=== PATIENT | female | born 1970 | race Two or more races ===

== ENCOUNTER → 2017-03-20 08:58 | Outpatient (CLI) | payer OTHER, SELFPAY | PROVIDERS: Family Provider Physician Assistant; PCP Physician Assistant; Visit Provider Emergency Medicine | DX: Z71.3 Dietary counseling and surveillance (principal); E11.8 Type 2 diabetes mellitus with unspecified complications ==

== ENCOUNTER 2017-03-23 16:21 | Emergency (ER) | payer OTHER, SELFPAY ==
[2017-03-23 19:07] VITALS: BP 160/99; PULSE 91; RESP 18; TEMP 37; O2SAT 96; BMI 29.2
[2017-03-23 19:22] LABS: Apearance,Urine Clear (Clear); Color,Urine Yellow (Yellow); Ketones,Urine TRACE (Negative); PH,Urine 5.5 (5.0-8.5); Protein,Urine Negative (Negative)
[2017-03-23 19:23] LABS: Bilirubin,Urine Negative (Negative); Blood, Urine Trace (Negative); UTC Leukocyte Esterase,Urine Negative (Negative); UTC Nitrate,Urine Negative (Negative); Urobilinogen,Urine 0.2 EU/dl (0.2)
--- NOTE | 2017-03-23 20:08 | HMH.EDUTC ---
[facility] [place] Disposition Clinical Impression: Flank pain, Urinary frequency, Hyperglycemia Abdominal pain Qualifiers: Abdominal location: unspecified location Qualified Code(s): R10.9 - Unspecified abdominal pain Disposition: Home, Self-Care Condition on Discharge: Good Instructions: DI for Abdominal Pain-Adult Additional Instructions: As we discussed, this could be multiple different things and requires further evaluation. We discussed transfer to ER for that evaluation but you would rather go home tonight and follow up with primary care in the morning. You agree to return to the ER immediately if pain worsens or fever develops tonight. Referrals: Tiffanie Rasheed PA [Primary Care Provider] - (Call office first thing in the morning. Schedule follow up appointment SHASHANK. ) Time of Disposition: 20:26 Medical Decision Making Vital Signs: 03/23/17 19:07 Temperature 98.6 F Temperature Source Temporal Artery Scan Pulse Rate [Right Brachial] 91 H Respiratory Rate 18 Blood Pressure [Right Arm] 160/99 Blood Pressure Mean [Right Arm] 119 Blood Pressure Source [Right Arm] Automatic Cuff Blood Pressure Position [Right Arm] Sitting 02 Sat by Pulse Oximetry 96 Oxygen Delivery Method Room Air - Lab Data Lab results reviewed: Yes: I reviewed the patient's lab results. Lab Results 03/23/17 19:16: Urine Color Yellow, Urine Appearance Clear, Urine pH 5.5, Ur Specific [place] 1.020, Urine Protein Negative, Urine Glucose (UA) 500 mg/dl, Urine Ketones Trace, Urine Blood Trace, Urine Nitrate Negative, Urine Bilirubin Negative, Urine Urobilinogen 0.2, Ur Leukocyte Esterase Negative - Ariel Inquiry Pt receiving controlled substance: No - Reevaluation(s) Reevaluation #1: Lengthy discussion regarding symptoms, [facility] guidelines and the need for further evaluation. Pt opts out of transfer to ER and plans to call PCP in the morning. Aware of the associated risks with not getting further evaluation tonight but still wants to wait and call PCP in morning. Agrees to return tonight for new or worsening symptoms. [facility] [place] HPI - General Stated complaint: possible kidney infection Time Seen by Provider: 03/23/17 20:05 Mode of Arrival: Ambulatory Source of Information: Patient Limitations: No Limitations Description of Symptoms (Recalled from Triage Doc. by RN): c/o possible kidney infection HEENT Symptoms (Recalled from RN notes): No Resp Symptoms (Recalled from RN notes): No Skin Symptoms (Recalled from RN notes): No MS Symptoms (Recalled from RN notes): No Functional Status (Recalled from RN notes): n/a - History of Present Illness Provider Complaint: c/o needing to be checked for a UTI due to sam low back pain x 2 weeks and urinary frequency a little longer . Reports a hx of uncontrolled DM w/ BS 400-500 last month or so. Brother and father found him and having a hard time so she has been under a lot of stress. Working with PCP, Tiffanie, to adjust medication. BS this morning better at 350. Has discussed symptoms with Tiffanie who encouraged her to give it time as should improve once BSs lower. Has seen a insight leader in the last month. No known sick contacts. No fever. Does report that pain is worse on the left and both sides radiate to abdomen but left more so. Hx of hysterectomy. Hx of frequent kidney stones. Reports needing procedures to break up stones every 3-4 months. Denies dysuria, hesitancy, change in urine color or an odor. - Related Data Allergies Allergy/AdvReac Type Severity Reaction Status Date / Time No Known Allergies Allergy Unverified 02/25/17 14:48 - Worker's Comp Is this a Worker's Comp case?: No [facility] History I have reviewed the patient's past medical history: Yes (depression) Medical History: Reports:: Diabetes Mellitus Type 2 Denies:: Cancer, Diabetes Mellitus Type 1, MRSA Amputation: No Fractures: No - *Social History Smoking Status: Never smoker Alcohol Intake: never - Psychiatric History
--- NOTE | 2017-03-23 20:12 | ED_ITS ---
[facility] [place] Clinical Impression: Flank pain, Urinary frequency, Hyperglycemia Abdominal pain Qualifiers: Abdominal location: unspecified location Qualified Code(s): R10.9 - Unspecified abdominal pain Disposition: Home, Self-Care Condition on Discharge: Good Instructions: DI for Abdominal Pain-Adult Additional Instructions: As we discussed, this could be multiple different things and requires further evaluation. We discussed transfer to ER for that evaluation but you would rather go home tonight and follow up with primary care in the morning. You agree to return to the ER immediately if pain worsens or fever develops tonight. Referrals: Tiffanie Rasheed PA [Primary Care Provider] - (Call office first thing in the morning. Schedule follow up appointment SHASHANK. ) Time of Disposition: 20:26 Medical Decision Making Vital Signs: 03/23/17 19:07 Temperature 98.6 F Temperature Source Temporal Artery Scan Pulse Rate [Right Brachial] 91 H Respiratory Rate 18 Blood Pressure [Right Arm] 160/99 Blood Pressure Mean [Right Arm] 119 Blood Pressure Source [Right Arm] Automatic Cuff Blood Pressure Position [Right Arm] Sitting 02 Sat by Pulse Oximetry 96 Oxygen Delivery Method Room Air - Lab Data Lab results reviewed: Yes: I reviewed the patient's lab results. Lab Results 03/23/17 19:16: Urine Color Yellow, Urine Appearance Clear, Urine pH 5.5, Ur Specific [place] 1.020, Urine Protein Negative, Urine Glucose (UA) 500 mg/dl, Urine Ketones Trace, Urine Blood Trace, Urine Nitrate Negative, Urine Bilirubin Negative, Urine Urobilinogen 0.2, Ur Leukocyte Esterase Negative - Ariel Inquiry Pt receiving controlled substance: No - Reevaluation(s) Reevaluation #1: Lengthy discussion regarding symptoms, [facility] guidelines and the need for further evaluation. Pt opts out of transfer to ER and plans to call PCP in the morning. Aware of the associated risks with not getting further evaluation tonight but still wants to wait and call PCP in morning. Agrees to return tonight for new or worsening symptoms. [facility] [place] - General Stated complaint: possible kidney infection Time Seen by Provider: 03/23/17 20:05 Mode of Arrival: Ambulatory Source of Information: Patient Limitations: No Limitations Description of Symptoms (Recalled from Triage Doc. by RN): c/o possible kidney infection HEENT Symptoms (Recalled from RN notes): No Resp Symptoms (Recalled from RN notes): No Skin Symptoms (Recalled from RN notes): No MS Symptoms (Recalled from RN notes): No Functional Status (Recalled from RN notes): n/a - History of Present Illness Provider Complaint: c/o needing to be checked for a UTI due to sam low back pain x 2 weeks and urinary frequency a little longer . Reports a hx of uncontrolled DM w/ BS 400-500 last month or so. Brother and father found him and having a hard time so she has been under a lot of stress. Working with PCP, Tiffanie, to adjust medication. BS this morning better at 350. Has discussed symptoms with Tiffanie who encouraged her to give it time as should improve once BSs lower. Has seen a technologist infectious disease in the last month. No known sick contacts. No fever. Does report that pain is worse on the left and both sides radiate to abdomen but left more so. Hx of hysterectomy. Hx of frequent kidney stones. Reports needing procedures to break up stones every 3-4 months. Denies dysuria, hesitancy, change in urine color or an odor. - Related Data Allergies
[2017-03-23 20:36] VITALS: BP 160/99; PULSE 91; RESP 18; TEMP 37; O2SAT 96
== END 2017-03-23 20:38 | disposition home or self-care (01) ==
PROVIDERS: Emergency Provider Nurse Practitioner Family; Family Provider Physician Assistant; PCP Physician Assistant
DX: R35.0 Frequency of micturition (principal); E11.65 Type 2 diabetes mellitus with hyperglycemia; R10.9 Unspecified abdominal pain
CPT/HCPCS: 81003; 99202

== ENCOUNTER → 2017-04-07 07:55 | Outpatient (CLI) | payer OTHER, SELFPAY ==
--- NOTE | 2017-04-07 07:58 | CT_ITS ---
CT abdomen pelvis wo con Ordering Physician: SUSAN Cochran Patient Age: 46 years: Female HISTORY: TECHNIQUE: Helical CT scanning performed the abdomen pelvis with no oral nor IV contrast utilized. COMPARISON :CT abdomen and pelvis 11/27/2016 FINDINGS Lung bases. No active disease. Stable less than 5 mm nodular density anterior RML . This is been present since 2010. Stable 4 mm calcified granuloma lingula Liver. Diffuse fatty changes generous sized liver Gallbladder removed. Cholecystectomy with no biliary ductal dilatation.. Spleen unremarkable.. Pancreas unremarkable Adrenal stable. Slight fullness left adrenal again noted with no significant nodule. KIDNEYS. Right kidney : two small 2.5 mm nodularity calculi lower pole again noted unchanged as November. No urinary tract obstruction right ureter appears normal caliber and course Left kidney. No renal calculi. No ureteral calculi. Pelvis urinary bladder unremarkable. Numerous phleboliths at the pelvic basin similar to previous studies. Hysterectomy. No adnexal masses. GI TRACT. Low-lying cecum. Appendix removed.. Terminal ileum unremarkable. Minimal stool colon. A few diverticuli throughout colon No bowel dilatation or obstruction.. Minor fatty wall thickening a cecum and ascending colon doubt of significance. No inflammation associated. Previous abdominal wall mesh graft for ventral hernia. A likely a small recurrent 2 cm fat-containing small focal protrusion just superior to the umbilicus axial slice 68. This is stable since previous studies septa note the slight hazy appearance of fat within this hernia. There is also a left lateral/spigelian type ventral hernia noted axial image 95. Focal triangular density is again seen here at this hernia defect &2016 exam.; possibly from hernia repair Correlation required.. In either case stable appearance IMPRESSION: --------- 1. . No acute findings abdomen or pelvis 2. No urinary tract obstruction .Stable small punctate calculi lower pole calyx right kidney. Nonobstructive. 3. Developing Diverticulosis most evident at redundant sigmoid colon. No diverticulitis evident. 4. Stable Mesh graft from ventral hernia repair. Small 2 cm fat-containing hernia appears to recur just above the umbilicus here in this region. Stable except to note slight hazy appearance of fat at this hernia. Correlation required. 5.. Stable Leftleft lateral/spigelian type ventral hernia with likely previous hernia repair
== END ==
PROVIDERS: Family Provider Physician Assistant; PCP Physician Assistant; Visit Provider Physician Assistant
DX: R10.9 Unspecified abdominal pain (principal); R31.9 Hematuria, unspecified; N20.0 Calculus of kidney
CPT/HCPCS: 74176

== ENCOUNTER → 2017-05-13 09:54 | Outpatient (CLI) | payer OTHER, SELFPAY ==
--- NOTE | 2017-05-13 09:57 | XR_ITS ---
XR hip RT 2-3V w/pelvis HISTORY: ITS.REASON: pain/injury from fall last week ORDERING PHYSICIAN: SUSAN Cochran PATIENT AGE: 46 years COMPARISON: None FINDINGS: No fracture or dislocation is evident. No significant degenerative change. No lytic or blastic change. Unremarkable soft tissues. There are multiple abdominal wall tacks. A small bone island is present in the proximal femur at 7 mm laterally IMPRESSION: Negative right hip
== END ==
PROVIDERS: PCP Physician Assistant; Visit Provider Physician Assistant
DX: M25.551 Pain in right hip (principal)
CPT/HCPCS: 73502

== ENCOUNTER → 2017-06-03 08:36 | Outpatient (CLI) | payer OTHER, SELFPAY ==
--- NOTE | 2017-06-03 08:39 | MM_ITS ---
MM Dig screening mamm BI w/CAD CAD Screening ORDERING PHYSICIAN : SUSAN Cochran PATIENT AGE: 46 years GENDER: Female COMPARISON: : October INDICATION: Routine screening. No hormones no new complaints. Noncontributory family history TECHNIQUE: Standard CC and MLO images were obtained. R2 CAD reviewed. FINDINGS: Moderate scattered fibroglandular elements throughout both breasts that moderate breast density RIGHT BREAST:Appear stable and unchanged follow-up in one year on right LEFT BREAST:No new findings left breast. There is area of slight architectural variation at superior left breast but this was seen on previous studies from 2010 CAD computer review highlights no areas of significant concern either breast =====IMPRESSION: . Stable mammogram with No significant new findings. Follow-up in one year recommended and should be encouraged BI-RADS Category: 2 Benign Finding(s) RECOMMENDED FOLLOW-UP: 1YR - 1 YEAR FOLLOW-UP (A letter has been sent to the patient regarding results of the study.)
== END ==
PROVIDERS: Family Provider Physician Assistant; PCP Physician Assistant; Visit Provider Physician Assistant
DX: Z12.31 Encounter for screening mammogram for malignant neoplasm of breast (principal)
CPT/HCPCS: 77067

== ENCOUNTER → 2017-06-10 09:47 | Outpatient (CLI) | payer OTHER, SELFPAY ==
--- NOTE | 2017-06-10 09:49 | XR_ITS ---
XR lumbar spine 2-3V COMPARISON: Thoracolumbar spine 12/25/2016 HISTORY: Low back pain TECHNIQUE: AP and lateral views and spot view lumbar sacral junction FINDINGS: All lumbar vertebrae appear intact and disc spaces are well-maintained throughout. There is a borderline increased lumbosacral angle at the L5-S1 level which could be a cause for instability of the lower back and/or low back pain. The metallic mesh tactics are again seen overlying the mid lumbar spine likely from previous ventral hernia surgery. The SI joints are normal. IMPRESSION: Slightly accentuated lumbar lordosis otherwise unremarkable lumbar spine
--- NOTE | 2017-06-10 09:49 | XR_ITS ---
XR thoracic spine 3V COMPARISON: PA and lateral chest 04/02/2016 HISTORY: Back pain TECHNIQUE: AP and lateral views and swimmer's view cervicothoracic junction FINDINGS: There is normal curvature and alignment. There is no evidence of recent or old compression fracture pedicles are intact and is no paraspinal mass. IMPRESSION: Negative thoracic spine
== END ==
PROVIDERS: PCP Emergency Medicine; Visit Provider Nurse Practitioner Family
DX: M54.9 Dorsalgia, unspecified (principal); M54.6 Pain in thoracic spine; M54.5 Low back pain
CPT/HCPCS: 72072; 72100

== ENCOUNTER 2017-07-10 08:30 | Outpatient (RCR) | payer OTHER, SELFPAY ==
--- NOTE | 2017-06-17 11:32 | HMH.PTOPEV ---
Rehab Outpatient Evaluation Rehab OP Evaluation Start: 06/17/17 11:22 Freq: Status: Active Protocol: Document 06/17/17 11:22 ARMANDO (Rec: 06/17/17 11:32 ARMANDO [id number]) Electronically Signed By Elías Anthony, PT 06/17/17 11:22 Outpatient Therapy Subjective History Subjective History Pt reports h/o chronic R sided LBP and R hip area for ~1yr. Pt reports exacerbation of s/s occurred when she was tripped by her dog, and s/s became more severe and frequent, with R LE buckling, R LE mm spasms , and R groin area pain. Chief Complaint Pain Spasms Stiff Gives out/Unstable Paresthesia Weakness Symptom Type Ache Throb Sharp Dull Symptoms Relieved By Rest/Positioning Symptoms Aggravated By Sitting Physical Activity Walking Prior Functional Limitations Lifting Housework Sitting Stairs Bending/Stooping Current Functional Limitations Lifting Housework Sitting Stairs Bending/Stooping Symptom Description Constant but Variable Level of pain today (0-10) 5 Pain scale - at its best (0-10) 3 Pain scale - at its worst (0-10) 8 Lumbopelvic Eval Posture Thoracic Spine Posture Standing Position Neutral Lumbar Spine Posture Standing Position Increased Lordosis Assistive device Assistive Devices None / NA Gait Observation General Gait Pattern Observation Antalgic Gait Decrease Stride Lngth (R) Palapation tenderness right paraspinal tenderness Yes: 3/4 buttock tenderness Yes: 3/4 Lumbar/Sacral Palpation Findings Tenderness Muscle Guarding Lumbar/Sacral Palpation Overall Comment 3/4 Accessory Movement T-spine Vertebrae Accessory Movements Central P/A [place] that Elicit Symptoms S1 right bilateral Range of Motion Lumbar Spine Active Flexion Range of 0-45 Motion (degrees) Lumbar Spine Active Extension Range of 0-25 Motion (degrees
== END 2017-07-10 08:31 | disposition home or self-care (01) ==
LOC: PT 08:30
PROVIDERS: Family Provider Physician Assistant; PCP Emergency Medicine; Visit Provider Nurse Practitioner Family
DX: M25.551 Pain in right hip (principal); M54.9 Dorsalgia, unspecified
CPT/HCPCS: 97010; 97014; 97033; 97035; 97110; G0283

== ENCOUNTER → 2017-07-29 12:21 | Outpatient (CLI) | payer OTHER, SELFPAY ==
[2017-07-29 14:32] LABS: Free T4 (Free Thyroxine) 0.84 ng/dl (0.76-1.46); Thyroid Stimulating Hormone 0.68 uIU/ml (0.358-3.740)
== END ==
PROVIDERS: Family Provider Physician Assistant; PCP Emergency Medicine; Visit Provider Nurse Practitioner Family
DX: R39.89 Other symptoms and signs involving the genitourinary system (principal); L65.9 Nonscarring hair loss, unspecified; E11.9 Type 2 diabetes mellitus without complications
CPT/HCPCS: 36415; 84439; 84443

== ENCOUNTER → 2017-10-13 10:05 | Outpatient (CLI) | payer OTHER, SELFPAY ==
--- NOTE | 2017-10-13 11:35 | XR_ITS ---
XR KUB HISTORY: ITS.REASON: Flank Pain ORDERING PHYSICIAN: Hiwot Oneil PATIENT AGE: 47 years COMPARISON: None FINDINGS: Multiple small calcific densities overlie the mid abdominal region on the left consistent with phleboliths. Sondra also present in the right mid to lower abdomen and multiple pelvic phleboliths are present. Multiple abdominal wall tacks are present. No obvious renal or ureteral calculi. IMPRESSION: No acute finding
== END ==
LOC: LAB 10:11 → RAD 11:36
PROVIDERS: PCP Nurse Practitioner Family; Visit Provider Nurse Practitioner Family
DX: R10.9 Unspecified abdominal pain (principal); R11.2 Nausea with vomiting, unspecified; M54.5 Low back pain
CPT/HCPCS: 74018; 87086

== ENCOUNTER → 2017-11-20 13:49 | Outpatient (CLI) | payer OTHER, SELFPAY ==
--- NOTE | 2017-11-20 13:52 | XR_ITS ---
XR foot wt bearing LT 3V HISTORY: ITS.REASON: pain ORDERING PHYSICIAN: Odalys Oliver DPM PATIENT AGE: 47 years COMPARISON: None FINDINGS: No fracture or dislocation. No lytic or blastic change. There is normal mineralization.. The joint spaces are well-preserved. No significant degenerative/arthritic changes. No erosive changes evident. IMPRESSION: Negative, no acute finding
--- NOTE | 2017-11-20 13:52 | XR_ITS ---
XR foot wt bearing RT 3V HISTORY: ITS.REASON: pain ORDERING PHYSICIAN: Odalys Oliver DPM PATIENT AGE: 47 years COMPARISON: None FINDINGS: Mild hallux valgus noted with mild hypertrophic change and soft tissue swelling at the distal aspect of the first metatarsal. No fracture or dislocation. No other significant anomalies. IMPRESSION: Mild hallux valgus with bunion formation
== END ==
PROVIDERS: PCP Emergency Medicine; Visit Provider Podiatrist
DX: M79.672 Pain in left foot (principal); M79.671 Pain in right foot
CPT/HCPCS: 73630

== ENCOUNTER → 2018-06-22 13:30 | Outpatient (CLI) | payer OTHER, SELFPAY ==
[2018-06-22 14:39] LABS: Basophils % 0.6 % (0.1-2.0); Eosinophils # 0.1 K/mm3 (0.0-0.4); Eosinophils % 1.8 % (0.1-12.0); Hematocrit 43.2 % (37.0-47.0); Hemoglobin 14.5 g/dL (12.2-16.2); Lymphocytes # 2.7 K/mm3 (0.7-4.5); Lymphocytes % 39.5 % (10-50); Mean Corpuscular HGB Conc 33.6 g/dL (31.8-35.4); Mean Corpuscular Hemoglobin 30.1 pg (27.0-31.2); Mean Corpuscular Volume 89.8 fl (81-99); Mean Platelet Volume 9.1 fl (7.4-10.4); Monocytes # 0.3 K/mm3 (0.1-1.0); Monocytes % 4.3 % (1.7-9.3); Neutrophils # 3.7 K/mm3 (1.8-7.8); Neutrophils % 53.8 % (37.0-80.0); Platelet Count 240 K/mm3 (142-424); Red Blood Count 4.81 M/mm3 (4.20-5.40); Red Cell Distribution Width 12.7 % (11.5-17.5); White Blood Count 6.9 K/mm3 (4.8-10.8)
[2018-06-22 14:54] LABS: T4 (Thyroxine) 8.3 ug/dl (4.7-13.3); Thyroid Stimulating Hormone 0.67 uIU/ml (0.358-3.740)
== END ==
PROVIDERS: Visit Provider Nurse Practitioner Family
DX: R10.9 Unspecified abdominal pain (principal)
CPT/HCPCS: 84436; 84443; 85025

== ENCOUNTER → 2018-07-17 09:24 | Outpatient (CLI) | payer OTHER, SELFPAY ==
--- NOTE | 2018-07-17 09:26 | MM_ITS ---
MM Dig screening mamm BI w/CAD CAD Screening COMPARISON: Digital mammograms with CAD 06/03/2017 and 04/04/2016 INDICATION: There is no personal or family history of breast cancer TECHNIQUE: Standard CC and MLO images were obtained. R2 CAD reviewed. FINDINGS: Moderate diffuse fibroglandular densities are seen in both breast. Again noted is a benign-appearing macrocalcification upper outer quadrant right breast. There is no suspicious lesion and there are no suspicious microcalcifications. IMPRESSION: Moderate breast density with no suspicious lesion seen BI-RADS Category: 2 Benign Finding(s) RECOMMENDED FOLLOW-UP: 1YR - 1 YEAR FOLLOW-UP (A letter has been sent to the patient regarding results of the study.)
== END ==
PROVIDERS: PCP Emergency Medicine; Visit Provider Physician Assistant
DX: Z12.31 Encounter for screening mammogram for malignant neoplasm of breast (principal)
CPT/HCPCS: 77067

== ENCOUNTER → 2018-07-23 08:45 | Outpatient (CLI) | payer OTHER, SELFPAY ==
[2018-07-23 09:05] LABS: Blood Urea Nitrogen 11 mg/dL (7-18); Creatinine,Serum 0.71 mg/dL (0.55-1.02); Estimated Glomerular Filt Rate 87 ml/min (>60); GFR (African American) 106 ML/MIN (>60)
--- NOTE | 2018-07-23 09:32 | CT_ITS ---
CT abdomen pelvis w con INDICATION: Left lower quadrant pain. HISTORY of spigeleian hernia hernia repair ITS.REASON: left lower quad pain ORDERING PHYSICIAN: Sha Marinelli MD PATIENT AGE: 47 years COMPARISON: CT abdomen and pelvis a 918 TECHNIQUE: 75 cc of the Optiray 350 given IV contrast.. Redicat oral contrast given Axial images obtained with sagittal and coronal reformats. All CT scans at the facility use one or more dose reduction, viz: automated exposure control, ma/kV adjustment per patient size (including targeted exams where dose is matched to indication, i.e. head), or iterative reconstruction technique. FINDINGS: Lower thorax. Lung bases clear with no acute findings. Heart normal size. No pericardial effusion abdomen liver, spleen, pancreas, adrenals appear satisfactory. Unremarkable Gallbladder surgically removed with clips at gallbladder fossa. No biliary ductal dilatation. No pancreatic ductal dilatation. tract. No urinary tract calculi or obstruction. Right kidney: slight generous right renal pelvis again observed; but this appears to be similar to studies dating back to March 2017 . Left kidney unremarkableq Ureters are normal course and caliber Pelvis. No adnexal masses. Uterus is been removed. . No significant free fluid Air within the vagina upper normal wall thickness Urinary bladder upper normal wall thickness. GI TRACT stomach unremarkable duodenal loop upper normal wall thickness. Small bowel. Unremarkable. Normal caliber. Contrast throughout. No wall thickening. No dilatation. Terminal ileum appears normal.q.. No evidence of appendicitis. No inflammatory changes right lower quadrant. Left lower quadrant a few diverticuli at sigmoid colon but no good evidence of diverticulitis Moderate stool throughout the colon. spigeleian hernia hernia repair anterior LLQ related to such.-No change since 2018 study. Slight bulging of fat overlying this area. [place] soft tissue density hernia repair feature along inner aspect of the hernia-Stable lSmall 18 mm fat-containing small round ventral periumbilical hernia along the superior aspect of the umbilicus.... Ventral . Mesh graft anterior hernia repairs with mesh graft applied to the anterior aspect of the anterior abdominal wall and secured by the numerous anchors. Thiscovers the umbilicus as well as the small fat-containing para umbilical midline hernia discussed above. . No retroperitoneal adenopathy. No significant pelvic or mesenteric adenopathy. Osseous structures. No significant findings. IMPRESSION: No acute findings in the abdomen or pelvis. No bowel dilatation or obstruction. Only moderate solid stool throughout the colon . Perhaps few small developing diverticuli at the sigmoid colon but no acute diverticulitis No acute inflammatory changes at the pelvis Previousspigeleian hernia hernia repair -unchanged. No additional findings or inflammation here. Previous anterior mesh graft appear to have progressed previous ventral hernia . No urinary tract calculi nor obstruction.
== END ==
PROVIDERS: Visit Provider Surgery
DX: K43.9 Ventral hernia without obstruction or gangrene (principal); R10.32 Left lower quadrant pain; Z09 Encounter for follow-up examination after completed treatment for conditions other than malignant neoplasm
CPT/HCPCS: 36415; 74177; 82565; 84520; Q9967

== ENCOUNTER 2018-09-09 10:00 | Outpatient (RCR) | payer OTHER, SELFPAY ==
--- NOTE | 2018-08-11 09:00 | HMH.PTOPEV ---
PT Outpatient Evaluation Rehab PT Outpatient Evaluation Start: 08/11/18 08:04 Freq: Status: Active Protocol: Document 08/11/18 08:45 OSCARROBIN (Rec: 08/11/18 09:00 ABY [id number]) Electronically Signed By Ej Caruso PT 08/11/18 08:45 Outpatient Therapy Subjective History Subjective History This is the initial Physical Therapy evalution for Safia Tobias. Pt is a 48 y/o female referred to PT for c/o pain and burning in B feet. Pt reports she has neuropathy from diabetes, and possibly from back issues. Pt reports she does not think physical therapy will help with her neuropathy. Benefits of exercise on blood sugar and circulation were explained to pt and she agrred to give therapy a try ; also explained was the benefits and necessity of lifestyle changes to improving blood sugar and A1C levels. Chief Complaint Pain,Swelling,Paresthesia Symptom Type Ache,Throb,Sharp,Dull,Stabbing ,Burning,Numbness,Tingling, Shooting Symptoms Relieved By Rest/Positioning Symptoms Aggravated By Standing,Physical Activity, Walking Prior Functional Limitations Housework,Sleeping,Standing, Recreation Activity,Walking, Stairs,Balance Current Functional Limitations Housework,Sleeping,Standing, Recreation Activity,Walking, Stairs,Balance Symptom Description Constant but Variable Level of pain today (0-10) 3 Pain scale - at its best (0-10) 3 Pain scale - at its worst (0-10) 7 Ankle/Foot Eval Gait Observation General Gait Pattern Observation Antalgic Gait,Wide Based Gait Assistive Device Ambulation Assistive Device None ROM bilateral Ankle/Foot ROM Reason Not Measured Within Functional Limits MMT Ankle Dorsiflexion Strength Grade 4- Good- Ankle Plantarflexion Strength Grade 4 Good Foot Eversion Strength Grade 4- Good- Foot Inversion Strength Grade 4 Good Ankle Dorsiflexors Muscle Tone Normal Description Neuro tests normal sensation to monofilament No: 1 out of 10 sensation to LT decrease sensation to monofilament Yes: 1/10 s
== END 2018-09-09 10:05 | disposition home or self-care (01) ==
LOC: PT 10:00
PROVIDERS: Visit Provider Podiatrist
DX: R29.898 Other symptoms and signs involving the musculoskeletal system (principal)
CPT/HCPCS: 97110; 97112; 97163

== ENCOUNTER → 2018-10-23 12:02 | Outpatient (CLI) | payer OTHER, SELFPAY ==
--- NOTE | 2018-10-23 12:06 | XR_ITS ---
PROCEDURE: XR WRIST LT W SCAPHOID CLINICAL INDICATION: fall Posttraumatic pain COMPARISON: No exams were available for comparison FINDINGS: No fracture, dislocation, lytic change, or blastic change evident. No significant degenerative change IMPRESSION: Negative left wrist Dictated by: Simón Muñoz MD 10/23/2018 13:06 Signed by: <Electronically signed by Simón Muñoz MD in [place]> 10/23/2018 13:06
--- NOTE | 2018-10-23 12:06 | XR_ITS ---
PROCEDURE: XR HAND LT MIN 3V CLINICAL INDICATION: fall Pain following injury COMPARISON: No exams were available for comparison FINDINGS: No fracture, dislocation, lytic change, or blastic change evident. No significant degenerative change IMPRESSION: Negative left hand Dictated by: Simón Muñoz MD 10/23/2018 13:06 Signed by: <Electronically signed by Simón Muñoz MD in [place]> 10/23/2018 13:06
== END ==
PROVIDERS: PCP Emergency Medicine; Visit Provider Nurse Practitioner Family
DX: M25.532 Pain in left wrist (principal); M79.642 Pain in left hand
CPT/HCPCS: 73110; 73130

== ENCOUNTER → 2018-10-27 10:42 | Outpatient (CLI) | payer OTHER, SELFPAY ==
--- NOTE | 2018-10-27 10:47 | XR_ITS ---
PROCEDURE: XR FOOT WT BEARING LT 3V CLINICAL INDICATION: bilaterbal foot/ankle pain Diabetic neuropathy COMPARISON: No exams were available for comparison FINDINGS: No fracture or dislocation. No lytic or blastic change. There is normal mineralization. The joint spaces are well-preserved. No significant degenerative/arthritic changes. No erosive changes evident. Other findings:None. IMPRESSION: No acute findings. Dictated by: Simón Muñoz MD 10/27/2018 12:40 Signed by: <Electronically signed by Simón Muñoz MD in [place]> 10/27/2018 12:40
--- NOTE | 2018-10-27 10:47 | XR_ITS ---
PROCEDURE: XR FOOT WT BEARING RT 3V CLINICAL INDICATION: bilaterbal foot/ankle pain Foot pain, ankle pain COMPARISON: No exams were available for comparison FINDINGS: No fracture or dislocation. No lytic or blastic change. There is normal mineralization. The joint spaces are well-preserved. No significant degenerative/arthritic changes. No erosive changes evident. Other findings:Mild hallux valgus IMPRESSION: No acute findings. Dictated by: Simón Muñoz MD 10/27/2018 11:17 Signed by: <Electronically signed by Simón Muñoz MD in [place]> 10/27/2018 11:17
--- NOTE | 2018-10-27 10:47 | XR_ITS ---
PROCEDURE: XR ANKLE WT BEARING RT MIN 3V CLINICAL INDICATION: bilaterbal foot/ankle pain Ankle pain COMPARISON: No exams were available for comparison FINDINGS: No fracture, dislocation, lytic change, or blastic change evident. No significant degenerative change IMPRESSION: No acute findings. Dictated by: Simnó Muñoz MD 10/27/2018 11:16 Signed by: <Electronically signed by Simón Muñoz MD in [place]> 10/27/2018 11:16
--- NOTE | 2018-10-27 10:47 | XR_ITS ---
PROCEDURE: XR ANKLE WT BEARING LT MIN 3V CLINICAL INDICATION: bilaterbal foot/ankle pain Ankle pain COMPARISON: No exams were available for comparison FINDINGS: No fracture, dislocation, lytic change, or blastic change evident. No significant degenerative change. Small phleboliths is present along the medial aspect of the leg IMPRESSION: No acute findings. Dictated by: Simón Muñoz MD 10/27/2018 11:17 Signed by: <Electronically signed by Simón Muñoz MD in [place]> 10/27/2018 11:17
== END ==
PROVIDERS: PCP Physician Assistant; Visit Provider Podiatrist
DX: M79.672 Pain in left foot (principal); M79.671 Pain in right foot; M25.572 Pain in left ankle and joints of left foot; M25.571 Pain in right ankle and joints of right foot
CPT/HCPCS: 73610; 73630

== ENCOUNTER → 2019-01-01 11:08 | Outpatient (CLI) | payer OTHER, SELFPAY ==
--- NOTE | 2019-01-01 11:13 | XR_ITS ---
PROCEDURE: XR FINGER LT MIN 2V CLINICAL INDICATION: pain Injury with pain COMPARISON: No exams were available for comparison FINDINGS: No fracture or dislocation. No lytic or blastic change. There is normal mineralization. The joint spaces are well-preserved. No significant degenerative/arthritic changes. No erosive changes evident. Other findings:No radiopaque foreign body IMPRESSION: No acute findings. Dictated by: Simón Muñoz MD 01/01/2019 12:17 Electronically signed by Simón Muñoz MD in [place] 01/01/2019 12:17
== END ==
PROVIDERS: PCP Emergency Medicine; Visit Provider Nurse Practitioner Family
DX: T14.8XXA Other injury of unspecified body region, initial encounter (principal)
CPT/HCPCS: 73140

== ENCOUNTER → 2019-02-09 09:52 | Outpatient (CLI) | payer OTHER, SELFPAY ==
--- NOTE | 2019-02-09 09:59 | XR_ITS ---
PROCEDURE: XR CHEST 2V CLINICAL HISTORY: cough, fever Asthma, cough, fever COMPARISON: CTAC CTA-CHEST from 02/21/2015 CXR CHEST(2 VIEWS-NOT PORTABLE) from 02/21/2015 CXR CHEST(2 VIEWS-NOT PORTABLE) from 04/02/2016 CXR1VP XR chest portable from 01/15/2018 FINDINGS: The cardiomediastinal silhouette and pulmonary vascularity are within normal limits. The lungs are clear without infiltrates, suspicious nodules, or pleural effusions. There is some slight increased density in the left lung base which may be related to pleural fat. No air bronchograms. Somewhat similar appearance on 04/02/2016. No acute bony findings. IMPRESSION: No acute findings. Dictated by: Simón Muñoz MD 02/09/2019 16:21 Electronically signed by Simón Muñoz MD in [place] 02/09/2019 16:21
== END ==
PROVIDERS: PCP Physician Assistant; Visit Provider Physician Assistant
DX: R05 Cough (principal)
CPT/HCPCS: 71046

== ENCOUNTER → 2019-04-02 11:22 | Outpatient (CLI) | payer OTHER, SELFPAY ==
--- NOTE | 2019-04-02 11:23 | NM_ITS ---
APPROVED REPORT Exam: Nuclear Stress Test Indication: QUESTIONABLE AK, HTN, DM, HYPERLIPIDEMIA, FM HX, CP, SOB, PALPITATIONS, SYNCOPE, FATIGUE, ABN EKG Patient Location: Outpatient Stress Tech: Lashonda Jallohnkson NM Tech:Janna Garcia ARRMarah RT (R)(N)(M) Ht: 5 ft 1 in Wt: 156 lbs Bra Size: 36C HR: 74 bpm BP: 123/86 mmHg BSA: 1.70 m2 BMI: 29.4 History: QUESTIONABLE AK, HTN, DM, HYPERLIPIDEMIA, FM HX, CP, SOB, PALPITATIONS, SYNCOPE, FATIGUE, ABN EKG Procedure: Patient exercised on Eliezer protocol 7:30 minutes and sec, resting heart rate 74 bpm, resting blood pressure 123/86 mmHg, with exercise maximum heart rate achived was 164 bpm which is Greater than 85 % of the maximum predicted heart rate and blood pressure was 145/86 mmHg. Test was stopped due to Shortness of breath. Patient denied any complaint of chest pain. Patient has Good exercise capacity, achieved 10.1 METs of workload on treadmill, the blood pressure response to exercise was Adequate. Electrocardiogram Resting electrocardiogram showed sinus rhythm poor R wave progression nonspecific ST-T changes, with exercise there is less than 1.[address] segment depression noted from the baseline EKG. The EKG portion of the exercise Myoview is nondiagnostic due to baseline abnormal EKG. Cardiac Stress and Resting SPECT Images: Cardiac Stress and Resting SPECT images were obtained using technetium 99m Myoview 31.3 mCi stress and 10.93 mCi at rest. Gated SPECT for analysis of segmental wall motion and calculation of the ejection fraction also done. Cardiac stress and resting SPECT images show uniform myocardial activity without segmental perfusion abnormality, computer derived ejection fraction is over 65% with no regional wall motion abnormality, right ventricle is normal size and contractility. Conclusion: 1. The EKG portion of the exercise Myoview is nondiagnostic due to baseline abnormal EKG, patient has good exercise capacity achieved 10.1 mets of workload on treadmill, the blood pressure response to exercise was adequate, there was no exercise-induced chest discomfort, test was stopped due to shortness of breath. 2. No scintigraphic evidence of reversible ischemia seen at this level of exercise, computer derived ejection fraction is over 65% with no regional wall motion abnormality, right ventricle is normal size and contractility. 3. Normal exercise Myoview study. Electronically signed by : Reece Steven, 04/02/2019 15:24:34
--- NOTE | 2019-04-02 13:30 | CA_ITS ---
APPROVED REPORT Exam: Exercise Treadmill Technologist: Mallorie Downey, Ht: 5 ft 1 in Wt: 156 lbs BSA: 1.70 m2 HR: 74 bpm BP: 123/86 mmHg Rhythm: SINUS RHYTHM Indications: Chest pain Medical History Medical History: HTN, Hyperlipidemia, Diabetic ??? Noninsulin Medications: Lisinopril,,,,, Metformin,,,,, Gabapentin,,,,, INSULIN,,,,, Diclofenac,,,,, Tizanidine,,,,, Venlafaxine,,,,, Amiltriptyline,,,,, Quetiapine,,,,, AtorvastaIN,,,,, Sitagliptin,,,,, Metoprol,,,,, Allergies: NKA Cardiac Risk Factors: HTN, Hyperlipidemia, Diabetes (non-insulin), FHX of CAD Stress Test Details Test: Sylwia HR Resting HR: 80 bpm Max Heart Rate (APMHR): 170 bpm Max HR Achieved: 184 bpm Target HR (85% APMHR): 144 bpm % of APMHR: 108 Recovery HR: 169 bpm BP Resting BP: 123.0/86.0 mmHg Max BP: 145.0/92.0 mmHg Recovery BP: 145.0/86.0 mmHg ECG Resting ECG: SINUS RHYTHM Clinical Exercise duration: 07:45 min Highest Stage Achieved: Exercise capacity: 10.1 METs Stress ECG Conclusion SYLWIA PROTOCOL COMPLETED. EXERCISED 7:45. METS = 10.1. MAX BP 145/92. MAX HEART RATE 184 BPM. TEST STOPPED DUE TO SOA. NO CHEST PAIN. SHORTNESS OF BREATH AT PEAK EXERCISE BUT RESOLVED IN RECOVERY. NO ECTOPY. LESS THAN 1.5MM ST DEPRESSION. IMAGES TO FOLLOW, Test Summary REST . . . . . . . Standing REST . . . . . . . Standing REST . . . . . . . Sitting REST 04:31 0.0 0.0 80 . 123/ 86 . . Stage 1 01:00 10.0 1.7 103 . . . . Stage 1 02:00 10.0 1.7 114 . . . . Stage 1 03:00 10.0 1.7 123 . 125/ 85 . . Stage 2 01:00 12.0 2.5 136 . . . . Stage 2 02:00 12.0 2.5 149 . . . . Stage 2 03:00 12.0 2.5 162 . 145/ 92 . . Stage 3 . . . . . . . Myoview Injected Stage 3 01:00 14.0 3.4 175 . . . . Stage 3 01:45 14.0 3.4 184 . . . Stop exercise at 07:45 RECOVERY 01:00 0.0 0.0 169 . 145/ 86 . . RECOVERY 02:00 0.0 0.0 152 . 145/ 86 . . RECOVERY 03:00 0.0 0.0 133 . 134/ 80 . . RECOVERY 04:00 0.0 0.0 128 . 140/ 76 . . RECOVERY 05:00 0.0 0.0 120 . 131/ 71 . . RECOVERY 05:49 0.0 0.0 116 . 118/ 68 . . Electronically signed by : Reece Steven, 04/02/2019 15:22:09
== END ==
PROVIDERS: PCP Emergency Medicine; Visit Provider Nurse Practitioner Family
DX: R07.9 Chest pain, unspecified (principal); R06.00 Dyspnea, unspecified; I10 Essential (primary) hypertension
CPT/HCPCS: 78452; 93017; A9502

== ENCOUNTER → 2019-04-06 09:08 | Outpatient (CLI) | payer OTHER, SELFPAY ==
--- NOTE | 2019-04-06 09:12 | XR_ITS ---
PROCEDURE: XR ANKLE WT BEARING RT MIN 3V CLINICAL INDICATION: bunion of right great toe COMPARISON: [id number] XR foot wt bearing RT 3V from 11/20/2017 XR FOOT WT BEARING RT 3V from 10/27/2018 XR ANKLE WT BEARING RT MIN 3V from 10/27/2018 XR FOOT WT BEARING RT 3V from 04/06/2019 FINDINGS: Normal alignment. Preserved mortise. Unremarkable talar dome. The low on the lateral view there is an of 13 mm by 5 mm cystic appearing region at the distal tibia. This may be due to artifact from prominent bony trabeculation. Not significantly changed from 11/20/2017. The There is mild hallux valgus with mild osteoarthritic change at the 1st MTP joint not significantly changed. Otherwise negative foot. IMPRESSION: Overall no significant change with no acute finding. Minimal hallux valgus. Decreased attenuation of the distal tibia nonspecific and may be artifact from prominent trabeculation Dictated by: Simón Muñoz MD 04/06/2019 15:03 Electronically signed by Simón Muñoz MD in [place] 04/06/2019 15:03
== END ==
PROVIDERS: PCP Emergency Medicine; Visit Provider Podiatrist
DX: M21.611 Bunion of right foot (principal)
CPT/HCPCS: 73610; 73630

== ENCOUNTER 2019-08-05 17:56 | Emergency (ER) | payer OTHER, SELFPAY ==
[2019-08-05 18:03] VITALS: BP 144/95; PULSE 117; RESP 18; O2SAT 96; BMI 31.5
[2019-08-05 18:18] VITALS: BP 144/95; PULSE 117; RESP 18; TEMP 37; O2SAT 96; BMI 31.5
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
[2019-08-05 19:05] VITALS: BP 144/95; PULSE 117; RESP 18; TEMP 37; O2SAT 96
== END 2019-08-05 19:10 | disposition home or self-care (01) ==
PROVIDERS: Emergency Provider Nurse Practitioner Family; PCP Emergency Medicine
DX: T23.192A Burn of first degree of multiple sites of left wrist and hand, initial encounter (principal); T21.11XA Burn of first degree of chest wall, initial encounter; X12.XXXA Contact with other hot fluids, initial encounter; Y92.019 Unspecified place in single-family (private) house as the place of occurrence of the external cause; I10 Essential (primary) hypertension; E78.5 Hyperlipidemia, unspecified; E55.9 Vitamin D deficiency, unspecified; Z87.891 Personal history of nicotine dependence; E11.9 Type 2 diabetes mellitus without complications; Z79.4 Long term (current) use of insulin
CPT/HCPCS: 99201

== ENCOUNTER → 2019-08-09 14:41 | Outpatient (CLI) | payer OTHER, SELFPAY ==
--- NOTE | 2019-08-09 14:48 | XR_ITS ---
PROCEDURE: XR KNEE RT 3V CLINICAL INDICATION: recent fall Posttraumatic pain COMPARISON: KNEE3R KNEE-3 VIEWS-RT from 07/05/2014 FINDINGS: No fracture or dislocation. No lytic or blastic change. There is normal mineralization. The joint spaces are well-preserved. No significant degenerative/arthritic changes. No erosive changes evident. Other findings:None. IMPRESSION: No acute findings. Dictated by: Simón Muñoz MD 08/09/2019 15:35 Electronically signed by Simón Muñoz MD in [place] 08/09/2019 15:35
== END ==
PROVIDERS: PCP Emergency Medicine; Visit Provider Physician Assistant
DX: M25.561 Pain in right knee (principal)
CPT/HCPCS: 73562

== ENCOUNTER → 2020-08-28 14:53 | Outpatient (CLI) | payer BC, SELFPAY | PROVIDERS: PCP Internal Medicine; Visit Provider Urology | DX: R55 Syncope and collapse (principal) | CPT/HCPCS: 93270 ==

== ENCOUNTER → 2020-09-22 15:08 | Outpatient (CLI) | payer BC, SELFPAY ==
--- NOTE | 2020-09-22 15:09 | CA_ITS ---
APPROVED REPORT EXAM: Comprehensive 2D, Doppler, and color-flow Echocardiogram Sand Car Worker: Hermila Gonzalez RT(R) Ht: 5 ft 1 in Wt: 150lbs BSA: 1.67 BP: 121/85 mmHg Indications: ex smoker, syncope, HTN, DM, SOB, hyperlipidemia, tachycardia, asthma 2D Dimensions LVOT 1.97 cm (M/F) 1.5-2.5 LVEF (Sandoval's) 60.20 % F: 54 - 74 LV Volume 64.80 mL F: 46 - 106 LV Volume Index 38.80 mL/m2 F: 29 - 61 LA Volume 21.40 mL LA Volume Index 12.81 mL/m2 (M/F) 16-34 M-Mode Dimensions RVDd 2.35 cm (0.9-2.6) LA Diam 3.69 cm (1.9-4.0) LVDd 5.25 cm (3.5-5.7) Ao Diam 2.51 cm (2.0-3.7) LVDs 3.82 cm (3.5-5.7) IVSd 0.68 cm (0.6-1.1) PWd 0.78 cm (0.6-1.1) EF (Teich) 52.60% FS 27.20% EDV (Teich) 132.40 mL ESV (Teich) 62.70 mL LV Diastology E Decel Time 190.00 (160-240 msec) E/A Ratio 1.41 MED E' 9.00 (< 7 cm/sec) E'/MED E' Ratio 8.30 (>14) LAT E' 13.70 (<10 cm/sec) E/LAT E' Ratio 5.45 (>14) Mitral Valve MV A Velocity 53.00 (40-130 cm/s) E/A Ratio 1.41 MV Decel. Time 190.00 (160-240 ms) Left Ventricle Left atrium is normal size, left ventricle is normal size, there is no concentric left ventricular hypertrophy, visually estimated ejection fraction 55% with no regional wall motion abnormality, diastolic parameters are within normal range. Right Ventricle Right atrium and right ventricle are normal size and contractility. Atria Intra-atrial septum is intact, there is no flow across the interatrial septum. Aortic Valve Aortic valve is minimally thickened and fibrosed, there is no aortic stenosis or aortic insufficiency. Mitral Valve Mitral valve grossly normal, there is no mitral stenosis, there is mild mitral regurgitation. Tricuspid Valve Tricuspid grossly normal, there is mild tricuspid regurgitation, tricuspid regurgitation jet velocity is inadequate for calculation of the right ventricular systolic pressure. Pulmonic Valve Pulmonic valve is poorly visualized. Great Vessels Aortic root is normal size. Inferior vena cava is normal size with normal inspiratory collapse. Pericardium No significant pericardial effusion noted. Conclusion 1. Normal left ventricular size, preserved left ventricular systolic function, visually estimated ejection fraction 55% with no regional wall motion abnormality, diastolic parameters are within normal range. 2. Mild mitral and tricuspid regurgitation. 3. Mobile interatrial septum without any obvious flow across it. 4. Inferior vena cava is normal size with normal inspiratory collapse, no significant pericardial effusion noted. Electronically signed by : Reece Steven, 09/25/2020 08:40:06
== END ==
PROVIDERS: PCP Internal Medicine; Visit Provider Urology
DX: R55 Syncope and collapse (principal)
CPT/HCPCS: 93306

== ENCOUNTER 2020-11-03 10:49 | Emergency (ER) | payer BC, SELFPAY ==
[2020-11-03] VITALS (10 sets, daily range): BP systolic 122–155; BP diastolic 74–91; PULSE 64–87; RESP 15–20; TEMP 36.6–37; O2SAT 94–98; BMI 28.3
--- NOTE | 2020-11-03 10:46 | ECG_ITS ---
APPROVED REPORT Exam: Resting ECG HR:84 bpm ECG Measurements Heart Rate 84 AXES [place] 138 P 45 QRSd 76 QRS -11 QT 366 T 17 QTc 432 Conclusion Normal sinus rhythm Minimal voltage criteria for LVH, may be normal variant Borderline ECG Electronically signed by : Monroe Turner MD 11/03/2020 18:53:24
--- NOTE | 2020-11-03 10:50 | HMH.EDGENADL ---
ED Disposition Clinical Impression: Hyperglycemia Chest pain Qualifiers: Chest pain type: unspecified Qualified Code(s): R07.9 - Chest pain, unspecified Disposition: Home, Self-Care Condition on Discharge: Good Instructions: DI for Atypical Chest Pain Additional Instructions: Take medications as directed. Monitor your blood sugar and obtain better control. PCP on Friday. Return emergency department chest pain, shortness of breath, fever. Referrals: Duke Esquivel [Primary Care Provider] - 11/06/20 Forms: Work/School Release Time of Disposition: 14:38 - Critical Care Critical Care Time: No Attestation: On , the high probability of a clinically significant, sudden or life threatening deterioration of the following system(s) required my full and direct attention, intervention and personal management. The time I documented below is in addition to time spent performing reported procedures but includes the following listed in this critical care notation. Medical Decision Making - Medical Records Medical records reviewed: Yes: I reviewed the patient's medical records. - Ariel Inquiry Pt receiving controlled substance: No Vital Signs: 11/03/20 10:49 Temperature 98.6 F Temperature Source Oral Pulse Rate [Radial] 87 Respiratory Rate 16 Blood Pressure [Right Arm] 155/91 H Blood Pressure Mean [Right Arm] 112 02 Sat by Pulse Oximetry 98 Oxygen Delivery Method Room Air - Lab Data Lab results reviewed: Yes: I reviewed the patient's lab results. Lab Results 11/03/20 10:50: WBC 7.1, RBC 4.93, Hgb 14.9, Hct 44.8, MCV 90.8, MCH 30.2, MCHC 33.2, RDW 13.1, Plt Count 226, MPV 9.8, Neut % (Auto) 52.2, Lymph % (Auto) 42.2, Snyder % (Auto) 3.1, Eos % (Auto) 1.6, Baso % (Auto) 0.9, Neut # (Auto) 3.7, Lymph # (Auto) 3.0, Snyder # (Auto) 0.2, Eos # (Auto) 0.1, Baso # (Auto) 0.1 11/03/20 10:50: Sodium 135 L, Potassium 4.2, Chloride 101, Carbon Dioxide 26, Anion Gap 12.2, BUN 16, Creatinine 0.60, Estimated Creat Clear 118, Estimated GFR 105, Est GFR ( Amer) 127, Glucose 521 H*, Calcium 9.3, Total Bilirubin 0.6, AST 36, ALT 36, Alkaline Phosphatase 225 H, Troponin I < 0.01, Total Protein 6.9, Albumin 4.0, Globulin 2.9, Albumin/Globulin Ratio 1.4 11/03/20 13:07: POC Glucose 327 H* 11/03/20 13:10: Troponin I < 0.01 Result diagrams: 11/03/20 10:50 11/03/20 10:50 Orders (Tests/Meds): ED MEDICATIONS Discontinued Medications Generic Name Dose Route Start Last Admin Trade Name Freq PRN Reason Stop Dose Admin Aspirin 324 mg 11/03/20 10:50 11/03/20 11:06 Aspirin 81mg Chewable Tablet PO 11/03/20 10:51 324 mg ONCE ONE Administration Lactated Ringer's 1,000 mls @ 999 mls/hr 11/03/20 12:00 11/03/20 12:03 Lactated Ringer's 1000 Ml Bag IV 11/03/20 13:00 999 mls/hr .Q1H1M BARNEY Administration Insulin Human Regular 12 unit 11/03/20 11:49 11/03/20 12:01 Insulin Human Regular 100 Units/Ml 10ml Vial SQ 11/03/20 11:50 12 unit ONCE ONE Administration ORDERS Category Date Time Status Troponin I Q3H Lab 11/03/20 17:00 Ordered - ECG Data Tracing #1 I reviewed this ECG and interpreted as documented below: 84 beats per minute, normal sinus rhythm, no ST elevation or depression, no ectopy, normal intervals. ECG initial impression date: 11/03/20 ECG initial impression time: 10:50 - JACKY Score for Non-Stemi Age of Patient: 50-59 years old Heart Rate: 70-89 bpm Systolic Blood Pressure: 140-159 mmHg Serum Creatinine: 0.40-0.79 mg/dl CHF Killip Class: I-No CHF Other Risk Factors: None Non-Stemi Risk Score: 78 Medical Decision Narrative: 50yo F evaluated for chest pain. Patient is in no acute distress on initial evaluation. Routine cardiac work-up is been initiated. Differential diagnosis includes was not limited to: ACS/NV, PE, pneumonia, pneumothorax, anxiety, GERD, gallbladder disease. Physical exam is unremarkable. EKG is benign as above. Laboratory studies, chest x-
[2020-11-03 11:05] LABS: Basophils # 0.1 K/mm3 (0-0.2); Basophils % 0.9 % (0.1-2.0); Eosinophils # 0.1 K/mm3 (0.0-0.4); Eosinophils % 1.6 % (0.1-12.0); Hematocrit 44.8 % (37.0-47.0); Hemoglobin 14.9 g/dL (12.2-16.2); Lymphocytes % 42.2 % (10-50); Mean Corpuscular HGB Conc 33.2 g/dL (31.8-35.4); Mean Corpuscular Hemoglobin 30.2 pg (27.0-31.2); Mean Corpuscular Volume 90.8 fl (81-99); Mean Platelet Volume 9.8 fl (7.4-10.4); Monocytes # 0.2 K/mm3 (0.1-1.0); Monocytes % 3.1 % (1.7-9.3); Neutrophils # 3.7 K/mm3 (1.8-7.8); Neutrophils % 52.2 % (37.0-80.0); Platelet Count 226 K/mm3 (142-424); Red Blood Count 4.93 M/mm3 (4.20-5.40); Red Cell Distribution Width 13.1 % (11.5-17.5); White Blood Count 7.1 K/mm3 (4.8-10.8)
[2020-11-03 11:08] LABS: Chloride 101 mmol/L (98-107); Potassium 4.2 mmoL/L (3.5-5.1); Sodium 135 mmol/L (136-145)
[2020-11-03 11:10] LABS: Blood Urea Nitrogen 16 mg/dl (7-17); Creatinine Clearance Estimated 118 mL/min (50-200); Estimated Glomerular Filt Rate 105 ml/min (>60); GFR (African American) 127 ML/MIN (>60)
[2020-11-03 11:11] LABS: Alanine Aminotransferase 36 U/L (12-78); Albumin/Globulin Ratio 1.4 (1.1-1.8); Alkaline Phosphatase 225 U/L (38-126); Anion Gap 12.2 mEq/L (5-15); Aspartate Amino Transferase 36 U/L (14-36); Bilirubin,Total 0.6 mg/dl (0.2-1.3); Calcium 9.3 mg/dl (8.4-10.2); Carbon Dioxide 26 mmol/L (22.0-30.0); Globulin 2.9 g/dL (1.3-3.2); Total Protein,Serum 6.9 g/dl (6.3-8.2)
--- NOTE | 2020-11-03 11:13 | XR_ITS ---
PROCEDURE: XR CHEST PORTABLE CLINICAL HISTORY: cp Chest pain COMPARISON: CR CXR1VP XR chest portable from 01/15/2018 CR XR CHEST 2V from 02/09/[address] ANGIO CHEST from 03/17/2019 DX XR CHEST 2V from 03/17/2019 FINDINGS: Unremarkable cardiovascular structures. The lungs are clear without infiltrates, suspicious nodules, or pleural effusions. No acute bony abnormalities. IMPRESSION: No acute findings. Dictated by: Simón Muñoz MD 11/03/2020 11:20 Simón Muñoz MD in [place] 11/03/2020 11:20
--- NOTE | 2020-11-03 11:13 | PC.NURSE ---
Critical glucose called to Sergio Garcia RN
[2020-11-03 11:14] LABS: Glucose 521 mg/dl (74-100)
[2020-11-03 11:25] LABS: Troponin I < 0.01 ng/ml (0.00-0.034)
[2020-11-03 13:18] LABS: POC Glucose,Bedside 327 (70-110)
[2020-11-03 13:53] LABS: Troponin I < 0.01 ng/ml (0.00-0.034)
[2020-11-03 15:00] LABS: POC Glucose,Bedside 239 (70-110)
== END 2020-11-03 16:22 | disposition home or self-care (01) ==
PROVIDERS: Emergency Provider Family Medicine; PCP Internal Medicine
DX: R07.9 Chest pain, unspecified (principal); E11.65 Type 2 diabetes mellitus with hyperglycemia; I10 Essential (primary) hypertension; E78.5 Hyperlipidemia, unspecified; F33.1 Major depressive disorder, recurrent, moderate; Z79.899 Other long term (current) drug therapy
CPT/HCPCS: 36415; 71045; 80053; 82962; 84484; 85025; 93005; 96365; 99283

== ENCOUNTER → 2023-01-07 09:40 | Outpatient (CLI) | payer BC, SELFPAY ==
--- NOTE | 2023-01-07 09:43 | XR_ITS ---
FINAL REPORT CLINICAL HISTORY: foot pain COMPARISON: None FINDINGS: RIGHT FOOT: Three views of the right foot were obtained. There is no acute fracture or dislocation. A hallux valgus deformity is present. There is mild degenerative change in the foot with a small plantar calcaneal spur present as well. There is no soft tissue abnormality. IMPRESSION: No acute bony abnormality. Hallux valgus deformity, small plantar calcaneal spur. Reviewed, Interpreted and Dictated by Nehemias Merritt III, MD Transcribed by Ann-Marie Solis Authenticated and [facility]
== END ==
PROVIDERS: PCP Internal Medicine; Visit Provider Podiatrist
DX: M79.671 Pain in right foot (principal)
CPT/HCPCS: 73630

== ENCOUNTER 2023-01-08 08:00 | Outpatient (RCR) | payer BC, SELFPAY | END 2023-01-08 08:05 | disposition home or self-care (01) | LOC: PT 08:00 | PROVIDERS: PCP Internal Medicine; Visit Provider Physician Assistant | DX: M47.816 Spondylosis without myelopathy or radiculopathy, lumbar region (principal) | CPT/HCPCS: 97010; 97014; 97035; 97110; 97163; 97164; G0283 ==

== ENCOUNTER → 2023-01-17 08:09 | Outpatient (CLI) | payer BC, SELFPAY ==
[2023-01-17 09:05] LABS: Basophils # 0.1 K/mm3 (0-0.2); Basophils % 0.8 % (0.1-2.0); Eosinophils # 0.2 K/mm3 (0.0-0.4); Eosinophils % 2.6 % (0.1-12.0); Hematocrit 43.5 % (37.0-47.0); Hemoglobin 15.6 g/dL (12.2-16.2); Lymphocytes # 3.4 K/mm3 (0.7-4.5); Lymphocytes % 50.9 % (10-50); Mean Corpuscular HGB Conc 35.9 g/dL (31.8-35.4); Mean Corpuscular Hemoglobin 32.4 pg (27.0-31.2); Mean Corpuscular Volume 90.3 fl (81-99); Mean Platelet Volume 9.7 fl (7.4-10.4); Monocytes # 0.2 K/mm3 (0.1-1.0); Monocytes % 3.6 % (1.7-9.3); Neutrophils # 2.8 K/mm3 (1.8-7.8); Platelet Count 189 K/mm3 (142-424); Red Blood Count 4.81 M/mm3 (4.20-5.40); White Blood Count 6.6 K/mm3 (4.8-10.8)
[2023-01-17 09:06] LABS: MANUAL DIFFERENTIAL MANUAL DIFFERENTIAL (MANUAL DIFF)
[2023-01-17 09:33] LABS: Alanine Aminotransferase 23 U/L (12-78); Albumin Level 3.9 g/dl (3.5-5.0); Albumin/Globulin Ratio 1.4 (1.1-1.8); Alkaline Phosphatase 160 U/L (38-126); Anion Gap 11.9 mEq/L (5-15); Aspartate Amino Transferase 27 U/L (14-36); Bilirubin,Total 0.8 mg/dl (0.2-1.3); Blood Urea Nitrogen 14 mg/dl (7-17); Calcium 8.6 mg/dl (8.4-10.2); Carbon Dioxide 28 mmol/L (22.0-30.0); Chloride 101 mmol/L (98-107); Chol/HDL Ratio 3.5 (1-3.5); Cholesterol 176 mg/dl (140-200); Estimated Glomerular Filt Rate 104 ml/min (>60); GFR (African American) 126 ML/MIN (>60); Globulin 2.8 g/dL (1.3-3.2); Glucose 173 mg/dl (74-100); HDL Cholesterol 51 mg/dl (40-60); Potassium 3.9 mmoL/L (3.5-5.1); Sodium 137 mmol/L (136-145); Total Protein,Serum 6.7 g/dl (6.3-8.2); Triglycerides 115 mg/dl (30-150); VLDL Cholesterol 23 mg/dL (0-40)
[2023-01-17 09:44] LABS: Direct LDL Cholesterol 106.01 mg/dL (100-129)
[2023-01-17 09:48] LABS: 25-OH Vitamin D, Total 19.3 ng/mL (30-100)
[2023-01-17 09:50] LABS: Free T4 (Free Thyroxine) 1.09 ng/dl (0.78-2.19)
[2023-01-17 10:02] LABS: Thyroid Stimulating Hormone 1.38 uIU/mL (0.465-4.68)
[2023-01-17 10:12] LABS: Eosinophils % 1 % (0-3); Lymphocytes % 55 % (10-50); Monocytes % 9 % (2-9); Neutrophils % 35 % (42-76); Platelet Estimate Normal; RBC Morphology Normal; Total Cells Counted 100
[2023-01-17 12:53] LABS: Creatinine,Urine Random 77 mg/dL (Not Estab.)
[2023-01-17 14:43] LABS: Hemoglobin A1C 9.2 % (4.0-6.0)
== END ==
PROVIDERS: PCP Internal Medicine; Visit Provider Internal Medicine
DX: Z00.00 Encounter for general adult medical examination without abnormal findings (principal); Z13.220 Encounter for screening for lipoid disorders; Z13.29 Encounter for screening for other suspected endocrine disorder; Z13.1 Encounter for screening for diabetes mellitus; E11.9 Type 2 diabetes mellitus without complications; Z13.21 Encounter for screening for nutritional disorder; Z79.4 Long term (current) use of insulin; E55.9 Vitamin D deficiency, unspecified; Z79.899 Other long term (current) drug therapy
CPT/HCPCS: 36415; 80053; 80061; 82043; 82306; 82570; 83036; 84439; 84443; 85007; 85025

== ENCOUNTER 2023-03-13 08:04 | Outpatient (CLI) | payer BC, SELFPAY ==
[2023-03-13 08:20] LABS: Basophils # 0.1 K/mm3 (0-0.2); Basophils % 1.1 % (0.1-2.0); Eosinophils # 0.2 K/mm3 (0.0-0.4); Eosinophils % 1.9 % (0.1-12.0); Hemoglobin 16.4 g/dL (12.2-16.2); Lymphocytes # 4.3 K/mm3 (0.7-4.5); Lymphocytes % 48.2 % (10-50); Mean Corpuscular HGB Conc 33.6 g/dL (31.8-35.4); Mean Corpuscular Hemoglobin 30.6 pg (27.0-31.2); Mean Corpuscular Volume 91.1 fl (81-99); Mean Platelet Volume 9.5 fl (7.4-10.4); Monocytes # 0.3 K/mm3 (0.1-1.0); Monocytes % 3.7 % (1.7-9.3); Neutrophils % 45.1 % (37.0-80.0); Platelet Count 217 K/mm3 (142-424); Red Blood Count 5.38 M/mm3 (4.20-5.40); Red Cell Distribution Width 13.2 % (11.5-17.5); White Blood Count 8.8 K/mm3 (4.8-10.8)
--- NOTE | 2023-03-13 08:21 | XR_ITS ---
FINAL REPORT CLINICAL HISTORY: Foot Pain COMPARISON: None FINDINGS: LEFT FOOT: Three views of the left foot were obtained. There is no acute fracture or dislocation. The joint spaces are intact. There is no soft tissue abnormality. There is a mild hallux valgus deformity of the first MTP joint. A tiny plantar calcaneal spur is present. IMPRESSION: No acute bony abnormality. Mild hallux valgus deformity of the first MTP joint. Reviewed, Interpreted and Dictated by Nehemias Merritt III, MD Transcribed by Ann-Marie Solis Authenticated and [facility]
--- NOTE | 2023-03-13 08:21 | XR_ITS ---
FINAL REPORT CLINICAL HISTORY: Pre-operative Testing for right bunion repair. Non smoker. COMPARISON: 11/03/2020 FINDINGS: Two views of the chest were obtained. The heart size and pulmonary vascularity are within normal limits. The mediastinum is normal. No acute pulmonary abnormality is identified. There is no pneumothorax. The bony thorax is intact. IMPRESSION: No active cardiopulmonary disease. Reviewed, Interpreted and Dictated by Nehemias Merritt III, MD Transcribed by Ann-Marie Solis Authenticated and . [facility]
--- NOTE | 2023-03-13 08:21 | XR_ITS ---
FINAL REPORT CLINICAL HISTORY: Foot Pain COMPARISON: 01/07/2023 FINDINGS: RIGHT FOOT: Three views of the right foot were obtained. There is no acute fracture or dislocation. The joint spaces are intact. A hallux valgus deformity is present at the first MTP joint. There is a tiny plantar calcaneal spur present. There is no soft tissue abnormality. IMPRESSION: No acute bony abnormality. Hallux valgus deformity first MTP joint. Reviewed, Interpreted and Dictated by Nehemias Merritt III, MD Transcribed by Ann-Marie Solis Authenticated and [facility]
[2023-03-13 10:09] LABS: Albumin Level 4.2 g/dl (3.5-5.0); Albumin/Globulin Ratio 1.4 (1.1-1.8); Alkaline Phosphatase 232 U/L (38-126); Bilirubin,Total 0.9 mg/dl (0.2-1.3); Calcium 8.6 mg/dl (8.4-10.2); Globulin 2.9 g/dL (1.3-3.2); Glucose 141 mg/dl (74-100); Potassium 3.7 mmoL/L (3.5-5.1); Sodium 139 mmol/L (136-145); Total Protein,Serum 7.1 g/dl (6.3-8.2)
[2023-03-13 10:10] LABS: Alanine Aminotransferase 32 U/L (12-78); Anion Gap 11.7 mEq/L (5-15); Aspartate Amino Transferase 50 U/L (14-36); Blood Urea Nitrogen 11 mg/dl (7-17); Carbon Dioxide 25 mmol/L (22.0-30.0); Chloride 106 mmol/L (98-107); Estimated Glomerular Filt Rate 104 ml/min (>60); GFR (African American) 126 ML/MIN (>60)
== END 2023-03-13 23:59 ==
LOC: LAB 08:05
PROVIDERS: Podiatrist; PCP Internal Medicine; Visit Provider Internal Medicine
DX: Z01.818 Encounter for other preprocedural examination (principal); R60.0 Localized edema; M79.672 Pain in left foot; M79.671 Pain in right foot
CPT/HCPCS: 36415; 71046; 73630; 80053; 85025

== ENCOUNTER 2023-04-18 05:54 | Day surgery (SDC) | payer BC, SELFPAY ==
[2023-04-15 17:07] VITALS: BMI 29.2
[2023-04-18] VITALS (9 sets, daily range): BP systolic 123–161; BP diastolic 76–96; PULSE 90–103; RESP 16–19; TEMP 35.9–36.7; O2SAT 92–97
[2023-04-18] MEDS: LACTATED RINGERS 1000ML 1,000 ML 25 ML IV (06:42)
--- NOTE | 2023-04-18 06:46 | ECG_ITS ---
APPROVED REPORT Exam: Resting ECG HR:91 bpm ECG Measurements Heart Rate 91 AXES SC 151 P 49 QRSd 75 QRS -20 QT 340 T -9 QTc 389 Conclusion SINUS RHYTHM WITH OCCASIONAL VENTRICULAR PREMATURE COMPLEXES LOW QRS VOLTAGE IN PRECORDIAL LEADS [QRS DEFLECTION < 1.0 mV IN CHEST LEADS] MINIMAL VOLTAGE CRITERIA FOR LVH, CONSIDER NORMAL VARIANT [MEETS CRITERIA IN ONE OF: R(aVL), S(V1), R(V5), R(V5/V6)+S(V1)] BORDERLINE ECG UNCONFIRMED REPORT Electronically signed by : Monroe Turner MD 04/19/2023 06:33:45
[2023-04-18 06:58] LABS: POC Glucose,Bedside 280 (70-110)
--- NOTE | 2023-04-18 07:54 | SUR.OPER ---
preop antibiotics not ordered on order sheet. Dr Mariscal verbal ordered 2 g ancef STAT. Verbal order read back and Dr Mariscal in agreement. Pulled and given by Zuly Trujillo INFUSION NURSE before procedure start.
--- NOTE | 2023-04-18 08:00 | EXP.ANES.CKL ---
[facility] Disclaimer: The information contained in this section may have been updated after the patient was seen, as this information can be updated by other users. Medical History Abnormal EKG Back pain Depression Diabetes mellitus Diabetic neuropathy Dyspnea Family history of heart disease Hypertension Leg length discrepancy Lumbar radiculopathy Sinus tachycardia Surgical History Hx of bilateral hip replacements Hx of colonoscopy Hx of hysterectomy Family History Mother Diabetes Heart attack Father Diabetes Sister Coronary artery disease Brother Diabetes Heart attack Stroke Social History (Updated 04/18/23 @ 06:41 by Lashonda Simpson RN) Smoking Status: Former smoker alcohol intake: never counseling provided: none substance use type: denies use current occupational status: unemployed Travel in the last 8 weeks: None household members: spouse and children housing: house current occupational exposures/hazards: No caffeine: Yes [facility] Anesthesia Checklist Patient Identification Patient Identification: Verbal (Name & ) Structural Data Admitted From: Home Planned Operative Procedure/s: bunionectomy Consent for Planned Operative Procedure(s) Verified: Yes NPO Status Verified Time NPO: 00:00 Additional verifications Anesthesia Reactions: No Hx Blood Transfusions: No Blood Transfusion Reaction: No Airway Assessment Mallampati Score:: Class II C-Spine Mobility Assessed: Yes TMJ Mobility Assessed: Yes Dentition: Good Dentition Neurological Assessment Level of Consciousness: Awake, Alert and Appropriate Anesthesia Plan Anesthesia Risk discussed: Yes Anesthesia Plan: Verified ASA Class: II Anesthesia Type: General Preoperative Comments Pre-Operative Comments: exp pop block to pt pt agrees to proceed
--- NOTE | 2023-04-18 09:03 | P.PNANES_ITS ---
[facility] Anesthesia Record Part I Anesthesia Record I Intake, IV Amount: 1,700 Hydration: Adequate Estimated blood loss (mL): 10 Urine output (mL): 0 Blood Products used (#): none Blood Pressure: 135/76 SaO2: 95 Pulse Rate: 101 Airway Patency: Patent Respiratory Rate: 16 Temperature: 96.6 F Patient is:: Drowsy and Stable Stable to PACU at:: 09:04
[2023-04-18] MEDS: MORPHINE 2MG/ML SYRINGE 2 MG IV (09:12)
[2023-04-18 09:19] LABS: POC Glucose,Bedside 276 (70-110)
--- NOTE | 2023-04-18 09:28 | SUR.PHASEI ---
Pt urinated 200mL of dark, foul smelling urine
--- NOTE | 2023-04-18 09:36 | XR_ITS ---
FINAL REPORT CLINICAL HISTORY: post op from bunionectomy COMPARISON: 04/06/2019 FINDINGS: Right ankle Three views were obtained. There is no acute fracture or dislocation. The joint spaces appear normal. There are postoperative changes of the midfoot. A splint is present. IMPRESSION: Postoperative changes. Reviewed, Interpreted and Dictated by Nehemias Merritt III, MD Transcribed by Maya Angeles Authenticated and [facility]
--- NOTE | 2023-04-18 09:56 | EXP.OP.NOTE ---
Date of procedure: 04/18/23 Pre-op Diagnosis:: Right foot hallux valgus deformity and pain Post-op Diagnosis:: Same Procedure performed:: Lapidus fusion/bunionectomy right foot Surgeon:: Floyd Mariscal DPM Pharmaceutical Scientist(s):: none MECHANICAL PENCILS ASSEMBLER:: Other Anesthesia: GETA and other (popliteal) Estimated blood loss (mL): 6 Operative findings:: expected findings Operative note:: Patient was seen in the preop holding area. Discussion with the patient to confirm the planned procedure was performed and this foot was signed. All questions were answered to the patient's satisfaction. Her family is present; and patient has a knee scooter at home. Patient was then evaluated by anesthesia department. Patient was wheeled to the operative room and placed on the operating table in the supine position. The operative site was clearly marked and then prepped and draped in the usual aseptic manner. Timeout was performed in the room and we confirmed the planned procedure and the patient and we all were in agreement. The attention was directed to the patient's surgical foot and Esmarch bandage used to extended patient's foot and ankle and the tourniquet inflated to 250 mils mercury about the malleoli. A dorsal linear longitudinal incision was made from the metatarsal cuneiform joint following and medial with the extensor hallucis longus tendon to the dorsal aspect of the proximal hallux. Incision was deepened to subcutaneous tissues being careful to preserve protect vital neurovascular structures and bleeders cauterized with the Bovie as necessary. Attention was directed to the first metatarsal phalangeal joint where a dorsal linear longitudinal capsulotomy was made medial and parallel with the extensor hallucis longus tendon. The medial eminence and dorsal head of the first metatarsal were remodeled with sagittal bone saw. At this point blunt and sharp dissection was carried down to the first interspace and the fibular sesamoid was freed of soft tissue attachments and performed a lateral capsulotomy. There was good range of motion noted at the first MPJ at this level. Attention now was directed to the metatarsal cuneiform joint which was dissected down to the joint capsule and freed of soft tissue attachments. Sagittal bone saw was used to resect portion of the metatarsal cunifeiform joint carlitage and bone in the multiple planes. At this point the base of the metatarsal and the cuneiform were placed in proximity to each other with bleeding sides in a corrected position and fixation was accomplished using a cannulated screw and a staple. Used V92 bone Matrix to facilitate fusion site healing, inserted into joint before hardware closed down completely. There is good alignment noted for the entire correction of the procedure and it was deemed to be appropriate for closure so irrigated the wound with copious amount of sterile normal saline and then closed in layers with 2-0 Vicryl 3-0 Vicryl and 3-0 nylon. Released tourniquet. Prompt hyperemic response noted to all digits right foot. Applied postop dressings: dressed the surgical wounds with Xeroform.. Then applied gauze and 4 x 4's Softroll. Decision was to apply a well-padded posterior splint using Stockinette, Cast padding, 4 Orthoblast, and outer 6 elastic bandage, holding the foot at 90 degrees. Stay NWB 4-6 weeks. Keep dressings clean, dry, intact. Tourniquet time (min): 60 Condition: stable Disposition: PACU Specimens:: none Complications:: negative
--- NOTE | 2023-04-21 13:54 | EXP.ANES.II ---
[facility] Anesthesia Record Part II Anesthesia Record Part II Discharge Time: 09:29 Destination: Surgical Day Care (OP Surgery) PACU nurse assessment reviewed?: Yes Patient Condition:: Good Anesthesia Complications:: None Swallowing reflex intact?: Yes Airway Patency: Patent Cyanosis?: No Blood Pressure: 152/96 SaO2: 94 Respiratory Rate: 19 Pulse Rate: 103 Temperature: 97.2 F Mental Status: Alert & Oriented Pain level:: 0 Nausea and/or vomitting:: None Intake, IV Amount: 0 Hydration: Adequate
[2023-04-21 13:56] VITALS: BP 152/96; PULSE 103; RESP 19; TEMP 36.2; O2SAT 94
== END 2023-04-18 10:17 | disposition home or self-care (01) ==
PROVIDERS: PCP Internal Medicine; Visit Provider Podiatrist
PROC: (CPT 28297; principal; 2023-04-18 07:30)
DX: M20.11 Hallux valgus (acquired), right foot (principal); M25.571 Pain in right ankle and joints of right foot; M79.671 Pain in right foot; E11.9 Type 2 diabetes mellitus without complications; Z79.4 Long term (current) use of insulin; I10 Essential (primary) hypertension; Z79.899 Other long term (current) drug therapy; Z87.891 Personal history of nicotine dependence
CPT/HCPCS: 28297; 73610; 82962; 93005; C1713; J2405

== ENCOUNTER 2023-04-20 14:25 | Emergency (ER) | payer BC, SELFPAY ==
[2023-04-20 14:27] VITALS: BP 169/97; PULSE 81; RESP 16; TEMP 36.6; O2SAT 96; BMI 29.2
--- NOTE | 2023-04-20 15:00 | PC.NURSE ---
Right foot unwrapped and dressing removed for physician to assess. Patient reports immediate relief with removal of dressing. Wound looks healthy, no erythema or purulent drainage noted. Scant amount of serosanguineos fluid present. Wound cleaned with saline, and Vaseline gauze placed over sutures, along with sterile 4x4. Webroll wrapped around foot, cast replaced, and damien bandage placed. Patient tolerated well, denies pain at present or any discomfot.
--- NOTE | 2023-04-20 15:07 | PC.NURSE ---
DR PUGH AT BEDSIDE
--- NOTE | 2023-04-20 15:07 | PC.NURSE ---
Dr. Mckinney at BS for pt eval
--- NOTE | 2023-04-20 15:08 | HMH.EDGENADL ---
Discharge Plan Disposition Patient Disposition: Home, Self-Care Prescriptions Prescriptions: No Action lisinopril 10 mg tablet 10 mg PO DAILY insulin degludec [Tresiba FlexTouch U-200] 200 unit/mL (3 mL) insulin pen 46 unit SQ DAILY Patient Comments: INJECT 46 UNITS UNDER THE SKIN INTO THE APPROPRIATE AREA DIRECTED DAILY insulin lispro 100 unit/mL insulin pen 8 unit SQ BID Patient Comments: INJECT 8 UNITS UNDER THE SKIN INTO THE APPROPRIATE AREA DIRECTED 3 TIMES A DAY. PLUS 1:50>150, MAX DAILY DOSE OF 30 UNITS. duloxetine 30 mg capsule,delayed release(DR/EC) 30 mg PO BID Qty: 60 2RF Mounjaro 2.5 mg/0.5 mL pen injector 2.5 mg SQ WEEKLY 28 Days Qty: 2 0RF amitriptyline 50 mg tablet 50 mg PO HS atorvastatin 20 mg tablet 20 mg PO HS cholecalciferol (vitamin D3) [Vitamin D3] 50 mcg (2,000 unit) capsule 2,000 unit PO DAILY pantoprazole [Protonix] [address] for susp in packet 40 mg PO DAILY insulin degludec [Tresiba FlexTouch U-100] 100 unit/mL (3 mL) insulin pen 40 unit SQ HS (DME) pen needle, diabetic [BD Ultra-Fine Mini Pen Needle] 31 gauge x 3/16 needle See Rx Instructions .ROUTE .MEDSUPPLY Qty: 1200 0RF Rx Instructions: As directed empagliflozin 25 mg tablet 25 mg PO DAILY Qty: 30 2RF (DME) Dexcom G6 Sensor Device See Rx Instructions .ROUTE .MEDSUPPLY Qty: 3 3RF Rx Instructions: As directed (DME) Dexcom G6 Transmitter Device See Rx Instructions .ROUTE .MEDSUPPLY Qty: 1 6RF Rx Instructions: As directed promethazine 12.5 mg tablet 12.5 mg PO TID Qty: 14 0RF oxycodone-acetaminophen [Percocet] 7.5-325 mg tablet 1 tab PO Q6H MDD 4 pills PRN (Reason: pain) Qty: 20 0RF doxycycline hyclate 100 mg capsule 100 mg PO BID Qty: 14 0RF ibuprofen 800 mg tablet 800 mg PO Q8H Qty: 90 0RF Referrals Follow up/Referrals: Duke Sebastian DO [Primary Care Provider] - See instructions Clinical Impressions Clinical Impression: Ankle pain, Post-op pain Discharge ED Provider: Jeffery Mckinney General Adult HPI General Stated complaint: surgery 04/18 right foot, pain in top of foot Time Seen by Provider: 04/20/23 15:03 History of Present Illness HPI narrative: Patient is a 52-year-old female with past medical history of recent right foot surgery who presents emergency department for pain around the dorsal aspect of her ankle. Patient had surgery on her right great toe without complication, was placed in posterior short splint and subsequently discharged home. She has had a pinching sensation over her dorsal ankle joint causing her to present here for continued evaluation. No other acute complaints at this time Related Data Home Medications Medication Instructions Recorded Confirmed lisinopril 10 mg tablet 10 mg PO DAILY 08/28/20 04/18/23 amitriptyline 50 mg tablet 50 mg PO HS 02/19/23 04/18/23 atorvastatin 20 mg tablet 20 mg PO HS 02/19/23 04/18/23 insulin degludec 200 unit/mL (3 46 unit SQ DAILY 02/19/23 04/18/23 mL) subcutaneous pen (Tresiba FlexTouch U-200 insulin) insulin lispro 100 unit/mL 8 unit SQ BID 02/19/23 04/18/23 subcutaneous pen cholecalciferol (vitamin D3) 50 2,000 unit PO DAILY 03/20/23 04/18/23 mcg (2,000 unit) capsule (Vitamin D3) insulin degludec 100 unit/mL (3 40 unit SQ HS 03/20/23 04/18/23 mL) subcutaneous pen (Tresiba FlexTouch U-100 insulin) pantoprazole 40 mg granules 40 mg PO DAILY 03/20/23 04/18/23 delayed-release for susp in packet (Protonix) Previous Rx's Medication Instructions Recorded duloxetine 30 mg capsule,delayed 30 mg PO BID #60 caps 02/19/23 release empagliflozin 25 mg tablet 25 mg PO DAILY #30 tabs 03/20/23 pen needle, diabetic 31 gauge x #1,200 ea 03/20/2305/23 (BD Ultra-Fine Mini Pen Needle) blood-glucose sensor (Dexcom G6 #3 ea 03/25/23 Sensor device) blood-glucose transmitter (Dexcom #1 ea 03/25/23 G6 Transmitter device) tirzepatide 2.5 mg/0.5 mL 2.5 mg (0.5 mL) SQ WEEKLY 4 weeks 04/01/23 subcutaneous pen injector #2 mL (Katiuskashaggy) doxycycline hyclate 100 mg capsule 100 mg PO BID #14 caps 04/18/23 ibuprofen 800 mg tablet 800 mg PO Q8H #90 tabs 04/18/23 oxycodone-acetaminophen 7.5 mg-325 1 tab PO Q6H PRN pain #20 tabs 04/18/23 mg tablet (Percocet) promethazine 12.5 mg tablet 12.5 mg PO TID #14 tabs 04/18/23 Allergies Allergy/AdvReac Type Severity Reaction Status Date / Time No Known Allergies Allergy Verified 04/18/23 06:21 [facility] Disclaimer: The information contained in this section may have been updated after the patient was seen, as this information can be updated by other users. Medical History Abnormal EKG Back pain Depression Diabetes mellitus Diabetic neuropathy Dyspnea Family history of heart disease Hypertension Leg length discrepancy Lumbar radiculopathy Sinus tachycardia Surgical History Hx of bilateral hip replacements Hx of colonoscopy Hx of hysterectomy Family History Mother Diabetes Heart attack Father Diabetes Sister Coronary artery disease Brother Diabetes Heart attack Stroke Social History (Updated 04/18/23 @ 06:41 by Lashonda Simpson RN) Smoking Status: Former smoker alcohol intake: never counseling provided: none substance use type: denies use current occupational status: unemployed Travel in the last 8 weeks: None household members: spouse and children housing: house current occupational exposures/hazards: No caffeine: Yes ROS Obtained: Yes Systems reviewed as appropriate & no additional complaints except as documented Physical Exam General General appearance: alert and in no apparent distress Head Head exam: atraumatic and normocephalic Eye Eye exam: Present PERRL and EOMI ENT ENT exam: Present mucous membranes moist Neck Neck exam: Present normal inspection Chest Chest inspection: Present normal inspection and symmetric chest wall rise Respiratory Respiratory exam: Absent respiratory distress Cardiovascular Cardiovascular exam: Present regular rate and normal rhythm Extremities Exam Extremities exam: Present other (Palpable dorsal pedal pulse on the right, erythema and bruising over the right foot, surgical site is well-approximated with running suture, no purulence. Punctate area of bruising over the dorsal aspect of the ankle.) Neurological Exam Neurological exam: Present alert Psychiatric Psychiatric exam: Present normal affect Skin Skin exam: Present warm and dry Medical Decision Making Ariel Inquiry Pt receiving controlled substance: No Medical Decision Narrative: In summary patient is a 52-year-old female with past medical history described above presents emergency department for evaluation of dorsal ankle pain in the setting of recent postoperative state. Patient is hemodynamically stable nontoxic-appearing upon arrival. Upon taking down the Webril it appears that patient had pinching from the tightness of the wrap. Patient had resolution of symptoms when wrap was taken down. There is no purulence to suggest infection. Erythema and bruising is consistent with routine postoperative bruising. Given this patient's leg was rewrapped, splint was reapplied and patient is appropriate for discharge at this time will continue to follow-up on an outpatient basis. Critical Care Critical Care Time Critical Care Time: No
[2023-04-20 15:37] VITALS: BP 156/96; PULSE 85; RESP 16; TEMP 36.6; O2SAT 96
== END 2023-04-20 15:43 | disposition home or self-care (01) ==
PROVIDERS: Emergency Provider Emergency Medicine; PCP Internal Medicine
DX: M25.571 Pain in right ankle and joints of right foot (principal); G89.18 Other acute postprocedural pain; E11.40 Type 2 diabetes mellitus with diabetic neuropathy, unspecified; I10 Essential (primary) hypertension; Z87.891 Personal history of nicotine dependence
CPT/HCPCS: 99283

== ENCOUNTER 2023-05-21 15:55 | Outpatient (CLI) | payer BC, SELFPAY | END 2023-05-21 23:59 | LOC: LAB.DROPOF 15:55 | PROVIDERS: PCP Internal Medicine; Visit Provider Internal Medicine | DX: E11.9 Type 2 diabetes mellitus without complications (principal); Z79.4 Long term (current) use of insulin | CPT/HCPCS: 83036 ==

== ENCOUNTER 2023-06-04 07:46 | Outpatient (CLI) | payer BC, SELFPAY ==
--- NOTE | 2023-06-04 07:47 | MM_ITS ---
PROCEDURE INFORMATION: Exam: MG Bilateral Screening 3D Mammography Exam date and time: 06/04/2023 7:38 AM Age: 52 years old Clinical indication: Screening examination TECHNIQUE: Imaging protocol: Bilateral Screening tomosynthesis and 2D mammography including computer-aided detection (CAD) when performed. COMPARISON: 1. MG DIG MAMM-SCREEN KATIE 07/17/2018 9:52 AM 2. MG SCBI MM Dig screening mamm BI w/CAD 06/03/2017 9:03 AM FINDINGS: MAMMOGRAPHY: Breast composition: The breasts are heterogeneously dense, which may obscure small masses. Mass: None. Architectural distortion: None. Calcifications: No suspicious calcifications. Asymmetric density: None. Skin thickening: None. Axillary adenopathy: None. IMPRESSION: No mammographic evidence of malignancy. Annual screening is recommended unless otherwise clinically indicated. ASSESSMENT: BI-RADS Category 1: Negative
== END 2023-06-04 23:59 ==
LOC: RAD 07:47
PROVIDERS: PCP Internal Medicine; Visit Provider Internal Medicine
DX: Z12.31 Encounter for screening mammogram for malignant neoplasm of breast (principal)
CPT/HCPCS: 77063; 77067

== ENCOUNTER 2023-06-06 08:21 | Emergency (ER) | payer BC, SELFPAY ==
[2023-06-06 08:35] VITALS: BP 141/89; PULSE 87; RESP 18; TEMP 36.9; O2SAT 100; BMI 26.9
[2023-06-06 08:48] LABS: Apearance,Urine Clear (Clear); Color,Urine Dark Yellow (Yellow); PH,Urine 5.5 (5.0-8.5)
[2023-06-06 08:49] LABS: Bilirubin,Urine Negative (Negative); Blood, Urine Negative (Negative); Glucose,Urine (UA) Negative (Negative); Ketones,Urine Negative (Negative); Protein,Urine Negative (Negative); UTC Leukocyte Esterase,Urine Negative (Negative); UTC Nitrate,Urine Negative (Negative); Urobilinogen,Urine 0.2 EU/dl (0.2)
--- NOTE | 2023-06-06 08:49 | ED_ITS ---
Discharge Plan Disposition Patient Disposition: Home, Self-Care Condition: Good Prescriptions Prescriptions: New ketorolac 10 mg tablet 10 mg PO Q8H PRN (Reason: pain) Qty: 20 0RF Rx Instructions: IM injection 06/06/23 0915 cyclobenzaprine 10 mg tablet 10 mg PO TID PRN (Reason: muscle spasm) Qty: 30 0RF lidocaine [Lidoderm] 5 % adhesive patch,medicated 1 patch topical DAILY Qty: 30 0RF Rx Instructions: leave on most painful area for up to 12 hrs No Action lisinopril 10 mg tablet 10 mg PO DAILY insulin degludec [Tresiba FlexTouch U-200] 200 unit/mL (3 mL) insulin pen 46 unit SQ DAILY Patient Comments: INJECT 46 UNITS UNDER THE SKIN INTO THE APPROPRIATE AREA DIRECTED DAILY insulin lispro 100 unit/mL insulin pen 8 unit SQ BID Patient Comments: INJECT 8 UNITS UNDER THE SKIN INTO THE APPROPRIATE AREA DIRECTED 3 TIMES A DAY. PLUS 1:50>150, MAX DAILY DOSE OF 30 UNITS. amitriptyline 50 mg tablet 50 mg PO HS atorvastatin 20 mg tablet 20 mg PO HS cholecalciferol (vitamin D3) [Vitamin D3] 50 mcg (2,000 unit) capsule 2,000 unit PO DAILY pantoprazole [Protonix] [address] for susp in packet 40 mg PO DAILY (DME) pen needle, diabetic [BD Ultra-Fine Mini Pen Needle] 31 gauge x 3/16 needle See Rx Instructions .ROUTE .MEDSUPPLY Qty: 1200 0RF Rx Instructions: As directed empagliflozin 25 mg tablet 25 mg PO DAILY Qty: 30 2RF duloxetine 30 mg capsule,delayed release(DR/EC) 30 mg PO DAILY Mounjaro 5 mg/0.5 mL pen injector 5 mg SQ WEEKLY Qty: 2 0RF (DME) Dexcom G6 Sensor Device See Rx Instructions .ROUTE .MEDSUPPLY Qty: 3 3RF Rx Instructions: As directed (DME) Dexcom G6 Transmitter Device See Rx Instructions .ROUTE .MEDSUPPLY Qty: 1 6RF Rx Instructions: As directed Referrals Follow up/Referrals: Duke Sebastian DO [Primary Care Provider] - See instructions Activity Restrictions/Add. Instructions Additional Instructions/Restrictions: Follow up with Dr Sebastian if not improving Clinical Impressions Clinical Impression: Low back pain Instructions Patient Instructions: DI for Low Back Pain Discharge ED Provider: Tiffanie Rasheed [facility] HPI General Stated complaint: lower back pain Time Seen by Provider: 06/06/23 08:49 History of Present Illness Provider Complaint: Low back pain X 10 days or so. No inciting injury or event. Has been in a walking boot, on the couch and doesn't know if she has done something that way. Pain in mid back and radiates outward. Worse with sudden movements such as sneezing. Hurts to go from sitting to standing. No relieving factors. No bowel or bladder incontinence. No radiation down legs. Onset (ago): day(s) (10) Location: back Severity: moderate Severity scale (1-10): 5 Quality: stabbing and sharp Consistency: intermittent Relieving factors: none Exacerbating factors: movement Associated symptoms: denies other symptoms Treatments prior to arrival: none Related Data Home Medications Medication Instructions Recorded Confirmed lisinopril 10 mg tablet 10 mg PO DAILY 08/28/20 05/21/23 amitriptyline 50 mg tablet 50 mg PO HS 02/19/23 05/21/23 atorvastatin 20 mg tablet 20 mg PO HS 02/19/23 05/21/23 insulin degludec 200 unit/mL (3 46 unit SQ DAILY 02/19/23 05/21/23 mL) subcutaneous pen (Tresiba FlexTouch U-200 insulin) insulin lispro 100 unit/mL 8 unit SQ BID 02/19/23 05/21/23 subcutaneous pen cholecalciferol (vitamin D3) 50 2,000 unit PO DAILY 03/20/23 05/21/23 mcg (2,000 unit) capsule (Vitamin D3) pantoprazole 40 mg granules 40 mg PO DAILY 03/20/23 05/21/23 delayed-release for susp in packet (Protonix) duloxetine 30 mg capsule,delayed 30 mg PO DAILY 05/21/23 05/21/23 release Previous Rx's Medication Instructions Recorded empagliflozin 25 mg tablet 25 mg PO DAILY #30 tabs 03/20/23 pen needle, diabetic 31 gauge x #1,200 ea 03/20/2305/23 (BD Ultra-Fine Mini Pen Needle) blood-glucose sensor (Dexcom G6 #3 ea 03/25/23 Sensor device) blood-glucose transmitter (Dexcom #1 ea 03/25/23 G6 Transmitter device) tirzepatide 5 mg/0.5 mL 5 mg (0.5 mL) SQ WEEKLY #2 mL 05/21/23 subcutaneous pen injector (Sparkle) cyclobenzaprine 10 mg tablet 10 mg PO TID PRN muscle spasm #30 06/06/23 tabs ketorolac 10 mg tablet 10 mg PO Q8H PRN pain #20 tabs 06/06/23 lidocaine 5 % topical patch 1 patch topical DAILY #30 ea 06/06/23 (Lidoderm) Allergies Allergy/AdvReac Type Severity Reaction Status Date / Time No Known Allergies Allergy Verified 05/21/23 09:30 [facility] Disclaimer: The information contained in this section may have been updated after the patient was seen, as this information can be updated by other users. Medical History Sinus tachycardia Family history of heart disease Abnormal EKG Dyspnea Hypertension Lumbar radiculopathy Diabetic neuropathy Leg length discrepancy Back pain Depression Diabetes mellitus Surgical History Hx of colonoscopy Hx of hysterectomy Hx of bilateral hip replacements Family History Mother Diabetes Heart attack Father Diabetes Sister Coronary artery disease Brother Diabetes Heart attack Stroke Social History Smoking Status: Never smoker alcohol intake: never counseling provided: none substance use type: denies use current occupational status: unemployed Travel in the last 8 weeks: None household members: spouse and children housing: house current occupational exposures/hazards: No caffeine: Yes ROS Obtained: Yes All systems reviewed & no additional complaints except as documented Musculoskeletal Musculoskeletal: Reports back pain Physical Exam General General appearance: alert and in no apparent distress Head Head exam: atraumatic and normocephalic Chest Chest inspection: Present normal inspection and symmetric chest wall rise Respiratory Respiratory exam: Absent respiratory distress Cardiovascular Cardiovascular exam: Present regular rate and normal rhythm Back Exam Back exam: Present tenderness, muscle spasm and vertebral tenderness Neurological Exam Neurological exam: Present alert Psychiatric Psychiatric exam: Present normal affect Skin Skin exam: Present warm and dry Medical Decision Making Ariel Inquiry Pt receiving controlled substance: No
[2023-06-06 08:56] VITALS: BP 141/89; PULSE 87; RESP 18; TEMP 36.9; O2SAT 100
[2023-06-06] MEDS: KETOROLAC 60MG/2ML VIAL 60 MG IM (09:13)
[2023-06-06] MEDS: methylPREDNISolone ACETATE 80MG/ML VIAL 80 MG IM (09:13)
== END 2023-06-06 09:23 | disposition home or self-care (01) ==
PROVIDERS: Emergency Provider Physician Assistant; PCP Internal Medicine
DX: M54.50 Low back pain, unspecified (principal); I10 Essential (primary) hypertension; E11.40 Type 2 diabetes mellitus with diabetic neuropathy, unspecified; Z79.4 Long term (current) use of insulin; Z79.85 Long-term (current) use of injectable non-insulin antidiabetic drugs
CPT/HCPCS: 81003; 96372; 99204; 99212; G0463; J1040

== ENCOUNTER 2023-09-01 15:24 | Outpatient (CLI) | payer BC, SELFPAY ==
[2023-09-01 17:31] LABS: Microscopic, Urine URINE MICROSCOPIC (MICROSCOPIC)
[2023-09-01 19:00] LABS: Hemoglobin A1C 8.4 % (4.0-6.0)
[2023-09-01 19:07] LABS: Appearance,Urine CLEAR (Clear); Bilirubin,Urine Negative (Negative); Blood, Urine Negative (Negative); Color,Urine YELLOW (Yellow); Glucose,Urine (UA) 2+ (Negative); Ketones,Urine Negative (Negative); Leukocyte Esterase,Urine 1+ (Negative); Nitrate,Urine Negative (Negative); PH,Urine 6.5 (5.0-8.5); Protein,Urine Negative (Negative); Specific Gravity, Urine 1.015 (1.005-1.030)
[2023-09-01 19:35] LABS: Chloride 100 mmol/L (98-107); Potassium 4.3 mmoL/L (3.5-5.1); Sodium 136 mmol/L (136-145)
[2023-09-01 19:38] LABS: Alanine Aminotransferase 33 U/L (12-78); Albumin Level 3.8 g/dl (3.5-5.0); Albumin/Globulin Ratio 1.3 (1.1-1.8); Alkaline Phosphatase 154 U/L (38-126); Anion Gap 10.3 mEq/L (5-15); Aspartate Amino Transferase 29 U/L (14-36); Bilirubin,Total 0.6 mg/dl (0.2-1.3); Blood Urea Nitrogen 23 mg/dl (7-17); Calcium 9.1 mg/dl (8.4-10.2); Carbon Dioxide 30 mmol/L (22.0-30.0); Estimated Glomerular Filt Rate 87 ml/min (>60); GFR (African American) 105 ML/MIN (>60); Globulin 2.9 g/dL (1.3-3.2); Glucose 182 mg/dl (74-100); Total Protein,Serum 6.7 g/dl (6.3-8.2)
[2023-09-01 19:49] LABS: 25-OH Vitamin D, Total 25.7 ng/mL (30-100)
[2023-09-01 20:30] LABS: Bacteria,Urine 1+ /lpf
== END 2023-09-01 23:59 | disposition home or self-care (01) ==
LOC: LAB.DROPOF 09-02 09:05
PROVIDERS: PCP Nurse Practitioner Family; Visit Provider Nurse Practitioner Family
DX: I10 Essential (primary) hypertension (principal); E11.40 Type 2 diabetes mellitus with diabetic neuropathy, unspecified; Z79.85 Long-term (current) use of injectable non-insulin antidiabetic drugs; Z79.4 Long term (current) use of insulin; E55.9 Vitamin D deficiency, unspecified
CPT/HCPCS: 80053; 81001; 82306; 83036; 84156; 87086

== ENCOUNTER 2023-10-27 15:03 | Outpatient (CLI) | payer BC, SELFPAY | END 2023-10-27 23:59 | disposition home or self-care (01) | LOC: LAB.DROPOF 15:04 | PROVIDERS: PCP Nurse Practitioner Family; Visit Provider Nurse Practitioner Family | DX: M54.50 Low back pain, unspecified (principal) | CPT/HCPCS: 87086 ==

== ENCOUNTER 2023-10-28 08:04 | Outpatient (CLI) | payer BC, SELFPAY ==
--- NOTE | 2023-10-28 08:04 | CT_ITS ---
FINAL REPORT TECHNIQUE: Axial images through the abdomen and pelvis were performed without contrast. This study was performed with techniques to keep radiation doses as low as reasonably achievable, (ALARA). Individualized dose reduction techniques using automated exposure control or adjustment of mA and/or kV according to the patient's size were employed. CLINICAL HISTORY: possible kidney stones COMPARISON: None FINDINGS: CT ABDOMEN AND PELVIS WITHOUT CONTRAST: Abdomen: There is a small noncalcified 4 mm nodule present in the right middle lobe, best seen on image #3 of series 3. Mild diffuse fatty infiltration of the liver is present. The gallbladder has been surgically resected. The spleen, pancreas and adrenals are unremarkable. There are several small nonobstructing 2 to 3 mm in size stones present in the left renal collecting system. No evidence of focal mass or hydronephrosis is seen in either kidney. The patient has undergone prior ventral hernia repair. Pelvis: The urinary bladder is unremarkable. The appendix is not visualized. There is no pelvic mass or inflammation. There is streak artifact from fusion hardware in the right SI joint. A spinal stimulator is noted posteriorly in the superior left gluteal region. IMPRESSION: Several small nonobstructing 2 to 3 mm stones present in the left renal collecting system, without evidence of acute hydronephrosis. Mild diffuse fatty infiltration of the liver, post cholecystectomy. Small noncalcified 4 mm nodule present in the right middle lobe as described. Per Fleischner criteria, recommend 1 year follow-up chest CT to follow. Reviewed, Interpreted and Dictated by Villa Singh MD Transcribed by Ann-Marie Solis Authenticated and [facility]
== END 2023-10-28 23:59 | disposition home or self-care (01) ==
LOC: RAD 08:04
PROVIDERS: PCP Nurse Practitioner Family; Visit Provider Nurse Practitioner Family
DX: R31.9 Hematuria, unspecified (principal); R10.9 Unspecified abdominal pain
CPT/HCPCS: 74176

== ENCOUNTER 2024-02-10 08:28 | Emergency (ER) | payer BC, SELFPAY ==
[2024-02-10 08:36] VITALS: BP 139/85; PULSE 82; O2SAT 98
[2024-02-10 08:40] VITALS: BP 139/85; PULSE 87; RESP 16; TEMP 36.8; O2SAT 99; BMI 26.4
--- OUTSIDE RECORDS SUMMARY | 2024-02-10 08:51 | XMS_ITS | Clinical Summary ---
Author Organization [facility] , [facility] Address [address] [place] [address] Phone Care Team Providers Care Replacer Name Role Phone WM ONEAL, GLO Caruso Unavailable [phone] Livia ONEAL, Mitch Unavailable [phone] Reason for Visit and Chief Complaint The Chief Complaint is: Low back pain Problems Includes: Problems addressed during this encounter and other active Problems Current Visit Onset Date Resolved Date Provider Katheryn montiel Status Lower Back Pain 04/10/2023 Mitch valle MD Active Last Documented On 4 10:34AM ; [facility] Plan of Treatment Instructions to patient Lose weight Last Documented On 4 9:57AM ; [facility] Assessments Includes: Assessments from this encounter Findings - Overweight - Last Documented On 04/14/2023 9:59AM ; [facility] Instructions Includes: Instructions from this encounter Instructions to patient Lose weight Last Documented On 4 9:57AM ; [facility] Medical Equipment - Implanted Devices Includes: Current Devices No Medical Equipment Recorded Medications Includes: Medications discussed during this encounter and other current Medications Current Medications (continue as prescribed) Mounjaro 2.5 MG/0.5ML Subcutaneous Solution Pen-inject or 04/04/2023 Provider: Diagnosis: Last Documented On 4 10:35AM By Jaimee Peralta [facility] Tresiba FlexTouch 200 UNIT/M L Subcutaneous Solution Pen-injector 04/04/2023 Provider: Diagnosis: Last Documented On 4 10:35AM By Jaimee Peralta [facility] Insulin Degludec FlexTouch 1 00 UNIT/ML Subcutaneous Solution Pen-injector 04/02/2023 Provider: Christina Esquivel MD Diagnosis: Last Documented On 4 10:35AM By Jaimee Roberts ; [facility], [facility] Omnipod 5 G6 Intro (Gen 5) Kit 04/02/2023 Provider: Diagnosis: Last Documented On 4 10:35AM By Jaimee Roberts ; [facility], [facility] BD Pen Needle Mini U/F 31G X 5 MM Miscellaneous 2023 Provider: Diagnosis: Last Documented On 4 10:35AM By Jaimee Roberts ; [facility], [facility] Dexcom G6 Transmitter Miscellaneous 03/26/2023 Provi binh: Diagnosis: Last Documented On 4 10:35AM By Jaimee Roberts ; [facility], [facility] Dexcom G6 Sensor Miscellaneous 03/25/2023 Provider: Diagnosis: Last Documented On 4 10:35AM By Jaimee Roberts ; [facility], [facility] Jardiance 25 MG Oral Tablet 03/21/2023 Provider: Diagnosis: Last Documented On 4 10:35AM By Jaimee Roberts ; [facility] DULoxetine HCl 30 MG Oral Capsule Delayed Releas e Particles 03/19/2023 Provider: Diagnosis: Last Documented On 4 10:35AM By Jaimee Roberts ; [facility], [facility] Medications Administered Includes: Administered Medications from this encounter No Administered Medications Recorded Vital Signs Includes: Vital Signs from this encounter Vital Name 04/14/2023 09:57A Height (in) 61 Weight (lb) 155 Body Mass Index 29.3 Body Surface Area 1.7 Note: HL Last Documented: On 04/14/2023 9:57AM ; [facility], [facility] Results Includes: Results discussed during this encounter No Results Recorded For Specified Dates History of Present Illness Includes: History of Present Illness from this encounter DORIS Tobias is a 52 year old female. - Symptoms Catching and giving away Not much makes pain better When I stand awhile or sit makes pain worse. - Allergy list reviewed - Problem list reviewed - Medication list reviewed - Previous history of new onset pain Injury is not work related or an automotive accident - Sharp pain Symptoms - Stabbing - Pain is throbbing - Patient pain level from 1-10: 9 - Yes, previous treatment. - History of Physical Therapy - History of Home Exercise - History of Injections Medications used for this condition: This is a very pleasant 52-year-old female seeing me as a referral from Dr. Medrano. She has done a lot of injections in her including radiofrequency ablations and epidural shots, she has also completed physical therapy and home exercises. He also performed a right SI joint fusion in her. She tells me today that they are exploring the options of the spinal cord stimulator and she is here today for consultation to see if any surgery would potentially help it. She reports pain in her low back. She also has some pain that radiates on the left lower extremity. She otherwise has a history of diabetes. Social History Description Last Updated Tobacco non-user 04/14/2023 Last Documented On 4 9:59AM ; [facility] No caffeine use 04/14/2023 Last Documented On 4 9:59AM ; [facility] No recent change in diet 04/14/2023 Last Documented On 4 9:59AM ; [facility] Not a current smoker. 04/14/2023 Last Documented On 4 9:59AM ; [facility] Not exercising regularly 04/14/2023 Last Documented On 4 9:59AM ; [facility] Not using alcohol 04/14/2023 Last Documented On 4 9:59AM ; [facility] Not using drugs 04/14/2023 Last Documented On 4 9:59AM ; [facility] Smoking Status Unknown Procedures and Surgical History Includes: Procedures from this encounter Procedures Code Diagnosis Performing Provider Service Location Service Date X-RAY EXAM OF LOWER SPINE 4-5 VIEWS 73909 Radiculopathy, lumbar region Mitch Bhakta MD [facility] 04/14/2023 Last Documented On 4 10:38AM ; [facility] use of tobacco assessment performed 1000F Last Documented On 4 8:50AM ; [facility] review of medications documented 1160F Last Documented On 4 8:50AM ; [facility] an X-ray was performed 04/14/2023 Sebastien @ [facility] [id number] Last Documented On 4 8:51AM ; [facility] an MRI was performed 01/21/2023 Sebastien @ [facility] [id number] Last Documented On 4 8:49AM ; [facility] Surgical History Last Updated Past Surgical History: Hip s urgery ~Right SI Joint Fusion with Dr. Gonzalez 04/14/2023 Last Documented On 4 9:59AM ; [facility] History of hernia repair 04/14/2023 Last Documented On 4 9:59AM ; [facility] History of hysterectomy 04/14/2023 Last Documented On 4 9:59AM ; [facility] Medical History Includes: Medical History addressed during this encounter Description Last Updated History of asthma 04/14/2023 Last Documented On 4 9:59AM ; [facility] History of diabetes mellitus 04/14/2023 Last Documented On 4 9:59AM ; [facility] Family History Includes: Family History addressed during this encounter Description Last Updated Diabetes mellitus 04/14/2023 Last Documented On 4 9:59AM ; [facility] Review of Systems Includes: Review of Systems from this encounter Systemic: Not feeling tired, no recent weight loss, and no recent weight gain. Head: No headache and no sinus pain. Eyes: No vision problems, no Cataracts, no Glasses/Contacts, and no Glaucoma. Otolaryngeal: No hearing loss and no tinnitus. Cardiovascular: No chest pain or discomfort, no palpitations, no Hypertension, and no High Cholesterol. Pulmonary: No daytime asthma symptoms and no chronic cough. No wheezing. Gastrointestinal: No heartburn and no abdominal pain. No Indigestion, no Acid Reflux, no Peptic Ulcer, no GI Stomach Bleed, and no Ulcers. Endocrine: No hot flashes and no muscle weakness. Diabetes. No Hypothyroid and no Hyperthyroid. Hematologic: No easy bleeding, no tendency for easy bruising, and no Anemia. Musculoskeletal: No Arthritis. Lower back pain. No soft tissue swelling and no localized joint pain. Neurological: No dizziness, no convulsions, and no numbness. Psychological: No anxiety, no emotional lability, no depression, and no insomnia. Not crying for no reason. Skin: No dry skin. No Ulcers, no Scars, and no rash. Allergic and Immunologic: No complaint of seasonal allergic reaction. Mental Status Includes: Mental Status from this encounter Description No anxiety Functional Status Includes: Functional Status from this encounter No Functional Status Recorded Physical Exam Includes: Physical Exam from this encounter Allergies Includes: Active Allergies No Known Allergies Encounters Encounter Provider Location Date Check-In Time Check-Out Time Diagnosis Physician Specified Mitch valle MD [facility] 04/14/19 24 8:59AM 9:36AM Overweight Insurance Includes: Active Insurance Policies Plan Name Member ID Group # Subscriber Relationship Effect carrington Dates 1 - [facility] Medicaid [id number] Safia Tobias Self Clinical Notes Includes: Clinical Notes from this encounter * Progress note Date Encounter Last Documented by 04/14/2023 Physician Specified Last lizzyumen jamar on 04/14/2023; 9:59 AM, Mitch Bhakta MD; [facility], [facility] Active Problems & Conditions - Lower Back Pain Chief Complaint The Chief Complaint is: Low back pain. Referred Here Referred by Dr. Gonzalez. History of Present Illness Safia Tobias is a 52 year old female. - Symptoms Catching and giving away Not much makes pain better When I stand awhile or sit makes pain worse. - Allergy list reviewed - Problem list reviewed - Medication list reviewed - Previous history of new onset pain Injury is not work related or an automotive accident - Sharp pain Symptoms - Stabbing - Pain is throbbing - Patient pain level from 1-10: 9 - Yes, previous treatment. - History of Physical Therapy - History of Home Exercise - History of Injections Medications used for this condition: This is a very pleasant 52-year-old female seeing me as a referral from Dr. Medrano. She has done a lot of injections in her including radiofrequency ablations and epidural shots, she has also completed physical therapy and home exercises. He also performed a right SI joint fusion in her. She tells me today that they are exploring the options of the spinal cord stimulator and she is here today for consultation to see if any surgery would potentially help it. She reports pain in her low back. She also has some pain that radiates on the left lower extremity. She otherwise has a history of diabetes. Current Medication - BD Pen Needle Mini U/F 31G X 5 MM Miscellaneous 31G X 5 MM 90 days, 0 refills - Dexcom G6 Sensor Miscellaneous 30 days, 0 refills - Dexcom G6 Transmitter Miscellaneous 90 days, 0 refills - DULoxetine HCl 30 MG Oral Capsule Delayed Release Particles 30 days, 0 refills - Insulin Degludec FlexTouch 100 UNIT/ML Subcutaneous Solution Pen-injector 38 days, 0 refills - Jardiance 25 MG Oral Tablet 30 days, 0 refills - Mounjaro 2.5 MG/0.5ML Subcutaneous Solution Pen-injector 28 days, 0 refills - Omnipod 5 G6 Intro (Gen 5) Kit 30 days, 0 refills - Tresiba FlexTouch 200 UNIT/ML Subcutaneous Solution Pen-injector 79 days, 0 refills Past Medical/Surgical History Diagnoses: Asthma. Diabetes mellitus Surgical: - Past Surgical History: Hip surgery Right SI Joint Fusion with Dr. Gonzalez - Hernia repair - Hysterectomy Social History Not a current smoker. Current diet: No recent change in diet. Caffeine use: No caffeine use. Tobacco use: Tobacco non-user. Alcohol: Not using alcohol. Drug Use: Not using drugs. Habits: Not exercising regularly. Allergies - No Known Allergies Family History Diabetes mellitus Review Of Systems Systemic: Not feeling tired, no recent weight loss, and no recent weight gain. Head: No headache and no sinus pain. Eyes: No vision problems, no Cataracts, no Glasses/Contacts, and no Glaucoma. Otolaryngeal: No hearing loss and no tinnitus. Cardiovascular: No chest pain or discomfort, no palpitations, no Hypertension, and no High Cholesterol. Pulmonary: No daytime asthma symptoms and no chronic cough. No wheezing. Gastrointestinal: No heartburn and no abdominal pain. No Indigestion, no Acid Reflux, no Peptic Ulcer, no GI Stomach Bleed, and no Ulcers. Endocrine: No hot flashes and no muscle weakness. Diabetes. No Hypothyroid and no Hyperthyroid. Hematologic: No easy bleeding, no tendency for easy bruising, and no Anemia. Musculoskeletal: No Arthritis. Lower back pain. No soft tissue swelling and no localized joint pain. Neurological: No dizziness, no convulsions, and no numbness. Psychological: No anxiety, no emotional lability, no depression, and no insomnia. Not crying for no reason. Skin: No dry skin. No Ulcers, no Scars, and no rash. Allergic and Immunologic: No complaint of seasonal allergic reaction. Physical Findings - Vitals taken 04/14/2023 09:57 am HL Height 61 in Weight 155 lbs Body Mass Index 29.3 kg/m2 Body Surface Area 1.7 m2 General: Alert and Oriented A&Ox3 Focused Musculoskeletal Exam of the Spine: Patient is able to ambulate in the room without assistive device No focal tenderness to palpation in the Lumbar Spine Motor HF KE AD EHL GS Right 5/5 5/5 5/5 5/5 5/5 Left 5/5 5/5 5/5 5/5 5/5 Sensation L2 L3 L4 L5 S1 Right 2 2 2 2 2 Left 2 2 2 2 2 Patellar reflex is 2+ bilaterally Achilles reflex is 2+ bilaterally No ankle clonus Symmetric, palpable posterior tibialis pulse bilaterally Tests 4v Lumbar Spine X-ray Ap, Lateral, Flexion, and Extension views of the lumbar spine were obtained in the office today There is evidence of a prior ventral hernia repair as well as right SI joint fusion There is no fracture or spondylolisthesis MRI lumbar spine There is really no compressive pathology throughout her lumbar spine There is just some desiccation of her lower lumbar discs most evident at L4-5 and L5-S1 User Defined 5 This is a 52-year-old female with left lumbar radiculopathy and chronic low back pain It was very nice meeting Safia in the office. I told her that I do not see a role for interventional spine surgery in her so she wanted to explore the options of a spinal cord stimulator I think that is very appropriate in her case. She will follow up with her pain management provider and she can follow up with me on as-needed basis. Assessment - Overweight Previous Tests Imaging: X-Ray: An X-ray was performed 04/14/2023 Sebastien @ [facility]. MRI Scan: An MRI was performed 01/21/2023 Sebastien @ [facility]. Counseling/Education - Lose weight Practice Management Use of tobacco assessment performed Review of medications documented. Care Team - GLO BURK MD Notes This dictation was done with voice recognition software and may contain errors and omissions.
--- OUTSIDE RECORDS SUMMARY | 2024-02-10 08:51 | XMS_ITS | Clinical Summary ---
Author Organization [facility] Address [address] [place] [address] Care Team Providers Care Sheet Rock Installation Helper Name Role Phone Duke Esquivel DO Primary Care Provider Allergies No known active allergies Medications amitriptyline (ELAVIL) 50 MG tablet Take 1 tablet by mouth every night at bedtime. 07/10/19 21 Active Vraylar 1.5 MG capsule capsule Take 1 capsule by mouth Every Other Day. 08/05/19 21 Active gabapentin (NEURONTIN) 300 MG capsule Take 1 capsule by mouth 2 (Two) Times a Day. 08/05/19 21 Active OneTouch Ultra test strip 1 each by Other route Daily. 08/05/19 21 Active lisinopril (PRINIVIL,ZESTRIL) 10 MG tablet Take 1 tablet by mouth Daily. 08/05/19 21 Active tiZANidine (ZANAFLEX) 4 MG tablet Take 1 tablet by mouth Daily As Needed. 08/05/19 21 Active venlafaxine XR (EFFEXOR-XR) 150 MG 24 hr capsule Take 1 capsule by mouth Daily. 08/05/19 21 Active ubrogepant (ubrogepant) 50 MG tablet Take 1 at onset of migraine, may repeat in 2 hours x1 10 tablet 5 08/17/19 21 Active Dulaglutide (Trulicity) 3 MG/0.5ML solution pen-injectorIndica tions:Type 2 diabetes mellitus with hyperglycemia, with long-term current use of insulin Inject 0.5 mL under the skin into the appropriate area as directed Every 7 (Seven) Days. 2 mL 3 10/15/19 23 Active Insulin Degludec (Tresiba FlexTouch) 200 UNIT/ML solution pen-injector pen injectionIndicatio ns:Type 2 diabetes mellitus with hyperglycemia, with long-term current use of insulin Inject 46 Units under the skin into the appropriate area as directed Daily. 30 mL 10/15/19 Active Insulin Lispro, 1 Unit Dial, (HumaLOG KwikPen) 100 UNIT/ML solution pen-injectorIndica tions:Type 2 diabetes mellitus with hyperglycemia, with long-term current use of insulin Inject 8 Units under the skin into the appropriate area as directed 3 (Three) Times a Day. Plus 1:50>150, MDD 30 units 30 mL 10/15/19 Active atorvastatin (LIPITOR) 20 MG tabletIndications: Mixed hyperlipidemia Take 1 tablet by mouth Daily. 90 tablet 10/16/19 Active Active Problems Problem Noted Date Diagnosed Date Mixed hyperlipidemia 10/14/2022 Type 2 diabetes mellitus wit h hyperglycemia, with long-term current use of insulin 10/14/2022 Family History Medical History Relation Name Comments Diabetes Brother Diabetes Father Hyperlipidemia Father Hypertension Father Dementia Mother Diabetes Mother Heart attack Mother Hyperlipidemia Mother Stroke Mother Heart disease Sister Relation Name Status Comments Brother Father Alive Mother Sister Social History Tobacco Use Types Packs/Day Years Used Date Smoking Tobacco: Former Smokeless Tobacco: Never Tobacco Cessation:Counseling Given: No Alcohol Use Standard Drinks/Week Comments Not Currently 0 (1 standard drink = 0.6 oz pur e alcohol) Abuse Screen Answer Date Recorded Unsafe at Home or Work/School Not on file Feels Threatened by Someone? Not on file Does Anyone Keep You from Co ntacting Others or Doint Things Outside the Home? Not on file 12/20/2022 Physical Sign of Abuse Present Not on file 1 Housing Stability Answer Date Recorded Current Living Arrangements Not on file 12/08 Potentially Unsafe Housing Conditions Not on raisa e 12/20/2022 Family and Community Support Answer Yemi e Recorded Help with Day-to-Day Activities Not on file 12/20/2022 Lonely or Isolated Not on file 12/20/2022 Employment Answer Date Recorded Do you want help finding or keeping work or a jaime b? Not on file 12/20/2022 Disabilities Answer Date Recorded Concentrating, Remembering, or Making Decisions Difficulty Not on file 12/20/2022 Doing Errands Independently Difficulty Not on fi le 12/20/2022 Education Answer Date Recorded Help with school or training? Not on file Preferred Language Not on file 12/20/2022 Comments Unknown Sex and Gender Information Value Date Recorded Sex Assigned at Not on file Legal Sex Female 9:13 AM EDT Gender Identity Not on file Sexual Orientation Not on file Last Filed Vital Signs Vital Sign Reading Time Taken Comments Blood Pressure 132/74 10/14/2022 9:15 AM EDT Pulse 71 10/14/2022 9:15 AM EDT Temperature 36.4 ??C (97.5 ??F) 08/16/2020 9:57 AM ED T Respiratory Rate - - Oxygen Saturation 98% 10/14/2022 9:15 AM EDT Inhaled Oxygen Concentration - - Weight 62.6 kg (138 lb) 10/14/2022 9:15 AM EDT Height 152.4 cm (5') 10/14/2022 9:15 AM EDT Body Mass Index 26.95 10/14/2022 9:15 AM EDT Plan of Treatment Health Maintenance Due Date Last Done Comments Annual Gynecologic Pelvic an d Breast Exam 1968 COLOGUARD 1968 COLON CANCER SCREENING 5 YEA R SIGMOIDOSCOPY [address] COLONOGRAPHY 1968 FECAL OCCULT BLOOD TEST 1968 FIT Testing (1 year) 1968 Pneumococcal Vaccine 0-64 (1 of 2 - PCV) 1974 DIABETIC EYE EXAM 1978 Hepatitis B (1 of 3 - 19+ 3- dose series) 08/02/1987 TDAP/TD VACCINES (1 - Tdap) 09/25/1989 09/24/1989 MAMMOGRAM 2008 ZOSTER VACCINE (1 of 2) 2018 ANNUAL PHYSICAL 08/16/2020 HEPATITIS C SCREENING 08/16/2020 HEMOGLOBIN A1C 04/16/2023 10/14/2022 INFLUENZA VACCINE 09/08/2023 12/25/2016 DIABETIC FOOT EXAM 10/15/2023 10/14/2022, 0 10/14/2022, 10/14/2022 LIPID PANEL 10/15/2023 10/14/2022 COVID-19 Vaccine (4 - 2023-2 5 season) 2023 04/02/2021, 09/02/2020, 08/04/2020 COLONOSCOPY 02/28/2030 02/29/2020 COLORECTAL CANCER SCREENING 02/28/2030 URINE MICROALBUMIN Discontinued 10/14/2022 Procedures Procedure Name Priority Date/Time Associated Diagnosis Comments MICROALBUMIN / CREATININE URINE RATIO Routine 10/14/2022 10:16 AM EDT Type 2 diabetes mellitus with hyperglycemia, with long-term current use of insulin LIPID PANEL Routine 10/14/2022 10:16 AM EDT Mixed hyperlipidemia POCT GLYCOSYLATED HEMOGLOBIN (HGB A1C) Routine 10/14/2022 9:32 AM EDT Type 2 diabetes mellitus with hyperglycemia, with long-term current use of insulin SCANNED - COLONOSCOPY 02/29/2020 from Last 3 Months or Most Recently Relevant to Health Maintenance Results * Microalbumin / Creatinine Urine Ratio - Urine, Clean Catch (10/14/2022 10:16 AM EDT) Microalbumin/C reatinine Ratio 10/14/2022 7:27 PM EDT [facility] Comment:Unable to calculate Creatinine, Urine 50.4 mg/dL 10/14/2022 7:27 PM EDT [facility] Microalbumin, Urine <1.2 mg/dL 10/14/2022 7:27 PM EDT [facility] Urine Urine specimen obtained by clean catch procedure / Unknown Collection / Unknown 10/14/2022 10:16 AM EDT 10/14/2022 10:16 AM EDT us Helen Duong DO URINE ORDERABLES Final Re sult [facility]
[address] [place] [address], [place] [phone] * (ABNORMAL) Lipid Panel (10/14/2022 10:16 AM EDT) Total Cholesterol 181 0 - 200 mg/dL 10/14/2022 6:55 PM EDT [facility] Triglycerides 193(H) 0 - 150 mg/dL 10/14/2022 6:55 PM EDT [facility] HDL Cholesterol 51 40 - 60 mg/dL 10/14/2022 6:55 PM EDT [facility] LDL Cholesterol 97 0 - 100 mg/dL 10/14/2022 6:55 PM EDT [facility] VLDL Cholesterol 33 5 - 40 mg/dL 10/14/2022 6:55 PM EDT [facility] LDL/HDL Ratio 1.79 10/14/2022 6:55 PM T [facility] Blood Venipuncture / Unknown 10/14/2022 10:16 AM EDT 10/14/2022 10:16 AM EDT [facility] - 10/14/2022 6:55 PM EDT Cholesterol Reference Ranges (U.S. Department of Health and Human Services ATP III Classifications) Desirable ?<200 mg/dL Borderline High ?200-239 mg/dL High Risk ?>240 mg/dL Triglyceride Reference Ranges (U.S. Department of Health and Human Services ATP III Classifications) Normal ? <150 mg/dL Borderline High ??150-199 mg/dL High ? 200-499 mg/dL Very High ?>500 mg/dL HDL Reference Ranges (U.S. Department of Health and Human Services ATP III Classifications) Low ? <40 mg/dl (major risk factor for CHD) High ?>60 mg/dl ('negative' risk factor for CHD) LDL Reference Ranges (U.S. Department of Health and Human Services ATP III Classifications) Optimal ?<100 mg/dL Near Optimal ? 100-129 mg/dL Borderline High ??130-159 mg/dL High ? 160-189 mg/dL Very High ?>189 mg/dL Helen Duong DO LAB BLOOD ORDERABLES Delia l Result [facility]
[address] [place] [address], [place] [phone] * POC Glycosylated Hemoglobin (Hb A1C) (10/14/2022 9:32 AM EDT) Hemoglobin A1C 11.8 % [facility] Lot Number [id number] [facility] Expiration Date 02/19/24 [facility] Blood 10/14/2022 9:32 AM EDT Helen Duong DO POINT OF CARE TEST ORDERA BLES Final Result Performing Organization Address [facility] Co de Phone Number [facility]
[address] [place] [address], [place] [phone] * SCANNED - COLONOSCOPY (02/29/2020) Kelli Tomas DO CHART REVIEW TABS Final Result from Last 3 Months or Most Recently Relevant to Health Maintenance Insurance MEDICAID Care Teams Sheet Rock Installation Helper Relationship Specialty Start Date End Date Duke Esquivel DO [address] [facility] [address] [place] [address] PCP - General Internal Medicine 08/16/20
--- OUTSIDE RECORDS SUMMARY | 2024-02-10 08:51 | XMS_ITS | Clinical Summary ---
Author Organization [facility] , [facility] Address [address] [place] [address] Phone Care Team Providers Care Search Director Name Role Phone WM ONEAL, GLO Caruso Unavailable [phone] Livia ONEAL, Mitch Unavailable [phone] Reason for Visit and Chief Complaint [Patient Encounter] Problems Includes: Problems addressed during this encounter and other active Problems Current Visit Onset Date Resolved Date Provider Katheryn montiel Status Lower Back Pain 04/10/2023 Mitch valle MD Active Last Documented On 4 10:34AM ; [facility] Plan of Treatment No Plan of Treatment Recorded Assessments Includes: Assessments from this encounter No Assessments Recorded Medical Equipment - Implanted Devices Includes: Current Devices No Medical Equipment Recorded Medications Includes: Medications discussed during this encounter and other current Medications Discontinued / Stopped on this date Duke Esquivel MD on 04/02/2023 Insulin Degludec FlexTouch 1 00 UNIT/ML Subcutaneous Solution Pen-injector Provider: Christina Esquivel MD Diagnosis: Last Documented On 4 10:36AM By Jaimee Peralta [facility] BD Pen Needle Mini U/F 31G X 5 MM Miscellaneous Provider: Diagnosis: Last Documented On 4 10:36AM By Jaimee Peralta [facility] Insulin Degludec FlexTouch 1 00 UNIT/ML Subcutaneous Solution Pen-injector Provider: Christina Esquivel MD Diagnosis: Last Documented On 4 10:36AM By Jaimee Peralta [facility], [facility] Trulicity 4.5 MG/0.5ML Subcu taneous Solution Pen-injector Provider: uDke proctor MD Diagnosis: Last Documented On 4 10:36AM By Jaimee Roberts ; [facility], [facility] Current Medications (continue as prescribed) Mounjaro 2.5 MG/0.5ML Subcutaneous Solution Pen-inject or 04/04/2023 Provider: Diagnosis: Last Documented On 4 10:35AM By Jaimee Roberts ; [facility], [facility] Tresiba FlexTouch 200 UNIT/M L Subcutaneous Solution Pen-injector 04/04/2023 Provider: Diagnosis: Last Documented On 4 10:35AM By Jaimee Roberts ; [facility], [facility] Insulin Degludec FlexTouch 1 00 UNIT/ML Subcutaneous Solution Pen-injector 04/02/2023 Provider: Christina Esquivel MD Diagnosis: Last Documented On 4 10:35AM By Jaimee Roberts ; [facility], [facility] Omnipod 5 G6 Intro (Gen 5) Kit 04/02/2023 Provider: Diagnosis: Last Documented On 4 10:35AM By Jaimee Roberts ; [facility], [facility] BD Pen Needle Mini U/F 31G X 5 MM Miscellaneous 2023 Provider: Diagnosis: Last Documented On 4 10:35AM By Jaimee Roberts ; [facility], [facility] Dexcom G6 Transmitter Miscellaneous 03/26/2023 Provi binh: Diagnosis: Last Documented On 4 10:35AM By Jaimee Roberts ; [facility], [facility] Dexcom G6 Sensor Miscellaneous 03/25/2023 Provider: Diagnosis: Last Documented On 4 10:35AM By Jaimee Roberts ; [facility], [facility] Jardiance 25 MG Oral Tablet 03/21/2023 Provider: Diagnosis: Last Documented On 4 10:35AM By Jaimee Roberts ; [facility], [facility] DULoxetine HCl 30 MG Oral Capsule Delayed Releas e Particles 03/19/2023 Provider: Diagnosis: Last Documented On 4 10:35AM By Jaimee Roberts ; [facility], [facility] Medications Administered Includes: Administered Medications from this encounter No Administered Medications Recorded Results Includes: Results discussed during this encounter No Results Recorded For Specified Dates History of Present Illness Includes: History of Present Illness from this encounter No History of Present Illness Recorded Social History No Social History Recorded - Smoking Status Unknown Medical History Includes: Medical History addressed during this encounter No Medical History Recorded Family History Includes: Family History addressed during this encounter No Family History Recorded Review of Systems Includes: Review of Systems from this encounter No Review of Systems Recorded Mental Status Includes: Mental Status from this encounter No Mental Status Recorded Functional Status Includes: Functional Status from this encounter No Functional Status Recorded Physical Exam Includes: Physical Exam from this encounter No Physical Exam Recorded Allergies Includes: Active Allergies No Known Allergies Encounters Encounter Provider Location Date Check-In Time Check-Out Time Diagnosis [Patient Encounter] Mitch Bhakta MD 04/10/2023 10:34AM 11:59PM Insurance Includes: Active Insurance Policies Plan Name Member ID Group # Subscriber Relationship Effect carrington Dates 1 - BCBS Medicaid [id number] Safia Sandoval Clinical Notes Includes: Clinical Notes from this encounter No Clinical Notes Recorded
--- OUTSIDE RECORDS SUMMARY | 2024-02-10 08:51 | XMS_ITS ---
Author Organization [facility] , [facility] Address [address] [place] [address] Phone Care Team Providers Care It Support Manager Name Role Phone WM ONEAL, GLO Caruso Unavailable [phone] Livia ONEAL, Mitch Unavailable [phone] Problems Includes: Active, inactive, and resolved Problems All Visits Onset Date Resolved Date Provider Condition S tatus Lower Back Pain 04/10/2023 Mitch valle MD Active Last Documented On 4 10:34AM ; [facility] Plan of Treatment Instructions to patient Lose weight Last Documented On 4 9:57AM ; [facility] Assessments Includes: Assessments for all patient encounters Findings Encounter Date Overweight Physician Specified with Mitch Bhakta MD 04/14/2023 Last Documented On 4 9:59AM ; [facility] Instructions Includes: Instructions for all patient encounters Instructions to patient Lose weight Last Documented On 4 9:57AM ; [facility] Medical Equipment - Implanted Devices Includes: Current and historical Devices No Medical Equipment Recorded Medications Includes: Current and historical Medications Current Medications (continue as prescribed) Mounjaro 2.5 MG/0.5ML Subcutaneous Solution Pen-inject or 04/04/2023 Provider: Diagnosis: Last Documented On 4 10:35AM By Jaimee Peralta [facility], [facility] Tresiba FlexTouch 200 UNIT/M L Subcutaneous Solution Pen-injector 04/04/2023 Provider: Diagnosis: Last Documented On 4 10:35AM By Jaimee Peralta [facility], [facility] Insulin Degludec FlexTouch 1 00 UNIT/ML Subcutaneous Solution Pen-injector 04/02/2023 Provider: Christina Esquivel MD Diagnosis: Last Documented On 4 10:35AM By Jaimee Roberts ; [facility], [facility] Omnipod 5 G6 Intro (Gen 5) Kit 04/02/2023 Provider: Diagnosis: Last Documented On 4 10:35AM By Jaimee Roberts ; [facility], [facility] BD Pen Needle Mini U/F 31G X 5 MM Miscellaneous 2023 Provider: Diagnosis: Last Documented On 4 10:35AM By Jaimee Roberts ; [facility], [facility] Dexcom G6 Transmitter Miscellaneous 03/26/2023 Provi binh: Diagnosis: Last Documented On 4 10:35AM By Jaimee Roberts ; [facility], [facility] Dexcom G6 Sensor Miscellaneous 03/25/2023 Provider: Diagnosis: Last Documented On 4 10:35AM By Jaimee Roberts ; [facility], [facility] Jardiance 25 MG Oral Tablet 03/21/2023 Provider: Diagnosis: Last Documented On 4 10:35AM By Jaimee Roberts ; [facility], [facility] DULoxetine HCl 30 MG Oral Capsule Delayed Releas e Particles 03/19/2023 Provider: Diagnosis: Last Documented On 4 10:35AM By Jaimee Roberts ; [facility], [facility] Past Medications on file Insulin Degludec FlexTouch 100 UNIT/ML Subcutaneous Solution Pen-injector 04/02/2023 - 04/10/2023 Provider: Duke wright MD Diagnosis: Last Documented On 4 10:36AM By Jaimee Roberts ; [facility], [facility] BD Pen Needle Mini U/F 31G X 5 MM Miscellaneous 03/30/2023 - 04/10/2023 Provider: Diagnosis: Last Documented On 4 10:36AM By Jaimee Roberts ; [facility], [facility] Insulin Degludec FlexTouch 100 UNIT/ML Subcutaneous Solution Pen-injector 02/26/2023 - 04/10/2023 Provider: Duke wright MD Diagnosis: Last Documented On 4 10:36AM By Jaimee Roberts ; [facility], [facility] Trulicity 4.5 MG/0.5ML Subcutaneous Solution Pen-injector 01/06/2023 - 04/10/2023 Provider: Duke sylvester MD Diagnosis: Last Documented On 4 10:36AM By Jaimee Roberts ; [facility], [facility] Medications Administered Includes: Administered Medications in patient's chart No Administered Medications Recorded Vital Signs Includes: Vital Signs from 02/09/2023 through 02/10/2024 Vital Name 04/14/2023 09:57A Height (in) 61 Weight (lb) 155 Body Mass Index 29.3 Body Surface Area 1.7 Note: HL Last Documented: On 04/14/2023 9:57AM ; [facility], [facility] Results Includes: Results from 02/09/2023 through 02/10/2024 No Results Recorded For Specified Dates History of Present Illness History of Present Illness not supported for this document type No History of Present Illness Recorded Social History Description Last Updated Tobacco non-user 04/14/2023 Last Documented On 4 9:59AM ; [facility], [facility] No caffeine use 04/14/2023 Last Documented On 4 9:59AM ; [facility], [facility] No recent change in diet 04/14/2023 Last Documented On 4 9:59AM ; [facility], [facility] Not a current smoker. 04/14/2023 Last Documented On 4 9:59AM ; [facility], [facility] Not exercising regularly 04/14/2023 Last Documented On 4 9:59AM ; [facility] Not using alcohol 04/14/2023 Last Documented On 4 9:59AM ; [facility], [facility] Not using drugs 04/14/2023 Last Documented On 4 9:59AM ; [facility], [facility] Smoking Status Unknown Procedures and Surgical History Includes: Procedures from 02/09/2023 through 02/10/2024 Procedures Code Diagnosis Performing Provider Service Location Service Date X-RAY EXAM OF LOWER SPINE 4-5 VIEWS 22487 Radiculopathy, lumbar region Mitch Bhakta MD [facility] 04/14/2023 Last Documented On 4 10:38AM ; [facility] Surgical History Last Updated Past Surgical History: Hip s urgery ~Right SI Joint Fusion with Dr. Gonzalez 04/14/2023 Last Documented On 4 9:59AM ; [facility] History of hernia repair 04/14/2023 Last Documented On 4 9:59AM ; [facility] History of hysterectomy 04/14/2023 Last Documented On 4 9:59AM ; [facility] Medical History Includes: Medical History in patient's chart Description Last Updated History of asthma 04/14/2023 Last Documented On 4 9:59AM ; [facility] History of diabetes mellitus 04/14/2023 Last Documented On 4 9:59AM ; [facility] Family History Includes: Family History in patient's chart Description Last Updated Diabetes mellitus 04/14/2023 Last Documented On 4 9:59AM ; [facility] Review of Systems Review of Systems not supported for this document type No Review of Systems Recorded Mental Status Description No anxiety Functional Status No Functional Status Recorded Physical Exam Physical Exam not supported for this document type No Physical Exam Recorded Allergies Includes: Active, inactive, and resolved Allergies No Known Allergies Encounters Includes: Encounters from 02/09/2023 through 02/10/2024 Encounter Provider Location Date Check-In Time Check-Out Time Diagnosis Physician Specified Mitch valle MD [facility] 04/14/19 24 8:59AM 9:36AM Overweight [Patient Encounter] Mitch valle MD 04/10/19 24 10:34AM 11:59PM Insurance Includes: Active Insurance Policies Plan Name Member ID Group # Subscriber Relationship Effect carrington Dates 1 - BCBS Medicaid [id number] Safia Sandoval Clinical Notes Includes: Signed Clinical Notes starting from 02/21/2022 * Progress note Date Encounter Last Documented by 04/14/2023 Physician Specified Last ezra jamar on 04/14/2023; 9:59 AM, Mitch Bhakta MD; [facility], [facility] Active Problems & Conditions - Lower [...] An X-ray was performed 04/14/2023 Sebastien @ [facility]. MRI Scan: An MRI was performed 01/21/2023 Sebastien @ [facility]. Counseling/Education - Lose weight Practice Management Use of tobacco assessment performed Review of medications documented. Care Team - GLO BURK MD Notes This dictation was done with voice recognition software and may contain errors and omissions.
--- OUTSIDE RECORDS SUMMARY | 2024-02-10 08:51 | XMS_ITS ---
Care Plan - [facility], [facility] Created on: February 10, 2024 Safia Tobias : 1970 Sex: Female Author Organization [facility] , [facility] Address [address] [place] [phone] Phone Care Team Providers Care Portfolio Lead Name Role Phone WM ONEAL, GLO Caruso Unavailable [phone] Livia ONEAL, Mitch Unavailable [phone]
--- OUTSIDE RECORDS SUMMARY | 2024-02-10 08:52 | XMS_ITS | Encounter Summary ---
Author Organization [facility] Address [address] [place] [address] Care Team Providers Care Cold Roller Name Role Phone Christina Esquivelew Shankar LLANES Primary Care Provider Encounter Details Date Type Department Care Team (Late st Contact Info) Description 08/17/[address] [facility] [address] [address] Lashawn Winkler CMA Social History Tobacco Use Types Packs/Day Years Used Date Smoking Tobacco: Former Smokeless Tobacco: Never Alcohol Use Standard Drinks/Week Comments Not Currently 0 (1 standard drink = 0.6 oz pur e alcohol) Comments Unknown Sex and Gender Information Value Date Recorded Sex Assigned at Not on file Legal Sex Female 9:13 AM EDT Gender Identity Not on file Sexual Orientation Not on file documented as of this encounter Miscellaneous Notes * Telephone Encounter - Bridgette Crane MA - 08/22/2020 3:49 PM EDT PA denied, DID NOT MEET CRITERIA. NOTHING DOCUMENTED THAT SHE HAS TRIED OR FAILED TRIPTANS, OR HAS A CONTRINDICATION TO TRIPTANS * Telephone Encounter - Lashawn Winkler CMA - 08/17/2020 11:23 AM EDT PA FOR [employer]BRE[employer] COMPLETED VERMA IS [id number] WAITING ON REPSONSE FROM INSURANCE documented in this encounter Plan of Treatment Not on file documented as of this encounter Visit Diagnoses Not on filedocumented in this encounter Care Teams Cold Roller Relationship Specialty Start Date End Date Duke Esquivel DO [address] [place] [address] PCP - General Internal Medicine 08/16/20 documented as of this encounter
--- OUTSIDE RECORDS SUMMARY | 2024-02-10 08:52 | XMS_ITS | Encounter Summary ---
Author Organization [facility] Address [address] [place] [address] Care Team Providers Care Commercial Housekeeper Name Role Phone Tiffanie Rasheed Primary Care Provider [phone] Reason for Visit * Reason Comments Dental Pain Encounter Details Date Type Department Care Team ([facility] st Contact Info) Description 07/24/2021 7:30 AM EDT Office Visit [facility] [address] [place] [address] Care, Dentistry Urgent Tooth pain (Primary Dx) Social History Tobacco Use Types Packs/Day Years Used Date Smoking Tobacco: Former Cigarettes Smokeless Tobacco: Never Alcohol Use Standard Drinks/Week Comments No 0 (1 standard drink = 0.6 oz pur e alcohol) Comments Unknown Sex and Gender Information Value Date Recorded Sex Assigned at Not on file Legal Sex Female 7:44 PM EDT Gender Identity Not on file Sexual Orientation Not on file COVID-19 Exposure Response Date Recorded In the last 10 days, have yo u been in contact with someone who was confirmed or suspected to have Coronavirus/COVID-19? No / Unsure 07/24/2021 7:31 AM EDT documented as of this encounter Last Filed Vital Signs Vital Sign Reading Time Taken Comments Blood Pressure 131/93 07/24/2021 8:07 AM EDT Pulse 80 07/24/2021 8:07 AM EDT Temperature - - Respiratory Rate - - Oxygen Saturation - - Inhaled Oxygen Concentration - - Weight - - Height - - Body Mass Index - - documented in this encounter Miscellaneous Notes * Progress Notes - Law Garay - 07/24/2021 7:30 AM EDT Urgent Care Assessment Chief Complaint Patient presents with ??? Dental Pain Dental Pain This is a recurrent problem. The current episode started in the past 7 days. The problem occurs every few hours. The problem has been unchanged. The pain is at a severity of 9/10. The pain is severe.She has tried NSAIDs for the symptoms. The treatment provided significant relief. ROS Negative for: shortness of breath, chest pain, fever and fatigue Positive for: N/A Patient is alert, awake, and well oriented. Past Medical History: Diagnosis Date ??? Calculus of gallbladder without cholecystitis without obstruction Gall stones ??? Personal history of other diseases of the circulatory system History of hypertension ??? Personal history of other endocrine, nutritional and metabolic disease History of diabetes mellitus ??? Personal history of urinary calculi History of renal calculi No current outpatient medications on file. No orders of the defined types were placed in this encounter. No Known Allergies Social History Tobacco Use Smoking Status Former Smoker ??? Types: Cigarettes Smokeless Tobacco Never Used Patient reports no history of alcohol use. Visit Vitals BP (!) 131/93 Pulse 80 Smoking Status Former Smoker Clinical Exam: Extraoral: normal findings Intraoral: ??? CC Area: UL ??? Diagnostic Testing: N/A ??? Palpation: Untested ??? Percussion: Untested ??? Cold: Untested ??? EPT: Untested ??? Mobility: Class 0 General Appearance: Swelling: No Remaining Dentition: in good health Multiple Missing Teeth: No Additional Info: Generalized gingivitis Radiographic Exam: Film ordered: Periapical radiograph Date Ordered: 07/24/21 Radiographic Indications: Dental pain Location: [facility] Radiographic Observations: [place] of #13 fractured at the distal down to the gum line. Radiographic Interpretation/Diagnosis: Fractured tooth with no periapical involvement. Assessment/Diagnosis: Tooth/teeth # : 13 Pulpal diagnosis: Normal Pulp Apical diagnosis: Normal apical tissues Other diagnosis: Fractured tooth Plan/Procedure: Pt was anesthetized using 2% Lidocaine (1:100,000 epi) [1 carpule] via palatal injection and infiltration. After numbness achieved, periosteal elevator was used followed by small, medium and large elevators. 150 forceps were then placed on the tooth and was successfully extracted in one piece. Socket was irrigated and suctioned and gauze was placed. Pt was given post-op instructions verbally and written. Pt had no questions and left in good spirits. Recommendations: Pt was given instructions on how to become a pt of record at the student clinic. Pt needs OD and likely needs to be seen for perio eval. Procedure Report Tooth #/Area: 13 Tooth/Teeth Prognosis: Poor Procedure: Extraction Consent Obtained: Yes Anesthesia: 2% Lidocaine w/1:100,000 Epi 1.7mL - 1 carpule - Infiltration and Palatal N2O: No Description of Procedure: Extraction Complications: None Post-op Instructions: Verbal and Written Medications Prescribed: N/A OTC: Recommended OTC NSAID's for the next 3-5 day Follow up: As needed Cosigned by Eladio Byrd DMD at 07/26/2021 9:48 AM EDT Associated attestation - Eladio Byrd DMD - 07/26/2021 9:48 AM EDT I saw and evaluated the patient with the dental student. I discussed the case with the dental student and agree with the findings and plan as documented. I personally performed the Exam and Medical Decision Making. documented in this encounter Plan of Treatment Upcoming Encounters Date Type Department Care Team (Late st Contact Info) Description 03/16/2024 2:30 PM EST Evaluation [facility] [address] [phone] documented as of this encounter Procedures Procedure Name Priority Date/Time Associated Diagnosis Comments 13 EXTRACTION, ERUPTED TOOTH OR EXPOSED ROOT (ELEVATION AND/OR FORCEPS REMOVAL) Routine 07/24/2021 7:30 AM EDT Tooth pain 13 INTRAORAL - PERIAPICAL FIRST RADIOGRAPHIC IMAGE Routine 07/24/2021 7:30 AM EDT Tooth pain LIMITED ORAL EVALUATION - PROBLEM FOCUSED Routine 07/24/2021 7:30 AM EDT Tooth pain documented in this encounter Visit Diagnoses Diagnosis Tooth pain- Primary Unspecified disorder of the teeth and supporting structures documented in this encounter Care Teams Commercial Housekeeper Relationship Specialty Start Date End Date Tiffanie Rasheed PA [address] [place] [address] PCP - General 07/21/20 documented as of this encounter
--- OUTSIDE RECORDS SUMMARY | 2024-02-10 08:52 | XMS_ITS | Data Portability ---
Author Organization [facility] & NOELLE Schroeder ADMIN Address [address] [place] [id number] Care Team Providers Care Marine Plumber Name Role Phone CISCO BURK Primary Care Provider [phone] Assessment Encounter Date Assessment Date Assessment LastModified by Organization Details LastModified Time 09/02/2023 09/02/2023 Ms. Tobias has a history of lumbar degenerative disc disease/lumbar spondylosis, sacroiliitis, and diabetic neuropathy. The patient underwent a minimally-invasive left SI joint fusion in 04/2021 and a minimally-invasive right SI joint fusion in 07/2022. The patient recently underwent a right foot surgery. The patient presents to the clinic today 1 week S/P SCS implant x2 thoracic leads for a post-op check. The patient reports experiencing significant (nearly 100% pain relief) improvement in pain and function similar to that of the trial period. The midline and gluteal incision sites are well-approximated with sutures, healing well without signs of infection. The patient was placed in a standing position with the back slightly arched and relaxed. The tape was removed followed by suture removal (all sutures were removed). The patient tolerated the procedure well without sheba-procedural complications or bleeding. The patient denies post-op complications or signs of infection. I addressed all questions/concerns regarding post-op care/restrictions. An [employer] agency sales representative was present for education and to assist with reprogramming. I will follow up in 1 week for a 2 week post-op check. FROM PRIOR VISIT: The patient continues to complain of low back and BLE pain (worse on the left). 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 The patient meets the Budapest Criteria for CRPS: pain is disproportionate to any inciting event; sensory changes present (hyperalgesia and/or allodynia); vasomotor changes present (temperature and/or color); sudomotor changes present (edema and/or sweating); motor changes present (decreased ROM and/or motor dysfunction); trophic changes present; no other diagnosis better explains pain or symptoms. I have reviewed the lumbar MRI (01/2023), which revealed no significant canal stenosis or neural foraminal narrowing. Imaging is necessary to assess the epidural space to ensure adequate space for lead placement prior to pursuing SCS therapy. I think the patient is a good candidate for neuromodulation (SCS therapy), as their pain has been refractory to conservative (PT), pharmacologic, and interventional approaches. The patient has attempted to make lifestyle modifications, but pain continues to impede performing ADLs, thereby negatively affecting quality of life. At a prior visit, I started the work up for a SCS trial x2 thoracic leads. I think SCS therapy has potential to target both low back and radicular/neuropat hic pain of the BLE. The patient completed a pain psych consult, where she was considered to be an appropriate candidate for SCS therapy from a psychological perspective. I have reviewed the pain psych note. The patient also completed an ortho spine consult, where she was reportedly deemed non-surgical. I have reviewed the ortho spine note. I counseled the patient extensively and informed of the risks of the procedure, including the risk of paralysis, nerve damage, respiratory arrest, arrhythmias, stroke, weakness, and infection, which although very low, could result in or disability. The patient acknowledged to me that they understand and accept these risks. RN EDUCATION Extensive coordination of care provided by RN to educate patient on upcoming procedure and to coordinate obtaining extensive incoming medical records. I have discussed in great detail our potential treatment options which would include a rehabilitative approach to care. This program would include medication management, Physical Therapy, consideration for interventional procedures as appropriate, and lifestyle modification (diet, weight loss, exercise, smoking/tobacco cessation, holistic approach including meditation and yoga). The patient understands and agrees prior to proceeding with this plan. _ __ __ __ __ __ __ __ __ __ __ __ __ __ __ __ __ __ __ __ __ __ __ __ __ __ __ __ _ RECORDS REVIEW: As per clinic policy, we will have the patient sign a release to obtain previous imaging and clinical notes. _ __ __ __ __ __ __ __ __ __ __ __ __ __ __ __ __ __ __ __ __ __ __ __ __ __ __ __ _ PSYCH: Pain affecting Neuro-psych behavior was discussed. Discussed about pain psychological counseling as a part of the multimodal approach to pain treatment. _ __ __ __ __ __ __ __ __ __ __ __ __ __ __ __ __ __ __ __ __ __ __ __ __ __ __ __ _ REHABILITATION: Discussed with the patient the importance of diet, daily physical activity and PT. Discussed with the patient the need to be scheduled for physical therapy since physical therapy will prolong the benefits of the procedure and interventions. _ __ __ __ __ __ __ __ __ __ __ __ __ __ __ __ __ __ __ __ __ __ __ __ __ __ __ __ _ [facility]: [id number] I have reviewed patient's DOTTIE report prior to prescribing Schedule II, III, and IV medications that require review by law. [email or web address] Not available 09/03/2023 15:14:09 09/08/2023 09/08/2023 Ms. Tobias has a history of lumbar degenerative disc disease/lumbar spondylosis, sacroiliitis, and diabetic neuropathy. The patient underwent a minimally-invasive left SI joint fusion in 04/2021 and a minimally-invasive right SI joint fusion in 07/2022. The patient recently underwent a right foot surgery. The patient presents to the clinic today 2 weeks S/P SCS implant x2 thoracic leads for a post-op check. The patient reports experiencing significant (nearly 100% pain relief) improvement in pain and function similar to that of the trial period. The patient denies post-op complications or signs of infection. I again addressed all questions/concerns regarding post-op care/restrictions. An [employer] sales representative was present for education and to assist with reprogramming as needed. I will adjust the settings to better target the pain pattern. I emphasized that the goal is to optimize SCS therapy. I will follow up in 2-3 weeks for a post-op check. FROM PRIOR VISIT: The patient continues to complain of low back and BLE pain (worse on the left). 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 The patient meets the Budapest Criteria for CRPS: pain is disproportionate to any inciting event; sensory changes present (hyperalgesia and/or allodynia); vasomotor changes present (temperature and/or color); sudomotor changes present (edema and/or sweating); motor changes present (decreased ROM and/or motor dysfunction); trophic changes present; no other diagnosis better explains pain or symptoms. I have reviewed the lumbar MRI (01/2023), which revealed no significant canal stenosis or neural foraminal narrowing. Imaging is necessary to assess the epidural space to ensure adequate space for lead placement prior to pursuing SCS therapy. I think the patient is a good candidate for neuromodulation (SCS therapy), as their pain has been refractory to conservative (PT), pharmacologic, and interventional approaches. The patient has attempted to make lifestyle modifications, but pain continues to impede performing ADLs, thereby negatively affecting quality of life. At a prior visit, I started the work up for a SCS trial x2 thoracic leads. I think SCS therapy has potential to target both low back and radicular/neuropat hic pain of the BLE. The patient completed a pain psych consult, where she was considered to be an appropriate candidate for SCS therapy from a psychological perspective. I have reviewed the pain psych note. The patient also completed an ortho spine consult, where she was reportedly deemed non-surgical. I have reviewed the ortho spine note. I counseled the patient extensively and informed of the risks of the procedure, including the risk of paralysis, nerve damage, respiratory arrest, arrhythmias, stroke, weakness, and infection, which although very low, could result in or disability. The patient acknowledged to me that they understand and accept these risks. RN EDUCATION Extensive coordination of care provided by RN to educate patient on upcoming procedure and to coordinate obtaining extensive incoming medical records. I have discussed in great detail our potential treatment options which would include a rehabilitative approach to care. This program would include medication management, Physical Therapy, consideration for interventional procedures as appropriate, and lifestyle modification (diet, weight loss, exercise, smoking/tobacco cessation, holistic approach including meditation and yoga). The patient understands and agrees prior to proceeding with this plan. _ __ __ __ __ __ __ __ __ __ __ __ __ __ __ __ __ __ __ __ __ __ __ __ __ __ __ __ _ RECORDS REVIEW: As per clinic policy, we will have the patient sign a release to obtain previous imaging and clinical notes. _ __ __ __ __ __ __ __ __ __ __ __ __ __ __ __ __ __ __ __ __ __ __ __ __ __ __ __ _ PSYCH: Pain affecting Neuro-psych behavior was discussed. Discussed about pain psychological counseling as a part of the multimodal approach to pain treatment. _ __ __ __ __ __ __ __ __ __ __ __ __ __ __ __ __ __ __ __ __ __ __ __ __ __ __ __ _ REHABILITATION: Discussed with the patient the importance of diet, daily physical activity and PT. Discussed with the patient the need to be scheduled for physical therapy since physical therapy will prolong the benefits of the procedure and interventions. _ __ __ __ __ __ __ __ __ __ __ __ __ __ __ __ __ __ __ __ __ __ __ __ __ __ __ __ _ DOTTIE: [id number] I have reviewed patient's DOTTIE report prior to prescribing Schedule II, III, and IV medications that require review by law. Not available 09/10/2023 11:07:03 09/24/2023 09/24/2023 Ms. Tobias has a history of lumbar degenerative disc disease/lumbar spondylosis, sacroiliitis, and diabetic neuropathy. The patient underwent a minimally-invasive left SI joint fusion in 04/2021 and a minimally-invasive right SI joint fusion in 07/2022. The patient recently underwent a right foot surgery. The patient presents to the clinic today 1 month S/P SCS implant x2 thoracic leads for a post-op check. The patient reports experiencing significant (nearly 100% pain relief) improvement in pain and function similar to that of the trial period. The patient denies post-op complications or signs of infection. I again addressed all questions/concerns regarding post-op care/restrictions. An [employer] sales representative was present for education and to assist with reprogramming as needed. Considering that pain is well-controlled on the current settings, I won't conduct a reprogramming. I will place a referral to PT with focus on the lumbar spine and BLE. I will follow up in 4-6 weeks for a post-op check. FROM PRIOR VISIT: The patient continues to complain of low back and BLE pain (worse on the left). 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 The patient meets the Budapest Criteria for CRPS: pain is disproportionate to any inciting event; sensory changes present (hyperalgesia and/or allodynia); vasomotor changes present (temperature and/or color); sudomotor changes present (edema and/or sweating); motor changes present (decreased ROM and/or motor dysfunction); trophic changes present; no other diagnosis better explains pain or symptoms. I have reviewed the lumbar MRI (01/2023), which revealed no significant canal stenosis or neural foraminal narrowing. Imaging is necessary to assess the epidural space to ensure adequate space for lead placement prior to pursuing SCS therapy. I think the patient is a good candidate for neuromodulation (SCS therapy), as their pain has been refractory to conservative (PT), pharmacologic, and interventional approaches. The patient has attempted to make lifestyle modifications, but pain continues to impede performing ADLs, thereby negatively affecting quality of life. At a prior visit, I started the work up for a SCS trial x2 thoracic leads. I think SCS therapy has potential to target both low back and radicular/neuropat hic pain of the BLE. The patient completed a pain psych consult, where she was considered to be an appropriate candidate for SCS therapy from a psychological perspective. I have reviewed the pain psych note. The patient also completed an ortho spine consult, where she was reportedly deemed non-surgical. I have reviewed the ortho spine note. I counseled the patient extensively and informed of the risks of the procedure, including the risk of paralysis, nerve damage, respiratory arrest, arrhythmias, stroke, weakness, and infection, which although very low, could result in or disability. The patient acknowledged to me that they understand and accept these risks. RN EDUCATION Extensive coordination of care provided by RN to educate patient on upcoming procedure and to coordinate obtaining extensive incoming medical records. I have discussed in great detail our potential treatment options which would include a rehabilitative approach to care. This program would include medication management, Physical Therapy, consideration for interventional procedures as appropriate, and lifestyle modification (diet, weight loss, exercise, smoking/tobacco cessation, holistic approach including meditation and yoga). The patient understands and agrees prior to proceeding with this plan. _ __ __ __ __ __ __ __ __ __ __ __ __ __ __ __ __ __ __ __ __ __ __ __ __ __ __ __ _ RECORDS REVIEW: As per clinic policy, we will have the patient sign a release to obtain previous imaging and clinical notes. _ __ __ __ __ __ __ __ __ __ __ __ __ __ __ __ __ __ __ __ __ __ __ __ __ __ __ __ _ PSYCH: Pain affecting Neuro-psych behavior was discussed. Discussed about pain psychological counseling as a part of the multimodal approach to pain treatment. _ __ __ __ __ __ __ __ __ __ __ __ __ __ __ __ __ __ __ __ __ __ __ __ __ __ __ __ _ REHABILITATION: Discussed with the patient the importance of diet, daily physical activity and PT. Discussed with the patient the need to be scheduled for physical therapy since physical therapy will prolong the benefits of the procedure and interventions. _ __ __ __ __ __ __ __ __ __ __ __ __ __ __ __ __ __ __ __ __ __ __ __ __ __ __ __ _ DOTTIE: [id number] I have reviewed patient's DOTTIE report prior to prescribing Schedule II, III, and IV medications that require review by law. [email or web address] Not available 09/25/2023 12:14:44 11/20/2023 11/20/2023 Ms. Tobias has a history of lumbar degenerative disc disease/lumbar spondylosis, sacroiliitis, and diabetic neuropathy. The patient underwent a minimally-invasive left SI joint fusion in 04/2021 and a minimally-invasive right SI joint fusion in 07/2022. The patient also underwent a SCS implant x2 thoracic leads on 08/26/23. [email or web address] Not available 11/23/2023 18:11:20 12/25/2023 12/25/2023 Ms. Tobias has a history of lumbar degenerative disc disease/lumbar spondylosis, sacroiliitis, and diabetic neuropathy. The patient underwent a minimally-invasive left SI joint fusion in 04/2021 and a minimally-invasive right SI joint fusion in 07/2022. The patient also underwent a SCS implant x2 thoracic leads on 08/26/23. [email or web address] Not available 12/29/2023 09:52:41 Plan of Treatment Reminders Order Date Submit Date Provider Last Modified By Organization Details Last Modified Time Details Appointments OV EST 15 2024 08:15A M SAAD SAWANT PA-C Not available Not available Not available Lab None recorded. Referral physical therapist referral - The patient underwent SCS implantat ion on 08/26/23. Refer to PT with focus on the lumbar spine and BLE. 1-2x weekly for 4-6 weeks. 2023 024 TABBY Pradhan PT, [address] [place], [address], 11/19/2023 12:08:51 Procedures injection /aspirati on joint/bur sa (PROC) - Left ischial bursa injection . [address]. [id number]. 2023 024 [email or web address] Barak Gonzalez MD, [address], [address], [place], [address], 12/02/2023 11:22:18 Surgeries None recorded. Imaging None recorded. Medication Orders None recorded. Patient TargetsNo targets recorded. Patient Instructions Encounter Date Encounter Id Patient Instructions Last Modified By Organization Details Last Modified Time 11/20/2023 [id number] I counseled the patient extensively and informed of the risks of the procedure, including the risk of paralysis, nerve damage, respiratory arrest, arrhythmias, stroke, weakness, and infection, which although very low, could result in or disability. The patient acknowledged to me that they understand and accept these risks. RN EDUCATION Extensive coordination of care provided by RN to educate patient on upcoming procedure and to coordinate obtaining extensive incoming medical records. I have discussed in great detail our potential treatment options which would include a rehabilitative approach to care. This program would include medication management, Physical Therapy, consideration for interventional procedures as appropriate, and lifestyle modification (diet, weight loss, exercise, smoking/tobacco cessation, holistic approach including meditation and yoga). The patient understands and agrees prior to proceeding with this plan. _ __ __ __ __ __ __ __ __ __ __ __ __ __ __ __ __ __ __ __ __ __ __ __ __ __ __ __ _ RECORDS REVIEW: As per clinic policy, we will have the patient sign a release to obtain previous imaging and clinical notes. _ __ __ __ __ __ __ __ __ __ __ __ __ __ __ __ __ __ __ __ __ __ __ __ __ __ __ __ _ PSYCH: Pain affecting Neuro-psych behavior was discussed. Discussed about pain psychological counseling as a part of the multimodal approach to pain treatment. _ __ __ __ __ __ __ __ __ __ __ __ __ __ __ __ __ __ __ __ __ __ __ __ __ __ __ __ _ REHABILITATION: Discussed with the patient the importance of diet, daily physical activity and PT. Discussed with the patient the need to be scheduled for physical therapy since physical therapy will prolong the benefits of the procedure and interventions. _ __ __ __ __ __ __ __ __ __ __ __ __ __ __ __ __ __ __ __ __ __ __ __ __ __ __ __ _ DOTTIE: [id number] I have reviewed patient's DOTTIE report prior to prescribing Schedule II, III, and IV medications that require review by law. [email or web address] Not available 11/23/2023 18:11:18 12/25/2023 [id number] I counseled the patient extensively and informed of the risks of the procedure, including the risk of paralysis, nerve damage, respiratory arrest, arrhythmias, stroke, weakness, and infection, which although very low, could result in or disability. The patient acknowledged to me that they understand and accept these risks. RN EDUCATION Extensive coordination of care provided by RN to educate patient on upcoming procedure and to coordinate obtaining extensive incoming medical records. I have discussed in great detail our potential treatment options which would include a rehabilitative approach to care. This program would include medication management, Physical Therapy, consideration for interventional procedures as appropriate, and lifestyle modification (diet, weight loss, exercise, smoking/tobacco cessation, holistic approach including meditation and yoga). The patient understands and agrees prior to proceeding with this plan. _ __ __ __ __ __ __ __ __ __ __ __ __ __ __ __ __ __ __ __ __ __ __ __ __ __ __ __ _ RECORDS REVIEW: As per clinic policy, we will have the patient sign a release to obtain previous imaging and clinical notes. _ __ __ __ __ __ __ __ __ __ __ __ __ __ __ __ __ __ __ __ __ __ __ __ __ __ __ __ _ PSYCH: Pain affecting Neuro-psych behavior was discussed. Discussed about pain psychological counseling as a part of the multimodal approach to pain treatment. _ __ __ __ __ __ __ __ __ __ __ __ __ __ __ __ __ __ __ __ __ __ __ __ __ __ __ __ _ REHABILITATION: Discussed with the patient the importance of diet, daily physical activity and PT. Discussed with the patient the need to be scheduled for physical therapy since physical therapy will prolong the benefits of the procedure and interventions. _ __ __ __ __ __ __ __ __ __ __ __ __ __ __ __ __ __ __ __ __ __ __ __ __ __ __ __ _ DOTTIE: [id number] I have reviewed patient's DOTTIE report prior to prescribing Schedule II, III, and IV medications that require review by law. [email or web address] Not available 12/29/2023 09:53:30 Reason for Referral Physical Therapist Referral for Spinal stenosis of lumbar region The patient underwent SCS implantation on 08/26/23. Refer to PT with focus on the lumbar spine and BLE. 1-2x weekly for 4-6 weeks. Referring Physician: Saad Sawant, Pain Management, Encounter Date: 09/24/2023 Results Created Date Observation Date Name Description Value Unit Range Abnormal Flag Note LastModifiedBy Organization Detail LastModifiedTime 08/25/19 24 08/25/2023 CBC AUTO NO DIFF (HEMO GRAM) WBC 7.1 K/uL 4.0-10 .5 Not Available [facility] ([facility]) [address], [place], [address], 08/25/2023 10:01:02 08/25/19 24 08/25/2023 CBC AUTO NO DIFF (HEMO GRAM) RBC 5.0 M/mm3 4.2-6. 4 Not Available [facility] ([facility]) [address] , [place], [address], 08/25/2023 10:01:02 08/25/19 24 08/25/2023 CBC AUTO NO DIFF (HEMO GRAM) HGB 15.0 gm/dL 12.5-1 6.0 Not Available [facility] ([facility]) [address] , [place], [address], 08/25/2023 10:01:02 08/25/19 24 08/25/2023 CBC AUTO NO DIFF (HEMO GRAM) HCT 44.3 % 37.0-4 7.0 Not Available [facility] ([facility]) [address] , [place], [address], 08/25/2023 10:01:02 08/25/19 24 08/25/2023 CBC AUTO NO DIFF (HEMO GRAM) MCV 88.1 fL 78-100 Not Available [facility] ([facility]) [address] , [place], [address], 08/25/2023 10:01:02 08/25/19 24 08/25/2023 CBC AUTO NO DIFF (HEMO GRAM) MCH 29.8 pg 27-31 Not Available [facility] ([facility]) [address] , [place], [address], 08/25/2023 10:01:02 08/25/19 24 08/25/2023 CBC AUTO NO DIFF (HEMO GRAM) MCHC 33.9 g/dL 32-36 Not Available [facility] ([facility]) [address] , [place], [address], 08/25/2023 10:01:02 08/25/19 24 08/25/2023 CBC AUTO NO DIFF (HEMO GRAM) RDW 12.4 % 11.5-1 4.0 Not Available [facility] ([facility]) [address] [place], [address], 08/25/2023 10:01:02 08/25/19 24 08/25/2023 CBC AUTO NO DIFF (HEMO GRAM) platelet count 232 K/uL 150-45 0 Not Available [facility] ([facility]) [address], [place], [address], 08/25/2023 10:01:02 08/25/19 24 08/25/2023 CBC AUTO NO DIFF (HEMO GRAM) MPV 11.4 fL 6-9.5 high Not Available [facility] ([facility]) [address], [place], [address], 08/25/2023 10:01:02 08/25/19 24 08/25/2023 CBC AUTO NO DIFF (HEMO GRAM) manual differential NO Not Available [facility] ([facility]) [address] [address] , [place], [address], 08/25/2023 10:01:02 08/25/19 24 08/25/2023 COMP METAB OLIC PANEL sodium 138 mmol/ L 136-14 5 Not Available [facility] ([facility]) [address] , [place], [address], 08/25/2023 10:09:43 08/25/19 24 08/25/2023 COMP METAB OLIC PANEL potassium 4.1 mmol/ L 3.6-5. 0 Not Available [facility] ([facility]) [address] , [place], [address], 08/25/2023 10:09:43 08/25/19 24 08/25/2023 COMP METAB OLIC PANEL chloride 103 mmol/ L 98-107 Not Available [facility] ([facility]) [address] , [place], [address], 08/25/2023 10:09:43 08/25/19 24 08/25/2023 COMP METAB OLIC PANEL carbon dioxide 26.8 mmol/ L 21.0-3 2.0 Not Available [facility] ([facility]) [address] , [place], [address], 08/25/2023 10:09:43 08/25/19 24 08/25/2023 COMP METAB OLIC PANEL anion gap 12.3 Not Available [facility] ([facility]) [address] , [place], [address], 08/25/2023 10:09:43 08/25/19 24 08/25/2023 COMP METAB OLIC PANEL glucose 226 mg/dL 70-120 high Not Available [facility] ([facility]) [address] , [place], [address], 08/25/2023 10:09:43 08/25/19 24 08/25/2023 COMP METAB OLIC PANEL BUN 17 mg/dL 7-18 Not Available [facility] ([facility]) [address] , [place], [address], 08/25/2023 10:09:43 08/25/19 24 08/25/2023 COMP METAB OLIC PANEL creatinine 0.6 mg/dL 0.6-1. 3 Not Available [facility] ([facility]) [address] , [place], [address], 08/25/2023 10:09:43 08/25/19 24 08/25/2023 COMP METAB OLIC PANEL glomerular filtration rate >60 mlper min 60- Not Available [facility] ([facility]) [address] [place], [address], 08/25/2023 10:09:43 08/25/19 24 08/25/2023 COMP METAB OLIC PANEL total protein 7.2 g/dL 6.4-8. 2 Not Available [facility] ([facility]) [address] [place], [address], 08/25/2023 10:09:43 08/25/19 24 08/25/2023 COMP METAB OLIC PANEL albumin 3.8 g/dL 3.4-5. 0 Not Available [facility] ([facility]) [address], [place], [address], 08/25/2023 10:09:43 08/25/19 24 08/25/2023 COMP METAB OLIC PANEL globulin 3.4 Not Available [facility] ([facility]) [address] , [place], [address], 08/25/2023 10:09:43 08/25/19 24 08/25/2023 COMP METAB OLIC PANEL alb/glob ratio 1.1 0.7-2 Not Available [facility] ([facility]) [address] , [place], [address], 08/25/2023 10:09:43 08/25/19 24 08/25/2023 COMP METAB OLIC PANEL calcium 8.7 mg/dL 8.5-10 .5 Not Available [facility] ([facility]) [address] , [place], [address], 08/25/2023 10:09:43 08/25/19 24 08/25/2023 COMP METAB OLIC PANEL bilirubin total 0.50 mg/dL 0.10-1 .00 Not Available [facility] ([facility]) [address] , [place], [address], 08/25/2023 10:09:43 08/25/19 24 08/25/2023 COMP METAB OLIC PANEL AST (SGOT) 13 U/L 0-37 Not Available [facility] ([facility]) [address] , [place], [address], 08/25/2023 10:09:43 08/25/19 24 08/25/2023 COMP METAB OLIC PANEL ALT (SGPT) 29 U/L 0-65 Not Available [facility] ([facility]) [address], [place], [address], 08/25/2023 10:09:43 08/25/19 24 08/25/2023 COMP METAB OLIC PANEL alk phosphatase 143 U/L 46-116 high Not Available [facility] ([facility] [address], [place], [address], 08/25/2023 10:09:43 Result Notes None recorded. Problems Name Problem SNOMED Code Status Onset Date Resolution Date Notes Provider Name and Address Organization Details Recorded Time Bilateral sacroiliac joint pain 6532782610327 9104 Active 2022 Kimmie De La Rosa null, [place] [facility] - [place] & [place] 3 15:20:50 Spinal stenosis of lumbar region 41891414 Active 2022 Kimmie De [place] & [place] 3 15:20:58 Lumbar spondylosi s 479193316 Active 2022 Kimmie De [place] 3 15:21:06 Diabetes mellitus 03370412 Active 2022 Kimmie De [place] 3 15:21:22 Trochanter ic bursitis of right hip 7456213003619 00 Active 2022 Kimmie De [place] & [place] 3 15:21:38 Neck pain 36604668 Active 2022 Kimmie De [place] & [place] 3 15:21:48 Spinal enthesopat hy 46973906 Active 2022 Kimmie De [place] [facility] & [place] 3 15:21:57 Pain in right hip joint 8457940266087 02 Active 2022 Kimmie De [place] 3 15:22:03 Inflammati on of sacroiliac joint 72793603 Active 2022 Kimmie De [place] [facility] [place] 3 15:10:14 Myofascial pain 726983077 Active 2022 Kimmie De [place] [facility] [place] 3 08:35:08 Fall Active 2022 Kimmie De [place] [facility] [place] 3 08:35:10 Spinal enthesopat hy of lumbosacra l region Active 2022 Kimmie De [place] [facility] [place] 3 08:35:11 Paresthesi a of lower extremity 799160077 Active 2022 Sarahy Ramos DO [address], [place], [address] , [place] [facility] [place] & [place] 3 14:34:59 Problem Notes None recorded. Procedures Surgical History Date Name Laterality Status Provider Name and Address Organization Details Recorded Time 024 implantation of permanent spinal cord stimulator completed Marie LOO - [facility] & [place] 11/27/2023 11:32:55 023 EMG/ Nerve Conduction Study completed Sarahy Ramos DO [address], [place], [address], [place] [facility] [place] & [place] 10/14/2022 14:34:53 023 Injection Only completed SAAD SAWANT PA-C [address], [place], [address], [place] [facility] [place] 09/23/2022 12:50:23 023 fusion of sacroiliac joint by posterior approach completed Marie Jiménez [facility] - [place] & [place] 11/27/2023 11:31:13 022 fusion of sacroiliac joint by posterior approach completed Marie LOO - [facility] - [place] & [place] 11/27/2023 11:31:21 Hysterectomy completed [facility] - [facility] 03/21/2022 15:27:[address] [facility] & [place] 03/21/2022 15:27:54 ureterorenoscopy with fragmentation and removal of calculus of kidney completed [facility] 03/21/2022 15:28:16 Imaging Results None recorded. Procedure Notes None recorded. Medical Equipment None Reported. Allergies No known drug allergies Medications Name Sig Start Date Stop Date Status Note LastModified by Organization Details LastModified Time cyclobenzap rine 10 mg tablet 07/20 completed Not Available Not Available Not Available metformin 500 mg tablet Take 1 tablet twice a day by oral route as directed for 30 days. 08/09 completed Not Available Not Available Not Available promethazin e-DM 6.25 mg-15 mg/5 mL oral syrup TAKE 5 ML BY MOUTH EVERY 4 TO 6 HOURS NEEDED 01/28 completed Not Available Not Available Not Available doxycycline hyclate 100 mg capsule active Not Available Not Available N ot Available atorvastati n 20 mg tablet TAKE 1 TABLET BY MOUTH ONCE DAILY active Not Available Not Available No t Available azithromyci n 250 mg tablet active Not Available Not Available Not Available ibuprofen 800 mg tablet TAKE ONE TABLET BY MOUTH EVERY 8 HOURS --TAKE WITH FOOD-- 07/20 completed Not Available Not Available Not Available nystatin 100,000 unit/gram topical ointment 11/19 completed Not Available Not Available Not Available tizanidine 4 mg tablet Take 1 tablet 3 times a day by oral route as needed for 30 days. 07/20 completed Not Available Not Available Not Available fluconazole 150 mg tablet TAKE 1 TABLET BY MOUTH EVERY 72 HOURS FOR 3 DOSES 11/19 completed Not Available Not Available Not Available hydrocodone 5 mg-acetamin ophen 325 mg tablet TAKE 1 TABLET BY MOUTH EVERY 8 HOURS NEEDED FOR POST OP INCISIONA L PAIN 12/11 completed Not Available Not Available Not Available promethazin e 12.5 mg tablet TAKE ONE TABLET BY MOUTH THREE TIMES DAILY PRN active Not Available Not Available No t Available doxycycline hyclate 50 mg capsule TAKE 1 CAPSULE BY MOUTH ONCE DAILY WITH FOOD 05/05 completed Not Available Not Available Not Available amitriptyli ne 50 mg tablet TAKE 1 TABLET BY MOUTH AT BEDTIME active Not Available Not Available No t Available ketorolac 30 mg/mL (1 mL) injection solution Inject 30 mg by intramusc ular route as needed. 07/20 completed Not Available Not Available Not Available ketorolac 10 mg tablet 07/20 completed Not Available Not Available Not Available oxycodone-a cetaminophe n 5 mg-325 mg tablet TAKE 1 TABLET BY MOUTH EVERY 8 HOURS NEEDED FOR 4 DAYS FOR POST OP PAIN 11/19 completed Not Available Not Available Not Available amoxicillin 875 mg tablet TAKE 1 TABLET BY MOUTH TWICE DAILY 01/28 completed Not Available Not Available Not Available OneTouch Ultra Test strips 06/19 completed Not Available Not Available Not Available benzonatate 100 mg capsule TAKE 1 CAPSULE BY MOUTH EVERY 4 TO 6 HOURS NEEDED FOR COUGH 01/28 completed Not Available Not Available Not Available cephalexin 500 mg capsule active Not Available Not Available Not Available pantoprazol e 40 mg tablet,aniket yed release TAKE 1 TABLET BY MOUTH TWICE DAILY 07/20 completed Not Available Not Available Not Available lisinopril 10 mg tablet TAKE 1 TABLET BY MOUTH ONCE DAILY active Not Available Not Available No t Available lidocaine 5 % topical patch APPLY 1 PATCH TOPICALLY ONCE DAILY MAY WEAR UP TO 12 HOURS PRN active Not Available Not Available No t Available gabapentin 300 mg capsule Take 1 capsule twice a day by oral route as directed for 30 days. 05/05 completed Not Available Not Available Not Available Advil 200 mg tablet Take 1 tablet 3 times a day by oral route as needed for 30 days. 07/20 completed Not Available Not Available Not Available diclofenac sodium 75 mg tablet,aniket yed release Take 1 tablet twice a day by oral route as needed for 30 days. 05/05 completed Not Available Not Available Not Available mupirocin 2 % topical ointment active Not Available Not Available Not Available insulin lispro (U-100) 100 unit/mL subcutaneou s solution SLIDING SCALE DOSE SUBCUTANE OUSLY DIRECTED. USE WITH INSULIN PUMP. MAX DAILY DOSE OF 40 UNITS active Not Available Not Available No t Available lisinopril 10 mg-hydrochl orothiazide 12.5 mg tablet 1 tablet every day by oral route. active Not Available Not Available No t Available ibuprofen 600 mg tablet TAKE 1 TABLET BY MOUTH EVERY 6 HOURS NEEDED 12/11 completed Not Available Not Available Not Available oxycodone-a cetaminophe n 7.5 mg-325 mg tablet 07/20 completed Not Available Not Available Not Available Valium 10 mg tablet Take 1 tablet by mouth 1 hour prior to procedure 07/20 completed Not Available Not Available Not Available methylpredn isolone 4 mg tablets in a dose pack TAKE BY MOUTH DIRECTED ON INSIDE OF PACKAGE 01/28 completed Not Available Not Available Not Available ondansetron 4 mg disintegrat ing tablet DISSOLVE 1 TABLET IN MOUTH THREE TIMES DAILY NEEDED 01/28 completed Not Available Not Available Not Available metformin ER 500 mg tablet,exte nded release 24 hr TAKE 2 TABLETS BY MOUTH TWICE DAILY 08/09 completed Not Available Not Available Not Available metronidazo le 0.75 % topical gel active Not Available Not Available Not Available chlorhexidi ne gluconate 4 % topical liquid Apply 1 applicati on and wash thoroughl y for five minutes, paying special attention to the area(s) where your surgery will be performed , night before and morning of surgery 07/20 completed Not Available Not Available Not Available insulin lispro (U-100) 100 unit/mL subcutaneou s pen INJECT 8 UNITS UNDER THE SKIN INTO THE APPROPRIA TE AREA DIRECTED 3 TIMES A DAY. PLUS 1:50>150, MAX DAILY DOSE OF 30 UNITS. active Not Available Not Available No t Available cyclobenzap rine 5 mg tablet TAKE 1 TABLET BY MOUTH EVERY 12 HOURS FOR 15 DAYS 07/20 completed Not Available Not Available Not Available duloxetine 30 mg capsule,del ayed release TAKE 1 CAPSULE BY MOUTH TWICE DAILY active Not Available Not Available No t Available BD Ultra-Fine Mini Pen Needle 31 gauge x /16 USE 1 ONCE DAILY active Not Available Not Available No t Available pregabalin 100 mg capsule 07/20 completed Not Available Not Available Not Available Januvia 100 mg tablet Take 1 tablet every day by oral route as directed for 30 days. active Not Available Not Available No t Available levocetiriz ine 5 mg tablet 07/20 completed Not Available Not Available Not Available Vitamin D3 50 mcg (2,000 unit) capsule TAKE 1 CAPSULE BY MOUTH ONCE DAILY active Not Available Not Available No t Available Jardiance 10 mg tablet TAKE 1 TABLET BY MOUTH ONCE DAILY 07/20 completed Not Available Not Available Not Available Jardiance 25 mg tablet TAKE 1 TABLET BY MOUTH ONCE DAILY active Not Available Not Available No t Available Tresiba FlexTouch U-200 insulin 200 unit/mL (3 mL) subcutaneou s pen INJECT 46 UNITS UNDER THE SKIN INTO THE APPROPRIA TE AREA DIRECTED DAILY 07/20 completed Not Available Not Available Not Available Tresiba FlexTouch U-100 insulin 100 unit/mL (3 mL) subcutaneou s pen active Not Available Not Available Not Available Vraylar 3 mg capsule TAKE 1 CAPSULE BY MOUTH ONCE DAILY 07/20 completed Not Available Not Available Not Available Dexcom G6 Sensor device USE DIRECTED: CHANGE EVERY 10 DAYS active Not Available Not Available No t Available Dexcom G6 [employer]ist USE DIRECTED TO PACKAGE INSTRUCTI ONS active Not Available Not Available No t Available Dexcom G6 Transmitter device USE DIRECTED: CHANGE EVERY 3 MONTHS active Not Available Not Available No t Available Trulicity 3 mg/0.5 mL subcutaneou s pen injector INJECT 1 PEN ONCE A WEEK SUBCUTANE OUSLY DIRECTED 07/20 completed Not Available Not Available Not Available Trulicity 4.5 mg/0.5 mL subcutaneou s pen injector INJECT 1 SYRINGE SUBCUTANE OUSLY ONCE A WEEK 07/20 completed Not Available Not Available Not Available Ozempic 1 mg/dose (4 mg/3 mL) subcutaneou s pen injector 11/19 completed Not Available Not Available Not Available Ozempic 2 mg/dose (8 mg/3 mL) subcutaneou s pen injector active Not Available Not Available Not Available Omnipod 5 G6 Pods (Gen 5) subcutaneou s cartridge CHANGE POD EVERY 3 DAYS DIRECTED active Not Available Not Available No t Available Omnipod 5 G6 Intro Kit (Gen 5) subcutaneou s cartridge with controller USE DIRECTED active Not Available Not Available No t Available Mounjaro 5 mg/0.5 mL subcutaneou s pen injector active Not Available Not Available Not Available Mounjaro 2.5 mg/0.5 mL subcutaneou s pen injector INJECT 0.5 ML SUBCUTANE OUSLY ONCE A WEEK FOR 4 WEEKS 07/20 completed Not Available Not Available Not Available Ozempic 0.25 mg or 0.5 mg (2 mg/3 mL) subcutaneou s pen injector active Not Available Not Available Not Available Omnipod 5 G6-G7 Pods (Gen 5) subcutaneou s cartridge active Not Available Not Available Not Available Vitals Date Recorded Body height Body mass index (BMI) Body weight Body temperature Oxygen saturation Oxygen saturation in Arterial blood by Pulse oximetry Heart rate Systolic blood pressure Diastolic blood pressure Provider Name and Address Organization Details Last Updated DateTime 4 152.4 cm 31.2 kg/m2 73535.7 8 g 97.6 [degF] 90 % 90 % 85 /min 120 mm[Hg] 80 mm[Hg] Kristel Perkins [place] - [facility] & [place] 4 14:30:07 Date Recorded Body height Body mass index (BMI) Body weight Body temperature Oxygen saturation Oxygen saturation in Arterial blood by Pulse oximetry Heart rate Respiratory rate Systolic blood pressure Diastolic blood pressure Provider Name and Address Organization Details Last Updated DateTime 4 152.4 cm 31.2 kg/m2 77571.3 4 g 98.5 [degF] 98 % 98 % 80 /min 16 /min 130 mm[Hg] 86 mm[Hg] Jenna Kellogg [place] - [facility] [facility] & [place] 4 13:20:20 Date Recorded Body height Body mass index (BMI) Body weight Body temperature Oxygen saturation Oxygen saturation in Arterial blood by Pulse oximetry Heart rate Systolic blood pressure Diastolic blood pressure Provider Name and Address Organization Details Last Updated DateTime 4 152.4 cm 30.7 kg/m2 97059.7 2 g 97.9 [degF] 94 % 94 % 61 /min 122 mm[Hg] 84 mm[Hg] Justyna Montes De Oca [place] - [facility] & [place] 4 08:41:47 Date Recorded Body height Body mass index (BMI) Body weight Body temperature Oxygen saturation Oxygen saturation in Arterial blood by Pulse oximetry Heart rate Systolic blood pressure Diastolic blood pressure Provider Name and Address Organization Details Last Updated DateTime 4 152.4 cm 30.1 kg/m2 10557.2 2 g 97.8 [degF] 99 % 99 % 65 /min 129 mm[Hg] 86 mm[Hg] [facility] [place] - [facility] 4 10:21:10 Date Recorded Body height Body mass index (BMI) Body weight Body temperature Oxygen saturation Oxygen saturation in Arterial blood by Pulse oximetry Heart rate Systolic blood pressure Diastolic blood pressure Provider Name and Address Organization Details Last Updated DateTime 4 152.4 cm 29.5 kg/m2 67668.4 5 g 97.4 [degF] 97 % 97 % 94 /min 110 mm[Hg] 90 mm[Hg] [facility] [place] - [facility] 4 09:12:54 Social History None recorded. Functional Status None recorded. Mental Status None recorded. Family History Relationship Description Onset Age of this Age Resolved Age Notes LastModified by Organization Details LastModified Time Father Hypertensive disorder [email or web address] Not available 03/21 15:26:11 Father Diabetes mellitus [email or web address] Not available 12/08 09:04:03 Mother Hypertensive disorder [email or web address] Not available 03/21 15:26:17 Mother Coronary arterioscler osis [email or web address] Not available 12/08 09:04:03 Mother Cerebrovascu lar accident [email or web address] Not available 15:26:53 Mother Diabetes mellitus [email or web address] Not available 12/08 09:04:03 Mother Kidney disease [email or web address] Not available 03/21 15:27:26 Medical History Condition Response Coronary Artery Disease N None N Gout N Hernia N Head Trauma/Injury N Thyroid Problems N Depression Y COPD N Anemia N Ulcers N Heart Attack ([place]) N Anxiety Disorder N Diabetes Y Bleeding Disorder N Arthritis N Tuberculosis N AIDS/HIV N Acid Reflux (GERD) N Cancer N Back Problems Y Stroke N Asthma N Substance Abuse N Back Injury N High Cholesterol N Hepatitis N Liver Disease N Heart Disease N Headaches N Fibromyalgia N Hypertension N Osteoporosis N Kidney Disease N Gynecological HistoryNo gynecological history recorded. Obstetrics History GPAL:G 0 P 0 0 0 0 Past Encounters Encounter ID Performer Location Encounter Start Date Encounter Closed Date Diagnosis/Indication Diagnosis SNOMED-CT Code Diagnosis ICD10 Code [id number] SAAD SAWANT PA-C [facility] [address] [place] [id number] 4 04/25/2022 14:35:10 04/25/2022 15:41:31 Bilateral sacroiliac joint pain 1717490442 6030628 M53.3 Spinal kenneth nosis of lumbar region 30412113 M99.53 M48.061 Lumbar spondylosis 07075 0009 M47.816 Neck pain 86403246 M54.2 [id number] Barak Gonzalez MD [facility] [address] [place] [id number] 4 06/04/2022 08:02:22 06/04/2022 08:47:32 Bilateral sacroiliac joint pain 8603552836 1847539 M53.3 Spinal kenneth nosis of lumbar region 12336100 M99.53 M48.061 Lumbar spondylosis 81929 0009 M47.816 Neck pain 92729645 M54.2 [id number] Barak Gonzalez MD [facility] [address] [place] [id number] 4 07/02/2022 08:13:11 07/02/2022 08:50:35 Bilateral sacroiliac joint pain 1146385792 9723137 M53.3 Spinal kenneth nosis of lumbar region 24261726 M99.53 M48.061 Lumbar spondylosis 14120 0009 M47.816 Neck pain 41771358 M54.2 [id number] SADA SAWANT PA-C [facility] [address] [place] [id number] 4 07/15/2022 09:57:23 07/15/2022 10:45:36 Bilateral sacroiliac joint pain 4039109103 6237477 M53.3 Spinal kenneth nosis of lumbar region 96899628 M99.53 M48.061 Lumbar spondylosis 34219 0009 M47.816 Neck pain 38215327 M54.2 [id number] SAAD SAWANT PA-C [facility] [address] [id number] 4 07/24/2022 14:02:58 07/24/2022 14:35:19 Bilateral sacroiliac joint pain 4256176709 3839942 M53.3 Spinal kenneth nosis of lumbar region 88336006 M99.53 M48.061 Lumbar spondylosis 89104 0009 M47.816 Neck pain 77677539 M54.2 [id number] SAAD SAWANT PA-C [facility] [address] [id number] 4 08/09/2022 09:23:19 08/09/2022 09:55:51 Bilateral sacroiliac joint pain 6462210573 3175969 M53.3 Spinal kenneth nosis of lumbar region 92402109 M99.53 M48.061 Lumbar spondylosis 65186 0009 M47.816 Myofascial pain 85676406 9 M79.10 [id number] SAAD SAWANT PA-C [facility] [address] [id number] 4 08/13/2022 14:08:22 08/13/2022 14:50:47 Inflammation of sacroiliac joint 91547242 M46.1 Bilateral sacroiliac joint pain 9523454272 5062241 M53.3 Spinal kenneth nosis of lumbar region 96136421 M99.53 M48.061 Lumbar spondylosis 86552 0009 M47.816 Myofascial pain 60720450 9 M79.10 Fall [id number] W19.XXXA [id number] SAAD SAWANT PA-C [facility] [address] [id number] 4 09/09/2022 10:05:46 09/09/2022 10:53:44 Inflammation of sacroiliac joint 18121080 M46.1 Bilateral sacroiliac joint pain 1742347023 1025722 M53.3 Spinal kenneth nosis of lumbar region 00432592 M99.53 M48.061 Lumbar spondylosis 49238 0009 M47.816 Myofascial pain 12918540 9 M79.10 Fall W19.XXXA Spinal ent hesopathy of lumbosacral region 6459667313 33254 M46.07 [id number] SAAD SAWANT PA-C [facility] [address] [facility] e [address] [place] [id number] 4 09/19/2022 14:34:47 09/19/2022 15:26:18 Spinal enthesopathy of lumbosacral region 2707586683 44168 M46.07 [id number] SAAD SAWANT PA-C [facility] [address] [facility] [address] [place] [id number] 4 10/07/2022 08:06:36 10/07/2022 08:57:18 Inflammation of sacroiliac joint 13763953 M46.1 Bilateral sacroiliac joint pain 9997335895 9735134 M53.3 Spinal kenneth nosis of lumbar region 98185576 M99.53 M48.061 Lumbar spondylosis 34644 0009 M47.816 Myofascial pain 61445168 9 M79.10 Fall W19.XXXA Spinal ent hesopathy of lumbosacral region 2076541533 99814 M46.07 Pain of le ft hip joint 0286504136 20012 M25.552 [id number] DO ARAMIS Castillo [facility] [address] [facility],[address] [place] [address] 10/14/2022 13:20:45 10/14/2022 15:06:06 Paresthesia of lower extremity 289481036 R20.2 [id number] Barak Gonzalez MD [facility] [address] [facility] [address] [place] [id number] 4 10/29/2022 09:39:08 10/29/2022 10:42:14 Inflammation of sacroiliac joint 86641913 M46.1 Bilateral sacroiliac joint pain 8844260067 8248991 M53.3 Spinal kenneth nosis of lumbar region 42694635 M99.53 M48.061 Lumbar spondylosis 32140 0009 M47.816 Myofascial pain 44589407 9 M79.10 Fall W19.XXXA Spinal ent hesopathy of lumbosacral region 9479702946 44896 M46.07 Pain of le ft hip joint 4572920221 80655 M25.552 [id number] SUSAN CALIXTO [facility] [address] [id number] 4 11/26/2022 10:16:00 11/26/2022 12:42:07 Inflammation of sacroiliac joint [id number] M46.1 Bilateral sacroiliac joint pain [id number] 7507539 M53.3 Spinal kenneth nosis of lumbar region 29944799 M99.53 M48.061 Lumbar spondylosis 09443 0009 M47.816 Myofascial pain 32778336 9 M79.10 Fall W19.XXXA Spinal ent hesopathy of lumbosacral region 2597772725 65226 M46.07 Pain of le ft hip joint 7149470781 17871 M25.552 Trochanter ic bursitis of left hip 3777642215 61779 M70.62 [id number] SUSAN CALIXTO [facility] [address] [address] 12/11/2022 09:46:47 12/11/2022 11:21:49 Inflammation of sacroiliac joint 44315185 M46.1 Bilateral sacroiliac joint pain 8337289772 9710551 M53.3 Spinal kenneth nosis of lumbar region 60245845 M99.53 M48.061 Lumbar spondylosis 86581 0009 M47.816 Myofascial pain 16962922 9 M79.10 Fall W19.XXXA Spinal ent hesopathy of lumbosacral region 0296236204 95152 M46.07 Pain of le ft hip joint 9365956416 20991 M25.552 Trochanter ic bursitis of left hip 2876398678 30613 M70.62 [id number] SUSAN CALIXTO [facility] [address] [address] 01/28/2023 13:01:06 01/28/2023 14:23:48 Inflammation of sacroiliac joint 18265679 M46.1 Bilateral sacroiliac joint pain 6030761425 8205235 M53.3 Spinal kenneth nosis of lumbar region 49333045 M99.53 M48.061 Lumbar spondylosis 18325 0009 M47.816 Myofascial pain 87545948 9 M79.10 Fall W19.XXXA Spinal ent hesopathy of lumbosacral region 7481449255 48965 M46.07 Pain of le ft hip joint 6654807760 23390 M25.552 Trochanter ic bursitis of left hip 6906536646 86641 M70.62 [id number] Barak Gonzalez MD [facility] [address] [place] [address] 03/05/2023 08:00:30 03/05/2023 08:40:06 Inflammation of sacroiliac joint 46085193 M46.1 Bilateral sacroiliac joint pain 4727360831 7910785 M53.3 Spinal kenneth nosis of lumbar region 80206742 M99.53 M48.061 Lumbar spondylosis 94147 0009 M47.816 Myofascial pain 97834440 9 M79.10 Fall W19.XXXA Spinal ent hesopathy of lumbosacral region 3449337761 59741 M46.07 Pain of le ft hip joint 2819575589 06711 M25.552 Trochanter ic bursitis of left hip 9785975639 70192 M70.62 Neuropathy 632208547 G62 .9 [id number] SAAD SAWANT PA-C [facility] [address] [place] [address] 05/05/2023 08:56:46 05/05/2023 09:37:43 Inflammation of sacroiliac joint 19086284 M46.1 Bilateral sacroiliac joint pain 7867411948 6654258 M53.3 Spinal kenneth nosis of lumbar region 58835252 M99.53 M48.061 Lumbar spondylosis 95832 0009 M47.816 Myofascial pain 15875377 9 M79.10 Fall W19.XXXA Spinal ent hesopathy of lumbosacral region 2803879938 48424 M46.07 Pain of le ft hip joint 1658494798 60124 M25.552 Trochanter ic bursitis of left hip 6604635472 22729 M70.62 Neuropathy 766668544 G62 .9 [id number] SAAD SAWANT PA-C [facility] [address] [facility] [address] [place] [address] 06/23/2023 13:04:20 06/23/2023 14:42:51 Inflammation of sacroiliac joint 71844785 M46.1 Bilateral sacroiliac joint pain 2511964441 5797069 M53.3 Spinal kenneth nosis of lumbar region 05029050 M99.53 M48.061 Lumbar spondylosis 66892 0009 M47.816 Myofascial pain 68318715 9 M79.10 Fall W19.XXXA Spinal ent hesopathy of lumbosacral region 0682159023 93222 M46.07 Pain of le ft hip joint 4443425685 42030 M25.552 Trochanter ic bursitis of left hip 8285764284 21101 M70.62 Neuropathy 271037316 G62 .9 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 250674840 E11.40 Diabetic p eripheral neuropathy 307852823 E11.40 Complex re gional pain syndrome, type II, lower limb 035893466 G57.73 [id number] SAAD SAWANT PA-C [facility] [address] [place] [address] 07/29/2023 14:22:07 07/29/2023 15:03:23 Inflammation of sacroiliac joint 32206146 M46.1 Bilateral sacroiliac joint pain 2531670784 1302172 M53.3 Spinal kenneth nosis of lumbar region 99936980 M99.53 M48.061 Lumbar spondylosis 56616 0009 M47.816 Myofascial pain 83978549 9 M79.10 Fall W19.XXXA Spinal ent hesopathy of lumbosacral region 5676206527 27918 M46.07 Pain of le ft hip joint 5252427609 50029 M25.552 Trochanter ic bursitis of left hip 1271800320 94342 M70.62 Neuropathy 270499022 G62 .9 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 692956189 E11.40 Diabetic p eripheral neuropathy 446529844 E11.40 Complex re gional pain syndrome, type II, lower limb 409362078 G57.73 [id number] SAAD SAWANT PA-C [facility] [address] [place] [address] 09/02/2023 13:39:23 09/02/2023 14:17:42 Inflammation of sacroiliac joint 11305306 M46.1 Bilateral sacroiliac joint pain 3084944517 5858677 M53.3 Spinal kenneth nosis of lumbar region 83553709 M99.53 M48.061 Lumbar spondylosis 53799 0009 M47.816 Myofascial pain 77866365 9 M79.10 Fall 5115453 W19.XXXA Spinal ent hesopathy of lumbosacral region 4807130242 16061 M46.07 Pain of le ft hip joint 5593018535 06872 M25.552 Trochanter ic bursitis of left hip 0941745392 23188 M70.62 Neuropathy 391003309 G62 .9 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 752758382 E11.40 Diabetic p eripheral neuropathy 293437572 E11.40 Complex re gional pain syndrome, type II, lower limb 497560108 G57.73 [id number] SAAD SAWANT PA-C [facility] [address] [place] [address] 09/08/2023 13:07:34 09/08/2023 14:01:33 Inflammation of sacroiliac joint 99285483 M46.1 Bilateral sacroiliac joint pain 6419998063 8487507 M53.3 Spinal kenneth nosis of lumbar region 78261530 M99.53 M48.061 Lumbar spondylosis 65786 0009 M47.816 Myofascial pain 90839273 9 M79.10 Fall 0083847 W19.XXXA Spinal ent hesopathy of lumbosacral region 6457562690 15897 M46.07 Pain of le ft hip joint 8555939745 53802 M25.552 Trochanter ic bursitis of left hip 1516287258 18242 M70.62 Neuropathy 146211007 G62 .9 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 600098251 E11.40 Diabetic p eripheral neuropathy 103474123 E11.40 Complex re gional pain syndrome, type II, lower limb 673774394 G57.73 [id number] SAAD SAWANT PA-C [facility] [address] [place] [address] 09/24/2023 08:28:59 09/24/2023 09:10:29 Inflammation of sacroiliac joint 57497428 M46.1 Bilateral sacroiliac joint pain 7017133485 4431109 M53.3 Spinal kenneth nosis of lumbar region 82922210 M99.53 M48.061 Lumbar spondylosis 37175 0009 M47.816 Myofascial pain 89646084 9 M79.10 Fall 4384520 W19.XXXA Spinal ent hesopathy of lumbosacral region 9916564137 51011 M46.07 Pain of le ft hip joint 0976543751 76189 M25.552 Trochanter ic bursitis of left hip 1522697479 19485 M70.62 Neuropathy 878357511 G62 .9 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 842754996 E11.40 Diabetic p eripheral neuropathy 896311424 E11.40 Complex re gional pain syndrome, type II, lower limb 636226575 G57.73 [id number] SAAD SAWANT PA-C [facility] [address] [place] [address] 11/20/2023 10:10:38 11/20/2023 10:55:51 Spinal stenosis of lumbar region 90659184 M99.53 M48.061 Lumbar spondylosis 48526 0009 M47.816 Myofascial pain 98378966 9 M79.10 Neuropathy 901302416 G62 .9 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 524259215 E11.40 Complex re gional pain syndrome, type II, lower limb 805894490 G57.73 Ischial bursitis 6867012 03 M70.72 [id number] SAAD SAWANT PA-C [facility] [address] [place] [address] 12/25/2023 09:00:57 12/25/2023 09:33:57 Spinal stenosis of lumbar region 80978532 M99.53 M48.061 Lumbar spondylosis 51658 0009 M47.816 Myofascial pain 46058217 9 M79.10 Neuropathy 973732066 G62 .9 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 047401546 E11.40 Complex re gional pain syndrome, type II, lower limb 907240018 G57.73 Ischial bursitis 2582171 03 M70.72 Health Concerns Section Related Observation LastModified by Organization Detai ls LastModified Time None Recorded Concern Status LastModified by Organization Details LastModified Time None Recorded Advance Directives Directive None Recorded Payers Encounter Date Sequence Insurance Name Policy Number Policy Greenberg Covered Member ID Greenberg Member ID Guarantor Name 09/02/2023 1 [place] [facility] [employer] [id number] Safia Tobias [id number] Safia Tobias 09/08/2023 1 [place] [facility] [id number] Safia Tobias [id number] Safia Tobias 09/24/2023 1 [place] [facility] [id number] Safia Tobias [id number] Safia Tobias 11/20/2023 1 [place] [facility] [employer] [id number] Safia Tobias [id number] Safia Tobias 12/25/2023 1 [place] [facility] [employer] [id number] Safia Tobias [id number] Safia Tobias Notes Date Note Type Note Provider Name and Address Organization Details Recorded Time 09/02/2023 text/html Ms. Tobias has a history of lumbar degenerative disc disease/lumbar spondylosis, sacroiliitis, and diabetic neuropathy. The patient recently underwent a right foot surgery. The patient presents to the clinic today 1 week S/P SCS implant x2 thoracic leads for a post-op check. The patient reports experiencing significant (nearly 100% pain relief) improvement in pain and function similar to that of the trial period. The patient denies post-op complications or signs of infection. The patient is asking questions about post-op care/restrictions. Today the pain level is a 1/10. SAAD SAWANT PA-C [address] [place], [address], [facility] & [place] 09/03/2023 15:14:23 09/08/2023 text/html Ms. Tobias has a history of lumbar degenerative disc disease/lumbar spondylosis, sacroiliitis, and diabetic neuropathy. The patient recently underwent a right foot surgery. The patient presents to the clinic today 2 weeks S/P SCS implant x2 thoracic leads for a post-op check. The patient reports experiencing significant (nearly 100% pain relief) improvement in pain and function similar to that of the trial period. The patient expresses being happy with the success of the procedure. Today the pain level is a 9/10. SAAD SAWANT PA-C [address] [place], [address], [facility] & [place] 09/10/2023 11:07:08 09/24/2023 text/html Ms. Tobias has a history of lumbar degenerative disc disease/lumbar spondylosis, sacroiliitis, and diabetic neuropathy. The patient recently underwent a right foot surgery. The patient presents to the clinic today 1 month S/P SCS implant x2 thoracic leads for a post-op check. The patient reports experiencing significant (nearly 100% pain relief) improvement in pain and function similar to that of the trial period. The patient expresses being happy with the success of the procedure. Today the pain level is a 0/10. SAAD SAWANT PA-C [address] [place], [address], [facility] [place] 09/25/2023 12:16:32 11/20/2023 text/html Ms. Tobias has a history of lumbar degenerative disc disease/lumbar spondylosis, sacroiliitis, and diabetic neuropathy. The patient underwent a minimally-invasive left SI joint fusion in 04/2021 and a minimally-invasive right SI joint fusion in 07/2022. The patient also underwent a SCS implant x2 thoracic leads on 08/26/23. The patient presents to the clinic today to follow up post-PT. The patient states that PT has been beneficial, although she continues to complain of left buttock pain with intermittent radicular symptoms of the LLE, which worsens with prolonged sitting. The patient expresses being happy with the success of SCS therapy, noting that SCS therapy is controlling pain, which has led to a decrease/discontinu ance of medication(s) for depression. Today the pain level is a 0/10, but fluctuates higher (6 or more). SAAD SAWANT PA-C [address], [place], [address], [facility] [place] 11/23/2023 18:12:01 12/25/2023 text/html Ms. Tobias has a history of lumbar degenerative disc disease/lumbar spondylosis, sacroiliitis, and diabetic neuropathy. The patient underwent a minimally-invasive left SI joint fusion in 04/2021 and a minimally-invasive right SI joint fusion in 07/2022. The patient also underwent a SCS implant x2 thoracic leads on 08/26/23. The patient presents to the clinic today to follow up post-procedure. The patient is 3 weeks S/P left ischial bursa injection, which was successful in decreasing left buttock pain with intermittent radicular symptoms of the LLE by nearly 100%. Today the pain level is a 0/10. SAAD SAWANT PA-C [address], [place], [address], [facility] [place] 12/29/2023 09:53:48 OBGyn Episode No OBEpisode recorded.
--- OUTSIDE RECORDS SUMMARY | 2024-02-10 08:52 | XMS_ITS | Encounter Summary ---
Author Organization [facility] Address [address] [place] [address] Care Team Providers Care Lead Fabricator Name Role Phone iTffanie Rasheed Primary Care Provider [phone] Encounter Details Date Type Department Care Team (Latest Contact Info) Description 07/24/2021 Travel Social History Tobacco Use Types Packs/Day Years [...] AM EDT documented as of this encounter Plan of Treatment Upcoming Encounters Date Type Department Care Team (Late st Contact Info) Description 03/16/2024 2:30 PM EST Evaluation [facility] [address] [address] documented as of this encounter Visit Diagnoses Not on filedocumented in this encounter Care Teams Lead Fabricator Relationship Specialty Start Date End Date Tiffanie Rasheed PA [address] [place] [address] PCP - General 07/21/20 documented as of this encounter
--- OUTSIDE RECORDS SUMMARY | 2024-02-10 08:52 | XMS_ITS | Encounter Summary ---
Author Organization [facility] Address [address] [place] [address] Care Team Providers Care Media Analyst Name Role Phone Duke Esquivel DO Primary Care Provider Reason for Visit * Reason Comments Diabetes * Consultation (Routine) - Closed Specialty Diagnoses / Procedures Referred By Omi sands Referred To Contact Endocrinology Diagnoses Type 2 diabetes mellitus Duke Esquivel, DO [address] [facility] [address] [place] [address] Phone: tel: fax: [facility] [address] [address] Phone: tel: fax: Referral ID Status Reason Start Date Expiration Date Visits Re quested Visits Authorized [id number] Closed 06/20/2022 06/20/2023 1 1 Encounter Details Date Type Department Care Team (Late st Contact Info) Description 10/14/2022 10:00 AM EDT Office Visit [facility] [address] [place] [address] Helen Duong, [address] [facility] [address] [facility] [address] [place] [address] Type 2 diabetes mellitus with hyperglycemia, with long-term current use of insulin (Primary Dx); Mixed hyperlipidemia; Vaginal yeast infection; Irregular heart rhythm Social History Tobacco Use Types Packs/Day Years [...] on file documented as of this encounter Last Filed Vital Signs Vital Sign Reading Time Taken Comments Blood Pressure 132/74 10/14/2022 9:15 AM EDT Pulse 71 10/14/2022 9:15 AM EDT Temperature - - Respiratory Rate - - Oxygen Saturation 98% 10/14/2022 9:15 AM EDT Inhaled Oxygen Concentration - - Weight 62.6 kg (138 lb) 10/14/2022 9:15 AM EDT Height 152.4 cm (5') 10/14/2022 9:15 AM EDT Body Mass Index 26.95 10/14/2022 9:15 AM EDT documented in this encounter Patient Instructions * Patient Instructions* Helen Duong DO - 10/14/2022 10:00 AM EDT Please have the eye exam report faxed to [phone]. Increase tresiba to 46 units once daily. Increase trulicity to 3 mg weekly. Take humalog/novolog 8 units 15 minutes before meals plus extra if your blood sugar is high. If BG is 150-199: extra 1 units BG 200-249: extra 2 units BG 250-299: extra 3 units BG 300-349: extra 4 units BG 350+: extra 5 units. Call the office if your glucose levels are < 100 or > 250 often. documented in this encounter Progress Notes * Helen Duong DO - 10/14/2022 10:00 AM EDT Chief Complaint Patient presents with Diabetes Referring Provider Duke Esquivel HPI Safia Tobias is a 52 y.o. female had concerns including Diabetes. Diabetes was diagnosed about 20 years. Has been on insulin for years. Tells me she has DM2. Complications include neuropathy. Last ophtho exam was recent - within a few months. Current medications for diabetes include trulicity 1.5 mg weekly, tresiba 40 units once daily. Has been on same dose of trulicity for months +. She checks her blood sugar 4+ times per day, using Dexcom. Couldn't download today. Diet: Breakfast: doesn't often eat Lunch: sub sandwich on wheat bread, crackers with cheese, salad Dinner: varies, home cooked, chicken, sides Drinks: water, has quite all tea/soda (regular soda was years ago) Snacks: crackers Has a family history of CAD. Is on simvastatin 5 mg daily. Hasn't been on alternate statins. Past Medical History: Diagnosis Date Diabetes mellitus Hyperlipidemia Hypertension Migraine Peripheral neuropathy Past Surgical History: Procedure Laterality Date HYSTERECTOMY KIDNEY STONE SURGERY Family History Problem Relation Age of Onset Heart attack Mother Stroke Mother Diabetes Mother Hyperlipidemia Mother Dementia Mother Diabetes Father Hyperlipidemia Father Hypertension Father Heart disease Sister Diabetes Brother Social History Socioeconomic History Marital status: Tobacco Use Smoking status: Former Smokeless tobacco: Never Vaping Use Vaping Use: Never used Substance and Sexual Activity Alcohol use: Not Currently Drug use: Never Sexual activity: Yes Partners: Male No Known Allergies Current Outpatient Medications on File Prior to Visit Medication Sig Dispense Refill amitriptyline (ELAVIL) 50 MG tablet Take 1 tablet by mouth every night at bedtime. gabapentin (NEURONTIN) 300 MG capsule Take 1 capsule by mouth 2 (Two) Times a Day. lisinopril (PRINIVIL,ZESTRIL) 10 MG tablet Take 1 tablet by mouth Daily. OneTouch Ultra test strip 1 each by Other route Daily. simvastatin (ZOCOR) 5 MG tablet Take 1 tablet by mouth Daily. tiZANidine (ZANAFLEX) 4 MG tablet Take 1 tablet by mouth Daily As Needed. ubrogepant (ubrogepant) 50 MG tablet Take 1 at onset of migraine, may repeat in 2 hours x1 10 tablet 5 venlafaxine XR (EFFEXOR-XR) 150 MG 24 hr capsule Take 1 capsule by mouth Daily. Vraylar 1.5 MG capsule capsule Take 1 capsule by mouth Every Other Day. [DISCONTINUED] metFORMIN ER (GLUCOPHAGE-XR) 500 MG 24 hr tablet Take 1 tablet by mouth Daily With Breakfast. [DISCONTINUED] ondansetron (ZOFRAN) 4 MG tablet Take 1 tablet by mouth 3 (Three) Times a Day As Needed. [DISCONTINUED] Steglatro 15 MG tablet Take 1 tablet by mouth Every Morning. [DISCONTINUED] Tresiba FlexTouch 100 UNIT/ML solution pen-injector injection [DISCONTINUED] Trulicity 1.5 MG/0.5ML solution pen-injector No current facility-administered medications on file prior to visit. Review of Systems Constitutional: Positive for activity change and unexpected weight loss. HENT: Negative. Eyes: Negative. Respiratory: Negative. Cardiovascular: Positive for leg swelling. Endocrine: Negative. See HPI Genitourinary: Negative. Musculoskeletal: Positive for arthralgias, back pain, gait problem and myalgias. Skin: Negative. Allergic/Immunologic: Negative. Neurological: Positive for dizziness, weakness and headache. BP 132/74 Pulse 71 Ht 152.4 cm (60 ) Wt 62.6 kg (138 lb) SpO2 98% BMI 26.95 kg/m?? Physical Exam Cardiovascular: Pulses: Dorsalis pedis pulses are 1+ on the right side and 1+ on the left side. Musculoskeletal: Right foot: Bunion present. Feet: Right foot: Skin integrity: Skin integrity normal. Left foot: Skin integrity: Skin integrity normal. Comments: Diabetic Foot Exam Performed and Monofilament Test Performed Monofilament 0/5 bilaterally Constitutional: well developed; well nourished no acute distress ENT/Thyroid: no thyromegaly no palpable nodules Eyes: EOM intact Conjunctiva: clear Respiratory: breathing is unlabored clear to auscultation bilaterally Cardiovascular: Irregular rhythm, skipped beats every 3/4 beats, S1, S2 normal, no murmur, click, rub or gallop Chest: Not performed. Abdomen: Not performed. : Not performed. Musculoskeletal: negative findings: ROM of all joints is normal, no deformities present Skin: dry and warm Neuro: normal without focal findings, mental status, speech normal, alert and oriented x3 Psych: oriented to time, place and person, mood and affect are within normal limits LABS AND IMAGING HbA1c: Lab Results Component Value Date HGBA1C 11.8 10/14/2022 Glucose: Lab Results Component Value Date POCGLU 357 (A) 10/14/2022 06/18/2022 glucose 245, creatinine 0.56, GFR 109, LFTs normal, A1c 10.6 Assessment and Plan Diagnoses and all orders for this visit: 1. Type 2 diabetes mellitus with hyperglycemia, with long-term current use of insulin (Primary) Uncontrolled with hyperglycemia. A1c 11.8. Question if she is type 1. Complicated by neuropathy. No metformin due to history of GI intolerance. No SGLT-2 inhibitor due to uncontrolled diabetes and current chronic yeast infection. Consider in future if DM1 ruled out. Increase trulicity to 3 mg weekly. Increase tresiba to 46 units daily. Add humalog 8 units with meals plus 1:50>150. Will work to gradually lower glucose levels. Call if Bgs > 250 often. Labs today. MF updated today. Ophtho exam is UTD and pt will have the report faxed here. - POC Glucose, Blood - POC Glycosylated Hemoglobin (Hb A1C) - Dulaglutide (Trulicity) 3 MG/0.5ML solution pen-injector; Inject 0.5 mL under the skin into the appropriate area as directed Every 7 (Seven) Days. Dispense: 2 mL; Refill: 3 - Insulin Degludec (Tresiba FlexTouch) 200 UNIT/ML solution pen-injector pen injection; Inject 46 Units under the skin into the appropriate area as directed Daily. Dispense: 30 mL; Refill: 1 - Insulin Lispro, 1 Unit Dial, (HumaLOG KwikPen) 100 UNIT/ML solution pen- injector; Inject 8 Units under the skin into the appropriate area as directed 3 (Three) Times a Day. Plus 1:50>150, MDD 30units Dispense: 30 mL; Refill: 1 - Comprehensive Metabolic Panel - CBC (No Diff) - Microalbumin / Creatinine Urine Ratio - Urine, Clean Catch - TSH - C-Peptide - Glutamic Acid Decarboxylase - IA-2 Autoantibodies 2. Mixed hyperlipidemia On simvastatin 5 mg daily. Has not been on alternate and or higher doses. - Lipid Panel 3. Vaginal yeast infection Due to uncontrolled glucose levels. Prescription for Diflucan sent to the pharmacy. Start within a week or 2 as BGs are improving. - fluconazole (Diflucan) 150 MG tablet; Take 1 tablet by mouth Every 72 (Seventy-Two) Hours for 3 doses. Dispense: 3 tablet; Refill: 0 4. Irregular heart rhythm Incidentally noted irregular heart rhythm on auscultation. Skipped beat every 3- 4 beats. She is asymptomatic. Follow-up with PCP for EKG. Return in about 3 months (around 01/14/2023) for next scheduled follow up. The patient was instructed to contact the clinic with any interval questions or concerns. Helen Duong DO Mattress Maker Please note that portions of this note were completed with a voice recognition program. documented in this encounter Plan of Treatment Not on file documented as of this encounter Procedures Procedure Name Priority Date/Time Associated Diagnosis Comments IA-2 AUTOANTIBODIES Routine 10/14/2022 1 0:16 AM EDT Type 2 diabetes mellitus with hyperglycemia, with long-term current use of insulin MICROALBUMIN / CREATININE URINE RATIO Routine 10/14/2022 10:16 AM EDT Type 2 diabetes mellitus with hyperglycemia, with long-term current use of insulin GLUTAMIC ACID DECARBOXYLASE Routine 10/14/2022 10:16 AM EDT Type 2 diabetes mellitus with hyperglycemia, with long-term current use of insulin C-PEPTIDE Routine 10/14/2022 10:16 AM EDT Type 2 diabetes mellitus with hyperglycemia, with long-term current use of insulin CBC (NO DIFF) Routine 10/14/2022 10:16 AM EDT Type 2 diabetes mellitus with hyperglycemia, with long-term current use of insulin TSH Routine 10/14/2022 10:16 AM EDT Type 2 diabetes mellitus with hyperglycemia, with long-term current use of insulin LIPID PANEL Routine 10/14/2022 10:16 AM EDT Mixed hyperlipidemia COMPREHENSIVE METABOLIC PANEL Routine 10/14/2022 10:16 AM EDT Type 2 diabetes mellitus with hyperglycemia, with long-term current use of insulin POCT GLYCOSYLATED HEMOGLOBIN (HGB A1C) Routine 10/14/2022 9:32 AM EDT Type 2 diabetes mellitus with hyperglycemia, with long-term current use of insulin POCT GLUCOSE, BLD (NON STRIP) Routine 10/14/2022 9:32 AM EDT Type 2 diabetes mellitus with hyperglycemia, with long-term current use of insulin documented in this encounter Results * IA-2 Autoantibodies (10/14/2022 10:16 AM EDT) IA-2 Autoantibodies <7.5 U/mL 10/18 9:07 PM EDT [facility] Comment: Reference Range: <7.5 ?Negative > or = 7.5 ??Positive Blood Venipuncture / Unknown 10/14/2022 10:16 AM EDT 10/14/2022 10:16 AM EDT Narrative [facility] - 10/18/2022 9:07 PM EDT Performed at: ??01 - [facility] [address] [place] [address] ??[id number] [employer] Supervisor: Jose Rodriguez MD, Phone: ??[phone] Helen Duong DO LAB BLOOD ORDERABLES Delia l Result [facility] [address] [phone] * Glutamic Acid Decarboxylase (10/14/2022 10:16 AM EDT) JESSIKA-65 <5.0 0.0 - 5.0 U/mL 10/16/2022 5:08 PM EDT [facility] Blood Structure of left upper limb / Unknown Venipuncture / Unknown 10/14/2022 10:16 AM EDT 10/14/2022 10:16 AM EDT [facility]ative [facility] - 10/16/2022 5:08 PM EDT Performed at: ??01 - [address] ??[id number] [employer] Supervisor: Mitzy Ricci MD, Phone: ??[phone] Helen Rivera [facility] DO LAB BLOOD ORDERABLES Delia l Result Performing Organization Address [facility] [[email or web address]] Co de Phone Number [facility] [address] [place] [address], * C-Peptide (10/14/2022 10:16 AM EDT) C-Peptide 2.8 1.1 - 4.4 ng/mL 10/15/2022 12:10 PM EDT [facility] Comment:C-Peptide reference interval is for fasting patients. Blood Structure of left upper limb / Unknown Venipuncture / Unknown 10/14/2022 10:16 AM EDT 10/14/2022 10:16 AM EDT Narrative [facility] - 10/15/2022 12:10 PM EDT Performed at: ??01 - [address] ??[id number] [employer] Supervisor: Alfredo Crowley PhD, Phone: ??[phone] Helen Rivera [facility] DO LAB BLOOD ORDERABLES Delia l Result Performing Organization Address [facility] [[email or web address]] Co de Phone Number [facility] [address] [place] [address], * TSH (10/14/2022 10:16 AM EDT) TSH 1.030 0.270 - 4.200 uIU/mL 10/14/2022 6:55 PM EDT [facility] Blood Venipuncture / Unknown 10/14/2022 10:16 AM EDT 10/14/2022 10:16 AM EDT [facility] LAB BLOOD ORDERABLES Delia l Result Performing Organization Address City/[facility]/ZIP Co de Phone Number [facility]
[address] [place] [address], * Microalbumin / Creatinine Urine Ratio - Urine, Clean Catch (10/14/2022 10:16 AM EDT) Microalbumin/C reatinine Ratio 10/14/2022 7:27 PM EDT [facility] Comment:Unable to calculate Creatinine, Urine 50.4 mg/dL 10/14/2022 7:27 PM EDT [facility] Microalbumin, Urine <1.2 mg/dL 10/14/2022 7:27 PM EDT [facility] Urine Urine specimen obtained by clean catch procedure / Unknown Collection / Unknown 10/14/2022 10:16 AM EDT 10/14/2022 10:16 AM EDT [facility] URINE ORDERABLES Final Re sult Performing Organization Address City/[facility]/ZIP Co de Phone Number [facility]
[address] [place] [address], * (ABNORMAL) CBC (No Diff) (10/14/2022 10:16 AM EDT) Pathologist [facility] WBC 8.06 3.40 - 10.80 10*3/mm3 10/14/2022 2:22 PM EDT [facility] RBC 5.00 3.77 - 5.28 10*6/mm3 10/14/2022 2:22 PM EDT [facility] Hemoglobin 14.8 12.0 - 15.9 g/dL 10/14/2022 2:22 PM EDT [facility] Hematocrit 43.8 34.0 - 46.6 % 10/14/2022 2:22 PM EDT [facility] MCV 87.6 79.0 - 97.0 fL 10/14/2022 2:22 PM EDT [facility] MCH 29.6 26.6 - 33.0 pg 10/14/2022 2:22 PM EDT [facility] MCHC 33.8 31.5 - 35.7 g/dL 10/14/2022 2:22 PM EDT [facility] RDW 11.6(L) 12.3 - 15.4 % 10/14/2022 2:22 PM EDT [facility] RDW-SD 36.8(L) 37.0 - 54.0 fl 10/14/2022 2:22 PM EDT [facility] MPV 11.9 6.0 - 12.0 fL 10/14/2022 2:22 PM EDT [facility] Platelets 212 140 - 450 10*3/mm3 10/14/2022 2:22 PM EDT [facility] Blood Structure of left upper limb / Unknown Venipuncture / Unknown 10/14/2022 10:16 AM EDT 10/14/2022 10:16 AM EDT Helen Duong DO LAB BLOOD ORDERABLES Delia l Result [facility]
[address] [place] [address], * (ABNORMAL) Lipid Panel (10/14/2022 10:16 AM EDT) Total Cholesterol 181 0 - 200 mg/dL 10/14/2022 6:55 PM EDT [facility] Triglycerides 193(H) 0 - 150 mg/dL 10/14/2022 6:55 PM EDT [facility] HDL Cholesterol 51 40 - 60 mg/dL 10/14/2022 6:55 PM EDT [facility] LDL Cholesterol 97 0 - 100 mg/dL 10/14/2022 6:55 PM EDT [facility] VLDL Cholesterol 33 5 - 40 mg/dL 10/14/2022 6:55 PM EDT [facility] LDL/HDL Ratio 1.79 10/14/2022 6:55 PM EDT [facility] Blood Venipuncture / Unknown 10/14/2022 10:16 AM EDT 10/14/2022 10:16 AM EDT Narrative [facility] - 10/14/2022 6:55 PM EDT Cholesterol [...] ? 160-189 mg/dL Very High ?>189 mg/dL us Helen Duong DO LAB BLOOD ORDERABLES Delia duong Result [facility]
[address] [place] [address], * (ABNORMAL) Comprehensive Metabolic Panel (10/14/2022 10:16 AM EDT) Glucose 385(H) 65 - 99 mg/dL 10/14/2022 7:53 PM EDT [facility] BUN 15 6 - 20 mg/dL 10/14/2022 7:53 PM [facility] Creatinine 0.59 0.57 - 1.00 mg/dL 10/14/2022 7:53 PM [facility] Sodium 135(L) 136 - 145 mmol/L 10/14/2022 7:53 PM [facility] Potassium 4.1 3.5 - 5.2 mmol/L 10/14/2022 7:53 PM [facility] Chloride 98 98 - 107 mmol/L 10/14/2022 7:53 PM [facility] CO2 25.0 22.0 - 29.0 mmol/L 10/14/2022 7:53 PM [facility] Calcium 9.2 8.6 - 10.5 mg/dL 10/14/2022 7:53 PM [facility] Total Protein 6.8 6.0 - 8.5 g/dL 10/14/2022 7:53 PM [facility] Albumin 4.4 3.5 - 5.2 g/dL 10/14/2022 7:53 PM [facility] ALT (SGPT) 30 1 - 33 U/L 10/14/2022 7:53 PM [facility] AST (SGOT) 20 1 - 32 U/L 10/14/2022 7:53 PM [facility] Alkaline Phosphatase 222(H) 39 - 117 U/L 10/14/2022 7:53 PM [facility] Total Bilirubin 0.6 0.0 - 1.2 mg/dL 10/14/2022 7:53 PM [facility] Globulin 2.4 gm/dL 10/14/2022 7:53 PM [facility] A/G Ratio 1.8 g/dL 10/14/2022 7:53 PM [facility] BUN/Creatinine Ratio 25.4(H) 7.0 - 25.0 10/14/2022 7:53 PM T [facility] Anion Gap 12.0 5.0 - 15.0 mmol/L 10/14/2022 7:53 PM EDT [facility] eGFR 107.3 >60.0 mL/min/1.7 3 10/14/2022 7:53 PM EDT [facility] Blood Venipuncture / Unknown 10/14/2022 10:16 AM EDT 10/14/2022 10:16 AM EDT Narrative [facility] - 10/14/2022 7:53 PM EDT GFR Normal >60 Chronic Kidney Disease <60 Kidney Failure <15 Helen Duong DO LAB BLOOD ORDERABLES Delia l Result [facility]
[address] [place] [address], [place] [phone] * POC Glycosylated Hemoglobin (Hb A1C) (10/14/2022 9:32 AM EDT) Hemoglobin A1C 11.8 % [facility] Lot Number [id number] [facility] Expiration Date 02/19/24 [facility] Blood 10/14/2022 9:32 AM EDT us Helen Duong DO POINT OF CARE TEST ORDERA BLES Final Result [facility]
[address] [place] [address], [place] [phone] * (ABNORMAL) POC Glucose, Blood (10/14/2022 9:32 AM EDT) Glucose 357(A) 70 - 130 mg/dL Lot Number [id number] Expiration Date 05/05/23 Blood 10/14/2022 9:32 AM EDT us Helen Duong DO POINT OF CARE TEST ORDERA BLES Final Result documented in this encounter Visit Diagnoses Diagnosis Type 2 diabetes mellitus with hyperglycemia, with long-term current use of insulin- Primary Mixed hyperlipidemia Vaginal yeast infection Candidiasis of vulva and vagina Irregular heart rhythm documented in this encounter Care Teams Media Analyst Relationship Specialty Start Date End Date Duke Esquivel DO [address] [facility] [address] [place] [address] PCP - General Internal Medicine 08/16/20 documented as of this encounter
--- OUTSIDE RECORDS SUMMARY | 2024-02-10 08:52 | XMS_ITS | Encounter Summary ---
Author Organization [facility] Address [address] [place] [address] Care Team Providers Care Pharmaceutical Sales Name Role Phone Tiffanie Rasheed Primary Care Provider [phone] Reason for Referral * Consultation (Routine) - Authorized Specialty Diagnoses / Procedures Referred By Omi sands Referred To Contact Oral Surgery Diagnoses Closed fracture of tooth, initial encounter Corrina Belle DMD [address] [facility], [address] [place] [address] Phone: tel: fax: [facility] [address] [address] Phone: tel: fax: Referral ID Status Reason Start Date Expiration Date Visits Requested Visits Authorized [id number] Authorized Specialty Services Required 07/08/2025 1 1 Scheduling Instructions Please evaluate pt for and ext #18 due to large buccal cusp fracture. Reason for Visit * Reason Comments Dental Pain LL tooth cracked aft er eating a popcorn kernel this weekend. Encounter Details Date Type Department Care Team ([facility] Contact Info) Description 01/07/2024 8:15 AM EDT Office Visit [facility] [address] [place] [address] Care, Dentistry Urgent Closed fracture of tooth, initial encounter (Primary Dx) Social History Tobacco Use Types [...] Sign Reading Time Taken Comments Blood Pressure 150/88 01/07/2024 8:24 AM EDT Pulse 95 01/07/2024 8:24 AM EDT Temperature - - Respiratory Rate - - Oxygen Saturation - - Inhaled Oxygen Concentration - - Weight - - Height - - Body Mass Index - - documented in this encounter Miscellaneous Notes * Progress Notes - Noemí Joe N - 01/07/2024 8:15 AM EDT Images from the original note were not included. Urgent Care Assessment Chief Complaint Patient presents with Dental Pain LL tooth cracked after eating a popcorn kernel this weekend. Dental Pain This is a new problem. The current episode started in the past 7 days. The problem occurs daily. The problem has been gradually worsening. Pain scale: when eating and drinkning something cold, pain is described as a 10/10, but when just talking and hanging out, pain is very minimal if at all. The pain is moderate. Associated symptoms include thermal sensitivity. Treatments tried: pt reports swishing with salt water for discomfort and pain. The treatment provided mild relief. ROS Negative for: shortness of breath, chest pain, fever, and fatigue Positive for: no reported sympotoms Patient is alert, awake, and well oriented. Past Medical History: Diagnosis Date Anxiety Calculus of gallbladder without cholecystitis without obstruction Gall stones Depression Diabetes mellitus ([facility]) Personal history of other diseases of the circulatory system History of hypertension Personal history of other endocrine, nutritional and metabolic disease History of diabetes mellitus Personal history of urinary calculi History of renal calculi Current Outpatient Medications: Insulin Pen Needle 32G X 4 MM misc, USE DIRECTED 2 TIMES DAILY, Disp: , Rfl: New Medications Ordered This Visit Medications Insulin Pen Needle 32G X 4 MM misc Sig: USE DIRECTED 2 TIMES DAILY No Known Allergies Social History Tobacco Use Smoking Status Former Types: Cigarettes Smokeless Tobacco Never Patient reports no history of alcohol use. Visit Vitals BP (!) 150/88 Pulse 95 Smoking Status Former Clinical Exam: Extraoral: normal findings Intraoral: CC Area: LL mandible #18 Diagnostic Testing: Palpation: Untested Percussion: Untested Cold: untested - pt reports that drinking anything cold causes a sharp pain to the area and tooth. EPT: untested Mobility: Class 0 General Appearance: Swelling: No Remaining Dentition: in poor oral health Multiple Missing Teeth: Yes Additional Info: large amount of calculus build-up of noted on all teeth remaining in the oral cavity. Radiographic Exam: Film ordered: Panoramic film Date Ordered: 01/07/24 Radiographic Indications: Dental pain Location: Tooth #: 18 Radiographic Observations: large amalgam quaker in tooth #18 with large buccal cusp fracture to the mesial cusp Radiographic Interpretation/Diagnosis: entire mesial buccal cusp is missing with compromise to the remaining tooth structure on the buccal due to the amount of tooth structure remaining and the largeamalgam filling in the tooth. Assessment/Diagnosis: Tooth/teeth # : 18 Pulpal diagnosis: Symptomatic Irreversible Pulpitis Apical diagnosis: Normal apical tissues Other diagnosis: fractured mesial buccal cusp Plan/Procedure: Pt reported to [facility] with a large mesial buccal cusp fracture on tooth #18 from eating popcorn this weekend. This incident occurred on Friday. Since then, the pain has been slowly getting worse and patient reports not eating much due to the pain when trying to eat. Pt would like to just have the tooth extracted and is not interested in trying to save the tooth. After examination, extraction is the best option due to the limited amount of tooth structure left on the buccal and the large amalgam filling that is compromising the rest of the remaining tooth structure. A pano radiograph was taken and the patient was referred to OS for the extraction of #18. Recommendations: Referral to OS for the extraction of #18. Cosigned by Eladio Byrd DMD at 01/07/2024 4:55 PM EDT Associated attestation - Eladio Byrd DMD - 01/07/2024 4:55 PM EDT I was present with the dental student for the service. I personally examined the patient, authorized the procedures that were performed, and evaluated the performance of the procedure after it was completed. I have verified all of the dental student???s documentation for this encounter. documented in this encounter Plan of Treatment Upcoming Encounters Date Type Department Care Team (Late st Contact Info) Description 03/16/2024 2:30 PM EST Evaluation [facility] [address] [address] Scheduled Referrals Name Type Priority Associated Diagnoses Order Schedule Referral to Oral Maxillofacial Surgery Outpatient Referral Routine Closed fracture of tooth, initial encounter Expected: 01/07/2024, Expires: 07/07/2025 documented as of this encounter Procedures Procedure Name Priority Date/Time Associated Diagnosis Comments PANORAMIC RADIOGRAPHIC IMAGE Routine 01/07/2024 8:15 AM EDT Closed fracture of tooth, initial encounter LIMITED ORAL EVALUATION - PROBLEM FOCUSED Routine 01/07/2024 8:15 AM EDT Closed fracture of tooth, initial encounter documented in this encounter Visit Diagnoses Diagnosis Closed fracture of tooth, initial encounter- Primary documented in this encounter Additional Health Concerns Assessment Noted Time A Body Mass Index follow-up plan has been documented for the patient 01/07/2024 8:57 AM EDT documented as of this encounter Care Teams Pharmaceutical Sales Relationship Specialty Start Date End Date Tiffanie Rasheed PA [address] [facility] [place] [address] PCP - General 07/21/20 documented as of this encounter
--- OUTSIDE RECORDS SUMMARY | 2024-02-10 08:52 | XMS_ITS | Continuity of Care Document ---
Author Organization [facility] Address [address] [place] [address] Care Team Providers Care Cut Off Worker Name Role Phone CISCO BURK Primary Care Provider Assessment Encounter Date Assessment Date Assessment LastModified by Organization Details LastModified Time 12/25/2023 12/25/2023 Ms. Tobias has a history of lumbar degenerative disc disease/lumbar spondylosis, sacroiliitis, and diabetic neuropathy. The patient underwent a minimally-invas carrington left SI joint fusion in 04/2021 and a minimally-invas carrington right SI joint fusion in 07/2022. The patient also underwent a SCS implant x2 thoracic leads on 08/26/23. [email or web address] Not available 12/29/2023 09:52:41 Plan of Treatment Reminders Order Date Submit Date Provider Last Modified By Organization Details Last Modified Time Details Appointments OV EST 15 025 08:15AM JACKELIN SAWANT PA-C Not available Not available Not available Lab None record ed. Referral None record ed. Procedures None record ed. Surgeries None record ed. Imaging None record ed. Medication Orders None record ed. Patient TargetsNo targets recorded. Patient Instructions Encounter Date Encounter Id Patient Instructions Last Modified By Organization Details Last Modified Time 12/25/2023 [id number] I counseled the patient extensively and informed [...] __ __ __ __ __ _ DOTTIE: [id number] I have reviewed patient's DOTTIE report prior to prescribing Schedule II, III, and IV medications that require review by law. [email or web address] Not available 12/29/2023 09:53:30 Reason for Referral None Reported. Problems Name Problem SNOMED Code Status Onset Date Resolution Date Notes Provider Name and Address Organization Details Recorded Time Bilateral sacroiliac joint pain 6153910262330 9104 Active 2022 CINDA [place] & [place] 3 15:20:50 Spinal stenosis of lumbar region 01642186 Active 2022 Kimmie De [place] Rosa null, [place] - [facility] - [place] & [place] 3 15:20:58 Lumbar spondylosi s 975474036 Active 2022 Kimmie De [place] Rosa null, [place] [facility] [place] & [place] 3 15:21:06 Diabetes mellitus 94349704 Active 2022 Kimmie De [place] null, [place] [facility] [place] & [place] 3 15:21:22 Trochanter ic bursitis of right hip 7378186572054 00 Active 2022 Kimmie De [place] null, [place] [facility] [place] & [place] 3 15:21:38 Neck pain 94107482 Active 2022 Kimmie De [place] null, [place] [facility] [place] & [place] 3 15:21:48 Spinal enthesopat hy 97678142 Active 2022 Kimmie De [place] Rosa null, [place] - [facility] [place] & [place] 3 15:21:57 Pain in right hip joint 5709720094704 02 Active 2022 Kimmie De [place] Rosa null, [place] [facility] [place] & [place] 3 15:22:03 Inflammati on of sacroiliac joint 66606110 Active 2022 Kimmie De [place] null, [place] [facility] [place] & [place] 3 15:10:14 Myofascial pain 664235637 Active 2022 Kimmie De [place] null, [place] [facility] [place] & [place] 3 08:35:08 Fall Active 2022 Kimmie De [place] null, [place] [facility] [place] & [place] 3 08:35:10 Spinal enthesopat hy of lumbosacra l region Active 2022 Kimmie De [place] null, [place] [facility] [place] & [place] 3 08:35:11 Paresthesi a of lower extremity 444412928 Active 2022 Sarahy Ramos DO [address], [place], [address] , [facility] & [place] 14:34:59 Problem Notes None recorded. Procedures Surgical History Date Name Laterality Status Provider Name and Address Organization Details Recorded Time 024 implantation of permanent spinal cord stimulator completed Marie Kitty [facility] & [place] 11/27/2023 11:32:55 023 EMG/ Nerve Conduction Study completed Sarahy Ramos DO [address], [place], [address], [facility] & [place] 10/14/2022 14:34:53 023 Injection Only completed JACKELIN SAWANT PA-C [address], [place], [address], [facility] & [place] 09/23/2022 12:50:23 023 fusion of sacroiliac joint by posterior approach completed [facility] & [place] 11/27/2023 11:31:13 022 fusion of sacroiliac joint by posterior approach completed [facility] & [place] 11/27/2023 11:31:21 Hysterectomy completed [facility] & [place] 03/21/2022 15:27:45 Hernia Repair completed [facility] & [place] 03/21/2022 15:27:54 ureterorenoscopy with fragmentation and removal of calculus of kidney completed [facility] & [place] 03/21/2022 15:28:16 Imaging Results None recorded. Procedure [...] Ultra-Fine Mini Pen Needle 31 gauge x 3/16 USE 1 ONCE DAILY active Not Available [...] Not Available No t Available Dexcom G6 Wood Car Builder USE DIRECTED TO PACKAGE INSTRUCTI ONS active [...] Updated DateTime 4 152.4 cm 29.5 kg/m2 94445.4 5 g 97.4 [degF] 97 % 97 % 94 /min 110 mm[Hg] 90 mm[Hg] Justyna Montes De Oca [place] - [facility] - [place] & [place] 09:12:54 Social History None recorded. Functional Status None recorded. Mental Status None recorded. Family History Relationship Description Onset Age of this Age Resolved Age Notes LastModified by Organization Details LastModified Time Father Hypertensive disorder Not available 03/21 15:26:11 Father Diabetes mellitus [email or web address] Not available 12/08 09:04:03 Mother Hypertensive disorder Not available 03/21 15:26:17 Mother Coronary arterioscler osis [email or web address] Not available 12/08 09:04:03 Mother Cerebrovascu lar accident [email or web address] Not available 15:26:53 Mother Diabetes mellitus [email or web address] Not available 12/08 09:04:03 Mother Kidney disease [email or web address] Not available 03/21 15:27:26 Medical History Condition Response Coronary Artery Disease N None N Gout N Head Trauma/Injury N Hernia N Thyroid Problems N Depression Y COPD N Anemia N Ulcers N Heart Attack (NE) N Anxiety Disorder N Diabetes Y Bleeding Disorder N Arthritis N Tuberculosis N AIDS/HIV N Acid Reflux (GERD) N Cancer N Back Problems Y Stroke N Asthma N Substance Abuse N Back Injury N High Cholesterol N Hepatitis N Liver Disease N Heart Disease N Fibromyalgia N Headaches N Hypertension N Osteoporosis N Kidney Disease N Gynecological HistoryNo gynecological history recorded. 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 943101578 E11.40 Complex re gional pain syndrome, type II, lower limb 357841875 G57.73 Ischial bursitis 4650550 03 M70.72 Health Concerns Section Related Observation LastModified by Organization Detai ls LastModified Time None Recorded Concern Status LastModified by Organization Details LastModified Time None Recorded Payers Encounter Date Sequence Insurance Name Policy Number Policy Greenberg Covered Member ID Greenberg Member ID Guarantor Name 12/25/2023 1 [place] [id number] Safia Tobias [id number] Safia Tobias Notes Date Note Type Note Provider Name and Address Organization Details Recorded Time 12/25/2023 text/html Ms. Tobias has a history [...] Today the pain level is a 0/10. JACKELIN SAWANT PA-C [address], [place], [address], [facility] - [place] - [place] & [place] 12/29/2023 09:53:48 OBGyn Episode No OBEpisode recorded.
--- OUTSIDE RECORDS SUMMARY | 2024-02-10 08:52 | XMS_ITS | Encounter Summary ---
[facility] Organization [facility] Address [address] [place] [id number] Care Team Providers Care Grinder Name Role Phone Duke Esquivel DO Primary Care Provider Encounter Details Date Type Department Care Team (Late st Contact Info) Description 10/15/2022 Telephone [facility] END[facility] [address] [place] [address] Helen Duong, [address] [place] [address] Social History Tobacco Use Types Packs/Day Years [...] encounter Miscellaneous Notes * Telephone Encounter - Shelby Rebolledo MA - 10/15/2022 3:29 PM EDTSummary: Trulicity Dr Esquivel has the patient on 4.[address] Duong just prescribed the 3.5 mg Trulicity. The patient and the pharmacist are confused on exactly which dosage is the correct one. If patient is at work it is OK to leave a message on her mobile phone. documented in this encounter Plan of Treatment Not on file documented as of this encounter Visit Diagnoses Not on filedocumented in this encounter Care Teams Grinder Relationship Specialty Start Date End Date Duke Esquivel DO [address] [facility] [address] [place] [address] PCP - General Internal Medicine 08/16/20 documented as of this encounter
--- OUTSIDE RECORDS SUMMARY | 2024-02-10 08:52 | XMS_ITS | Encounter Summary ---
Author Organization [facility] Address [address] [place] [address] Care Team Providers Care Hand Crocheter Name Role Phone Tiffanie Rasheed Primary Care Provider [phone] Encounter Details Date Type Department Care Team (Late Contact Info) Description 04/04/2021 10:00 AM EST Office Visit [facility] Interventional Pain Medicine [address] [place] [address] Max Rodriguez, PhD [address] [facility] [address] [place] [address] Psychological factors affecting medical condition (Primary Dx); Grief reaction; Chronic pain syndrome Social History Tobacco Use Types Packs/Day Years Used Date Smoking Tobacco: Never Alcohol Use Standard Drinks/Week Comments No 0 (1 standard drink = 0.6 oz pur e alcohol) Comments Unknown Sex and Gender Information Value Date Recorded Sex Assigned at Not on file Legal Sex Female 7:44 PM EDT Gender Identity Not on file Sexual Orientation Not on file COVID-19 Exposure Response Date Recorded In the last month, have you been in contact with someone who was confirmed or suspected to have Coronavirus / COVID-19? No / Unsure 04/04/2021 1:56 PM EST documented as of this encounter Plan of Treatment Upcoming Encounters Date Type Department Care Team (Late st Contact Info) Description 03/16/2024 2:30 PM EST Evaluation [facility] [address] [address] documented as of this encounter Visit Diagnoses Diagnosis Psychological factors affecting medical condition- Primary Psychic factors associated with diseases classified elsewhere Grief reaction Adjustment disorder with depressed mood Chronic pain syndrome documented in this encounter Care Teams Hand Crocheter Relationship Specialty Start Date End Date Tiffanie Rasheed PA [address] [place] [address] PCP - General 07/21/20 documented as of this encounter
--- OUTSIDE RECORDS SUMMARY | 2024-02-10 08:52 | XMS_ITS | Clinical Summary ---
Author Organization [facility] Address [address] [place] [address] Care Team Providers Care Building Official Name Role Phone Tiffanie Rasheed Primary Care Provider [phone] Allergies No known active allergies Medications Insulin Pen Needle 32G X 4 MM misc USE DIRECTED 2 TIMES DAILY 03/08/2019 Active Active Problems No known active problems Encounters Date Type Department Care Team Description 01/07/2024 8:15 AM EDT [facility] [address] [place] [address] Care, Dentistry Urgent Closed fracture of tooth, initial encounter (Primary Dx) 01/07/2024 Travel from Last 3 Months Family History Medical History Relation Name Comments Diabetes Father Hypertension Father Diabetes Mother Heart attack Mother Hypertension Mother Stroke Mother Diabetes Other 1 Hypertension Other 2 Hyperlipidemia Other 3 Heart murmur Sibling 1 Heart attack Sibling 2 Relation Name Status Comments Father Mother Other 1 Other 2 Other 3 Sibling 1 Sibling 2 Social History Tobacco Use Types Packs/Day Years [...] Pulse 95 01/07/2024 8:24 AM EDT Temperature 36.9 ??C (98.4 ??F) 12/03/2018 8:36 AM ED T Respiratory Rate - - Oxygen Saturation - - Inhaled Oxygen Concentration - - Weight 75.7 kg (166 lb 14.2 oz) 019 10:37 AM EST Height 154.9 cm (5' 1 ) 01/05/2018 2:26 PM EDT Body Mass Index 31.53 01/05/2018 2:26 PM EDT Plan of Treatment Upcoming Encounters Date Type Department Care Team (Late st Contact Info) Description 03/16/2024 2:30 PM EST Evaluation [facility] [address] [address] Health Maintenance Due Date Last Done Comments Dental Oral Exam 1968 Dental Prophylaxis 1968 Dental X-Ray: Bitewings 1968 [facility]-Depression Screening 1968 [facility]-HIV Screening 1968 [facility]-Hepatitis C Screening 1968 [facility]-/Child/Adol SDOH Screenings 1968 [facility]- SDOH Screenings 1986 [facility]-Adult SDOH Screenings 1986 [facility]-DTaP,Tdap,and Td Vaccine s (1 - Tdap) 09/25/1989 09/24/1989 CT Colonography 2013 Colonoscopy 2013 FIT-DNA 2013 FIT 2013 FOBT 2013 Sigmoidoscopy 2013 [facility]-Colorectal Cancer Screening 2013 [facility]-Breast Cancer Screening 2018 [facility]-Zoster Vaccines (1 of 2) 2018 [facility]-AODRP-64 Vaccine ( season) 2023 04/02/2021, 09/02/2020, 08/04/2020 [facility]-Influenza Vaccine (#1) 11/09/202305/20, 12/25/2016 Dental X-Ray: Full Mouth 01/07/2027 01/07/2024 [facility]-RSV Vaccine: 60+ Years o r (1 - 1-dose 75+ series) 08/02/2043 [facility]-Hepatitis B Vaccines Completed 009, 09/17/2007, 08/06/2007 [facility]-Hepatitis A Vaccines Aged Out 019, 02/23/2018 No longer eligible based on patient's age to complete this topic [facility]-HIB Vaccines Aged Out No longer e ligible based on patient's age to complete this topic [facility]-HPV Vaccines Aged Out No longer e ligible based on patient's age to complete this topic [facility]-IPV Vaccines Aged Out No longer e ligible based on patient's age to complete this topic [facility]-Pneumococcal Vaccine: Pediatrics (0 to 5 Years) and At-Risk Patients (6 to 64 Years) Aged Out No longer eligible b ased on patient's age to complete this topic [facility]-Rotavirus Vaccines Aged Out No lo nger eligible based on patient's age to complete this topic Procedures Procedure Name Priority Date/Time Associated Diagnosis Comments PANORAMIC RADIOGRAPHIC IMAGE Routine 01/07/2024 8:15 AM EDT Closed fracture of tooth, initial encounter LIMITED ORAL EVALUATION - PROBLEM FOCUSED Routine 01/07/2024 8:15 AM EDT Closed fracture of tooth, initial encounter from Last [address] [place] [address] [employer] MEDICAID O DENTAQUEST Care Teams Building Official Relationship Specialty Start Date End Date Tiffanie Rasheed PA [address] [place] [address] PCP - General 07/21/20
--- OUTSIDE RECORDS SUMMARY | 2024-02-10 08:52 | XMS_ITS | Encounter Summary ---
Author Organization [facility] Address [address] [place] [address] Care Team Providers Care Nursery Attendant Name Role Phone Tiffanie Rasheed Primary Care Provider [phone] Encounter Details Date Type Department Care Team (Latest Contact Info) Description 01/07/2024 Travel Social History Tobacco Use Types Packs/Day [...] on file documented as of this encounter Plan of Treatment Upcoming Encounters Date Type Department Care Team (Late st Contact Info) Description 03/16/2024 2:30 PM EST Evaluation [facility] [address] [address] documented as of this encounter Visit Diagnoses Not on filedocumented in this encounter Additional Health Concerns Assessment Noted Time A Body Mass Index follow-up plan has been documented for the patient 01/07/2024 8:57 AM EDT documented as of this encounter Care Teams Nursery Attendant Relationship Specialty Start Date End Date Tiffanie Rasheed PA [address] [place] [address] PCP - General 07/21/20 documented as of this encounter
--- OUTSIDE RECORDS SUMMARY | 2024-02-10 08:52 | XMS_ITS | Encounter Summary ---
Author Organization [facility] Address [address] [place] [address] Care Team Providers Care Health Care Technician Name Role Phone Tiffanie Rasheed Primary Care Provider [phone] Encounter Details Date Type Department Care Team (Latest Contact Info) Description 04/04/2021 Travel Social History Tobacco Use Types Packs/Day [...] Description 03/16/2024 2:30 PM EST Evaluation [facility] [address] [address] documented as of this encounter Visit Diagnoses Not on filedocumented in this encounter Care Teams Health Care Technician Relationship Specialty Start Date End Date Tiffanie Rasheed PA [address] [place] [address] PCP - General 07/21/20 documented as of this encounter
--- OUTSIDE RECORDS SUMMARY | 2024-02-10 08:52 | XMS_ITS | Encounter Summary ---
Author Organization [facility] Address [address] [place] [address] Care Team Providers Care Cloth Winding Supervisor Name Role Phone Tiffanie Rasheed Primary Care Provider [phone] Reason for Visit * Reason Comments Med Refill Encounter Details Date Type Department Care Team (Late st Contact Info) Description 11/19/2020 Refill [facility] Endocrinology [address], [address] [place] [address] Shelby Sapp, HAND OR MACHINE PASTER [address] [place] [address] Social History Tobacco Use Types Packs/Day Years [...] Description 03/16/2024 2:30 PM EST Evaluation [facility] [address] [place] [address] documented as of this encounter Visit Diagnoses Not on filedocumented in this encounter Care Teams Cloth Winding Supervisor Relationship Specialty Start Date End Date Tiffanie Rasheed PA [address] [place] [address] PCP - General 07/21/20 documented as of this encounter
--- OUTSIDE RECORDS SUMMARY | 2024-02-10 08:52 | XMS_ITS | Encounter Summary ---
Author Organization [facility] Address [address] [place] [address] Care Team Providers Care Buckle Sewer Machine Name Role Phone Duke Esquivel DO Primary Care Provider Reason for Referral * Consultation (Routine) - Closed Specialty Diagnoses / Procedures Referred By Contac t Referred To Contact Diagnoses Syncope and collapse Swathi Sahni APRN [address] [facility] [address] [place] [address] Phone: tel: fax: Duke Hewitt MD [address] [facility] [address] [place] [address] Phone: tel: fax: Referral ID Status Reason Start Date Expiration Date Visits Requested Visits Authorized [id number] Closed Patient Preference 08/16/2020 08/16/2021 1 1 Reason for Visit * Reason Comments Headache * Consultation (Routine) - Closed Specialty Diagnoses / Procedures Referred By Contac t Referred To Contact Neurology Diagnoses Headache Duke Esquivel DO [address] [facility] [address] [place] [address] Phone: tel: fax: [facility] [address] [facility] [address] [place] [address] Phone: tel: fax: Referral ID Status Reason Start Date Expiration Date Visits Re quested Visits Authorized [id number] Closed 06/28/2020 06/28/2021 1 1 Encounter Details Date Type Department Care Team (Late st Contact Info) Description 08/16/2020 9:30 AM EDT Office Visit [facility] NEUR[facility] [address] [address] Swathi Sahni, BLAYNE [address] [place] [address] Syncope and collapse (Primary Dx); New onset headache Social History Tobacco Use Types Packs/Day Years [...] Sign Reading Time Taken Comments Blood Pressure 130/90 08/16/2020 9:57 AM EDT Pulse 93 08/16/2020 9:57 AM EDT Temperature 36.4 ??C (97.5 ??F) 08/16/2020 9:57 AM ED T Respiratory Rate - - Oxygen Saturation 98% 08/16/2020 9:57 AM EDT Inhaled Oxygen Concentration - - Weight 68.5 kg (151 lb) 08/16/2020 9:57 AM EDT Height 152.4 cm (5') 08/16/2020 9:57 AM EDT Body Mass Index 29.49 08/16/2020 9:57 AM EDT documented in this encounter Progress Notes * Swathi Sahni, BLAYNE - 08/16/2020 9:30 AM EDT Subjective: Patient ID: Safia Tobias is a 50 y.o. female. CC: Chief Complaint Patient presents with ??? Headache HPI: History of Present Illness Ms. Tobias is a 50-year-old female here today for initial neurological evaluation for headaches. Shetells me that she first started having regular headaches about 3 months ago. She typically has somedegree of headache in her occiput every day, intensity of headaches waxes and wanes. She is experiencing a radiation of pain into the parietal region of her head with a numb spot on her scalp. About once or twice a week she will have a more intense headache that seems to be holoacranial with associated photo and phonophobia. With these headaches she typically has to go lie down in a dark room. Otherwise her headaches are described as a pressure sensation. With her headache she has no associated visual scotoma or aura, she denies facial paresthesia, facial droop or slurred speech. Her headaches mostly are mild to moderate but bothersome. She had mentioned also to her primary care that she has passed out twice in the last several months. The first about 2 or 3 months ago when she was in [facility], she passed out with no warning, she says she did not fall and hit her head, she cannot really give any other description of the incident. About 1 month after that she was getting out of her car to carry groceries inside and she apparently passed out hitting the ground, she states that she was only out for a couple seconds and recovered fairly quickly going into her house and putting her groceries away. She had no precursor or symptoms prior to passing out. She has never had any seizures. She denies obvious palpitations. She had a heart cath about a year or 2 ago which was reportedly normal, this was performed by Dr. Hewitt and Rosita Palma. She is diabetic, she reports her last hemoglobin A1c was 11.7%. She has a history of diabetic neuropathy, she has been off and on gabapentin. She recently restarted gabapentin August 04, 2020 at 300 mg twice a day through her PCP. She is also on amitriptyline 50 mg at night along with other antidepressants prescribed for severe depression. She previously saw psychiatry and they released her care. She admits that she takes ibuprofen most days for various reasons, she hydrates well by report. She denies any visual changes, she denies dizziness, confusional episodes, seizures, stroke symptoms, tremor, weakness, problems with balance or falls. The following portions of the patient's history were reviewed and updated as appropriate: allergies, current medications, past family history, past medical history, past social history, past surgicalhistory and problem list. Past Medical History: Diagnosis Date ??? Diabetes mellitus (CMS/HCC) ??? Hypertension ??? Migraine ??? Peripheral neuropathy Past Surgical History: Procedure Laterality Date ??? HYSTERECTOMY ??? KIDNEY STONE SURGERY Social History Socioeconomic History ??? Marital status: Spouse name: Not on file ??? Number of children: Not on file ??? Years of education: Not on file ??? Highest education level: Not on file Tobacco Use ??? Smoking status: Former Smoker ??? Smokeless tobacco: Never Used Vaping Use ??? Vaping Use: Never used Substance and Sexual Activity ??? Alcohol use: Not Currently ??? Drug use: Never ??? Sexual activity: Yes Partners: Male Family History Problem Relation Age of Onset ??? Heart attack Mother ??? Stroke Mother ??? Diabetes Mother ??? Hyperlipidemia Mother ??? Dementia Mother ??? Diabetes Father ??? Hyperlipidemia Father ??? Hypertension Father ??? Heart disease Sister ??? Diabetes Brother Review of Systems Constitutional: Negative. Eyes: Negative. Respiratory: Negative. Cardiovascular: Negative. Gastrointestinal: Negative. Endocrine: Negative. Genitourinary: Negative. Musculoskeletal: Negative. Skin: Negative. Allergic/Immunologic: Negative. Neurological: Positive for syncope ( 2 episodes in the past several months), numbness ( Chronic numbness in her feet from longstanding diabetes) and headaches. Negative for dizziness, tremors, seizures, facial asymmetry, speech difficulty, weakness and light-headedness. Hematological: Negative. Psychiatric/Behavioral: Positive for dysphoric mood. The patient is nervous/anxious. Objective: BP 130/90 Pulse 93 Temp 97.5 ??F (36.4 ??C) Ht 152.4 cm (60 ) Wt 68.5 kg (151 lb) SpO2 98% BMI 29.49 kg/m?? Neurologic Exam Mental Status Oriented to person, place, and time. Attention: normal. Concentration: normal. Speech: speech is normal Level of consciousness: alert Knowledge: consistent with education. Able to read. Able to write. Normal comprehension. Cranial Nerves Cranial nerves II through XII intact. CN II Visual sparrow full to confrontation. Right visual field deficit: none Left visual field deficit: none CN III, IV, Pupils are equal, round, and reactive to light. Extraocular motions are normal. Right pupil: Size: 3 mm. Shape: regular. Reactivity: brisk. Consensual response: intact. Accommodation: intact. Left pupil: Size: 3 mm. Shape: regular. Reactivity: brisk. Consensual response: intact. Accommodation: intact. CN III: no CN III palsy CN : no CN palsy Nystagmus: none Upgaze: normal Downgaze: normal CN V Facial sensation intact. CN VII Facial expression full, symmetric. CN VIII CN VIII normal. CN IX, X CN IX normal. CN X normal. CN XI CN XI normal. CN XII CN XII normal. Motor Exam Muscle bulk: normal Overall muscle tone: normal Right arm tone: normal Left arm tone: normal Right arm pronator drift: absent Left arm pronator drift: absent Right leg tone: normal Left leg tone: normal Strength Strength 5/5 throughout. Sensory Exam Light touch normal. Right leg vibration: decreased from toes Left leg vibration: decreased from toes She has decreased pinprick sensation upper third of her feet to the toes, decreased vibratory sensation of the great toes bilaterally Gait, Coordination, and Reflexes Gait Gait: normal Coordination Romberg: negative Finger to nose coordination: normal Heel to maurice coordination: normal Tandem walking coordination: normal Tremor Resting tremor: absent Intention tremor: absent Action tremor: absent Reflexes Reflexes 2+ except as noted. Physical Exam Vitals reviewed. Constitutional: General: She is not in acute distress. Appearance: Normal appearance. She is well-developed. She is not ill-appearing or toxic-appearing. HENT: Head: Normocephalic and atraumatic. Mouth/Throat: Mouth: Mucous membranes are moist. Eyes: General: No scleral icterus. Extraocular Movements: Extraocular movements intact and EOM normal. Conjunctiva/sclera: Conjunctivae normal. Pupils: Pupils are equal, round, and reactive to light. Cardiovascular: Rate and Rhythm: Normal rate and regular rhythm. Pulmonary: Effort: Pulmonary effort is normal. No respiratory distress. Musculoskeletal: Cervical back: Normal range of motion and neck supple. Skin: General: Skin is warm. Capillary Refill: Capillary refill takes less than 2 seconds. Neurological: Mental Status: She is alert and oriented to person, place, and time. Coordination: Hfzgcc-Kupq-Yfiyjc Test, Heel to Maurice Test and Romberg Test normal. Gait: Gait is intact. Tandem walk normal. Deep Tendon Reflexes: Strength normal. Psychiatric: Mood and Affect: Mood normal. Speech: Speech normal. Behavior: Behavior normal. Thought Content: Thought content normal. Judgment: Judgment normal. Assessment/Plan: Diagnoses and all orders for this visit: 1. Syncope and collapse (Primary) - MRI Brain Without Contrast; Future - MRI Angiogram Head Without Contrast; Future - Ambulatory Referral to Cardiology 2. New onset headache - MRI Brain Without Contrast; Future - MRI Angiogram Head Without Contrast; Future Other orders - ubrogepant (ubrogepant) 50 MG tablet; Take 1 at onset of migraine, may repeat in 2 hours x1 Dispense: 10 tablet; Refill: 5 This patient is here today for evaluation of headaches, onset about 3 months ago. Typically she wasnot a person to get headaches often in the past by report. She is having some degree of constant occipital headache with about 2 migrainous headaches per week. She denies stiff neck, no meningeal signs on exam today. Will check MRI of the brain as well as MRA rule out tumor or aneurysm. Have given her a sample of Ubrelvy to use at the onset of migraine. She admits she is under a great deal of stress, she is very depressed, her sisters recently. She is on amitriptyline 50 mg, Vraylarand Effexor, she was released by her prior psychiatrist and is being managed by her primary care.Recently her PCP has restarted gabapentin for her peripheral neuropathy, she is only been on this since about August 05, I have advised her that gabapentin may help her headaches, I would like her to continue the gabapentin as it may take 4 to 6 weeks to be fully effective for headache prevention. If acceptable by her primary care who prescribes this I recommend that they consider increasing to 3 times daily dosing after a few weeks. She admits that she is taking ibuprofen most every day for various reasons, I have recommended thatshe cut back to less than 10-15 doses per month, we discussed that long-term NSAID use is not only linked to rebound headaches but also risky due to her diabetes. Unable to trial steroids due to her blood sugars up to 500s by report She has not any mental status changes, no red flags on exam today. Certainly if she has worsening headaches, worst headache of her life etc. she is to go to the emergency room. Otherwise I will see her back here in the clinic in about 6 weeks to see how she is doing. She is encouraged to notify my office with any questions concerns or problems prior to her follow-up appointment PCP notes personally reviewed prior to appointment Reviewed medications, potential side effects and signs and symptoms to report. Discussed risk versus benefits of treatment plan with patient and/or family- including medications, labs and radiology that may be ordered. Addressed questions and concerns during visit. Patient and/or family verbalized un derstanding and agree with plan. THE PROVIDER, I PERSONALLY WORE PPE DURING ENTIRE FACE TO FACE ENCOUNTER IN CLINIC WITH THE PATIENT. PATIENT ALSO WORE PPE DURING ENTIRE FACE TO FACE ENCOUNTER EXCEPT FOR A MAX OF 30 SECONDS DURING NEUROLOGICAL EVALUATION OF CRANIAL NERVES AND THEN MASK WAS PLACED BACK OVER PATIENT FACE FOR REMAINDER OF VISIT. I WASHED MY HANDS BEFORE AND AFTER VISIT. Swathi Sahni APRN 08/16/2020 documented in this encounter Plan of Treatment Not on file documented as of this encounter Visit Diagnoses Diagnosis Syncope and collapse- Primary New onset headache Headache documented in this encounter Care Teams Buckle Sewer Machine Relationship Specialty Start Date End Date Duke Esquivel DO [facility] [place] [address] PCP - General Internal Medicine 08/16/20 documented as of this encounter
--- OUTSIDE RECORDS SUMMARY | 2024-02-10 08:52 | XMS_ITS | Continuity of Care Document ---
Author Organization [facility] Address [address] [place] [address] Care Team Providers Care Space Planner Name Role Phone CISCO BURK Primary Care Provider Assessment Encounter Date Assessment Date Assessment LastModified by Organization Details LastModified Time 11/20/2023 11/20/2023 Ms. Tobias has a history of lumbar degenerative disc disease/lumbar spondylosis, sacroiliitis, and diabetic neuropathy. The patient underwent a minimally-invas carrington left SI joint fusion in 04/2021 and a minimally-invas carrington right SI joint fusion in 07/2022. The patient also underwent a SCS implant x2 thoracic leads on 08/26/23. [email or web address] Not available 11/23/2023 18:11:20 Plan of Treatment Reminders Order Date Submit Date Provider Last Modified By Organization Details Last Modified Time Details Appointments OV EST 15 2024 08:15A M JACKELIN SAWANT PA-C Not available Not available Not available Lab None recorded . Referral None recorded . Procedures injectio n/aspira tion joint/bu rsa (PROC) - Left [place]chial [place]urs[place]. [id number]. [address]. 2023 024 [email or web address] Barak Gonzalez MD, [address], [address], [place], [address], 12/02/2023 11:22:18 Surgeries None recorded . Imaging None recorded . Medication Orders None recorded . Patient TargetsNo targets recorded. Patient Instructions Encounter Date Encounter Id Patient Instructions Last Modified By Organization Details Last Modified Time 11/20/2023 [id number] I counseled the patient extensively and informed [...] __ __ __ __ __ _ DOTTIE: [id number] I have reviewed patient's DOTTIE report prior to prescribing Schedule II, III, and IV medications that require review by law. [email or web address] Not available 11/23/2023 18:11:18 Reason for Referral None Reported. Problems Name Problem SNOMED Code Status Onset Date Resolution Date Notes Provider Name and Address Organization Details Recorded Time Bilateral sacroiliac joint pain 8727889225009 9104 Active 2022 Kimmie De La Rosa null, [place] - [facility] - [place] 3 15:20:50 Spinal stenosis of lumbar region 59237416 Active 2022 Kimmie De La Rosa null, [place] [facility] [place] 3 15:20:58 Lumbar spondylosi s 405520042 Active 2022 Kimmie De La Rosa null, [place] [facility] [place] 3 15:21:06 Diabetes mellitus 40411669 Active 2022 Kimmie De La Rosa null, [place] [facility] [place] 3 15:21:22 Trochanter ic bursitis of right hip 0505924467555 00 Active 2022 Kimmie De La Rosa null, [place] [facility] [place] 3 15:21:38 Neck pain 36576936 Active 2022 Kimmie De La Rosa null, [place] [facility] [place] 3 15:21:48 Spinal enthesopat hy 62008747 Active 2022 Kimmie De La Rosa null, [place] [facility] [place] 3 15:21:57 Pain in right hip joint 9372406451636 02 Active 2022 Kimmie De La Rosa null, [place] [facility] [place] 3 15:22:03 Inflammati on of sacroiliac joint 68628400 Active 2022 Kimmie De La Rosa null, [place] [facility] [place] 3 15:10:14 Myofascial pain 958035002 Active 2022 Kimmie De La Rosa null, [place] [facility] [place] 3 08:35:08 Fall Active 2022 Kimmie elam, [place] - [facility] - [place] 3 08:35:10 Spinal enthesopat hy of lumbosacra l region Active 2022 Kimmie De La Rosa null, [place] [facility] [place] 3 08:35:11 Paresthesi a of lower extremity 456970394 Active 2022 Sarahy Ramos DO [address], [place], [address] , [place] [facility] [place] 3 14:34:59 Problem Notes None recorded. Procedures Surgical History Date Name Laterality Status Provider Name and Address Organization Details Recorded Time 024 implantation of permanent spinal cord stimulator completed Marie Tang CINDA - [facility] [place] 11/27/2023 11:32:55 023 EMG/ Nerve Conduction Study completed Sarahy Ramos DO [address], [place], [address], [facility] - [facility] - [place] & [place] 10/14/2022 14:34:53 023 Injection Only completed JACKELIN SAWANT PA-C [address], [place], [address], [facility] - [facility] - [place] & [place] 09/23/2022 12:50:23 023 fusion of sacroiliac joint by posterior approach completed Marie Tang CINDA Jiménez [facility] & [place] 11/27/2023 11:31:13 022 fusion of sacroiliac joint by posterior approach completed Marie Tang CINDA - [facility] & [place] 11/27/2023 11:31:21 Hysterectomy completed Kimmie Jiménez LP[facility] & [place] 03/21/2022 15:27:45 Hernia Repair completed Kimmie LOO - [facility] - [place] & [place] 03/21/2022 15:27:54 ureterorenoscopy with fragmentation and removal of calculus of kidney completed Kimmie De La Rosa CINDA - [facility] - [place] & [place] 03/21/2022 15:28:16 Imaging Results None recorded. Procedure [...] Not Available No t Available Dexcom G6 Stock Driver USE DIRECTED TO PACKAGE INSTRUCTI ONS active [...] Updated DateTime 4 152.4 cm 30.1 kg/m2 65273.2 2 g 97.8 [degF] 99 % 99 % 65 /min 129 mm[Hg] 86 mm[Hg] Justyna Montes De Oca [place] - [facility] - [place] & [place] 10:21:10 Social History None recorded. Functional Status None recorded. Mental Status None recorded. Family History Relationship Description Onset Age of this Age Resolved Age Notes LastModified by Organization Details LastModified Time Father Hypertensive disorder [email or web address] Not available 03/21 15:26:11 Father Diabetes mellitus [email or web address] Not available 12/08 09:04:03 Mother Hypertensive disorder [email or web address] Not available 03/21 15:26:17 Mother Coronary arterioscler [email or web address] Not available 12/08 09:04:03 Mother Cerebrovascu lar accident [email or web address] Not available 15:26:53 Mother Diabetes mellitus [email or web address] Not available 12/08 09:04:03 Mother Kidney disease [email or web address] Not available 03/21 15:27:26 Medical History Condition Response Coronary Artery Disease N None N Gout N Hernia N Head Trauma/Injury N Thyroid Problems N Depression Y COPD N Anemia N Ulcers N Heart Attack ([place]) N Anxiety Disorder N Diabetes Y Bleeding [...] Diagnosis/Indication Diagnosis SNOMED-CT Code Diagnosis ICD10 Code [id number] JACKELIN SAWANT PA-C [facility] [address] [place] [address] 11/20/2023 10:10:38 11/20/2023 10:55:51 Spinal stenosis of lumbar region 09269832 M99.53 M48.061 Lumbar spondylosis 01242 0009 M47.816 Myofascial pain 26216842 9 M79.10 Neuropathy 675283206 G62 .9 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 287084967 E11.40 Complex re gional pain syndrome, type II, lower limb 326024910 G57.73 Ischial bursitis 0082729 03 M70.72 Health Concerns Section Related Observation LastModified by Organization Detai ls LastModified Time None Recorded Concern Status LastModified by Organization Details LastModified Time None Recorded Payers Encounter Date Sequence Insurance Name Policy Number Policy Greenberg Covered Member ID Greenberg Member ID Guarantor Name 11/20/2023 1 SANJUANA-CINDA: [place] [employer]ICA[place]) [id number] Safia Tobias [id number] Safia Tobias Notes Date Note Type Note Provider Name and Address Organization Details Recorded Time 11/20/2023 text/html Ms. Tobias has a history [...] controlling pain, which has led to a decrease/discontin uance of medication(s) for depression. Today the pain level is a 0/10, but fluctuates higher (6 or more). JACKELIN SAWANT PA-C [address], [place], [address], [facility] [place] 11/23/2023 18:12:01 OBGyn Episode No OBEpisode recorded.
[2024-02-10 09:00] VITALS: BP 148/97; PULSE 79; O2SAT 96
--- NOTE | 2024-02-10 09:04 | XR_ITS ---
FINAL REPORT CLINICAL HISTORY: fall, pain pump in place, r/o lead or comp fx FINDINGS: LUMBAR SPINE Three views were obtained. There is no acute fracture. The disc spaces are well-preserved. There is no malalignment. There are postoperative changes of the right sacroiliac joint. IMPRESSION: No acute process. Reviewed, Interpreted and Dictated by Nehemias Merritt III, MD Transcribed by Maya Angeles Authenticated and . [facility]
--- NOTE | 2024-02-10 09:04 | XR_ITS ---
FINAL REPORT CLINICAL HISTORY: fall, patellar pain FINDINGS: Left knee Three views were obtained. There is no fracture or dislocation. There are mild degenerative changes. Small joint effusion is identified. No soft tissue abnormality is identified. IMPRESSION: Small joint effusion. Reviewed, Interpreted and Dictated by Nehemias Merritt III, MD Transcribed by Maya Angeles Authenticated and [facility]
--- NOTE | 2024-02-10 09:04 | XR_ITS ---
FINAL REPORT CLINICAL HISTORY: fall, L hip pain, post surgical FINDINGS: Left femur Two views were obtained. There is no fracture or dislocation. The joint spaces appear normal. No soft tissue abnormality is identified. IMPRESSION: No acute process. Reviewed, Interpreted and Dictated by Nehemias Merritt III, MD Transcribed by Maya Angeles Authenticated and [facility]
--- NOTE | 2024-02-10 09:04 | XR_ITS ---
FINAL REPORT CLINICAL HISTORY: fall, post surgical hip, pain FINDINGS: Left hip Three views were obtained. There is no fracture or dislocation. The joint spaces appear normal. There are postoperative changes of the right sacroiliac joint. IMPRESSION: No acute process. Reviewed, Interpreted and Dictated by Nehemias Merritt III, MD Transcribed by Maya Angeles Authenticated and [facility]
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
[2024-02-10 09:30] VITALS: BP 143/92; PULSE 80; O2SAT 96
[2024-02-10 10:27] VITALS: BP 143/92; PULSE 78; RESP 13; TEMP 36.7; O2SAT 97
== END 2024-02-10 10:30 | disposition home or self-care (01) ==
PROVIDERS: Emergency Provider Emergency Medicine; PCP Internal Medicine
DX: S89.92XA Unspecified injury of left lower leg, initial encounter (principal); M25.552 Pain in left hip; M25.562 Pain in left knee; M54.50 Low back pain, unspecified; Y04.2XXA Assault by strike against or bumped into by another person, initial encounter; Y93.89 Activity, other specified; Y92.89 Other specified places as the place of occurrence of the external cause
CPT/HCPCS: 72100; 73502; 73552; 73564; 99283

== ENCOUNTER 2024-03-05 08:22 | Emergency (ER) | payer BC, SELFPAY ==
[2024-03-05 08:50] VITALS: BP 159/94; PULSE 87; RESP 21; TEMP 36.8; O2SAT 96; BMI 29.0
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
[2024-03-05 09:26] LABS: UTC Influenza A Antigen Negative (Negative); UTC Influenza B Antigen Negative (Negative)
[2024-03-05 09:34] VITALS: BP 159/94; PULSE 87; RESP 21; TEMP 36.8; O2SAT 96
[2024-03-05 10:32] LABS: Coronavirus 19, PCR Not Detected (NotDetected); Influenza A, PCR Not Detected (NotDetected); Influenza B, PCR Not Detected (NotDetected)
== END 2024-03-05 09:49 | disposition home or self-care (01) ==
PROVIDERS: Emergency Provider Nurse Practitioner; PCP Internal Medicine
DX: B34.9 Viral infection, unspecified (principal)
CPT/HCPCS: 87636; 87804; 99213; G0381

== ENCOUNTER 2024-04-06 07:20 | Outpatient (CLI) | payer MEDICAID, SELFPAY ==
--- NOTE | 2024-04-06 07:21 | US_ITS ---
Ultrasound Sonograher: PROCEDURE: US TRANSVAGINAL CLINICAL INDICATION: pelvic pain. LLQ pain COMPARISON: CT CT ABDOMEN PELVIS WO CON from 10/28/2023 FINDINGS: Transvaginal sonographic images of the pelvis were obtained. UTERUS: Surgically absent The vaginal vault is intact. There is just bowel filled with stool seen at the top of the vaginal vault. LEFT OVARY: Surgically absent. RIGHT OVARY: Surgically absent. Both ovaries are surgically absent. There is no fluid in the cul-de-sac. IMPRESSION: 1. The uterus and ovaries are surgically absent. 2. The vaginal vault is intact. 3. There is copious bowel filled with stool seen at the vaginal vault. 4. No fluid in the cul-de-sac. Dictated by: Alberto Su MD 04/06/2024 14:55 Alberto Su MD in OV 04/06/2024 14:55
== END 2024-04-06 23:59 | disposition home or self-care (01) ==
LOC: RAD 07:21
PROVIDERS: PCP Internal Medicine; Visit Provider Obstetrics & Gynecology
DX: R10.2 Pelvic and perineal pain (principal)
CPT/HCPCS: 76830

== ENCOUNTER 2024-05-09 15:43 | Emergency (ER) | payer MEDICAID, SELFPAY ==
[2024-05-09 15:59] VITALS: BP 192/108; PULSE 89; RESP 18; TEMP 36.6; O2SAT 99; BMI 28.9
[2024-05-09 16:18] LABS: Microscopic, Urine URINE MICROSCOPIC (MICROSCOPIC)
[2024-05-09 16:24] LABS: Blood, Urine 3+ (Negative); Glucose,Urine (UA) Negative (Negative); Ketones,Urine 2+ (Negative); Leukocyte Esterase,Urine TRACE (Negative); Nitrate,Urine POSITIVE (Negative); PH,Urine 6.5 (5.0-8.5); Protein,Urine 2+ (Negative); Specific Gravity, Urine 1.025 (1.005-1.030)
--- NOTE | 2024-05-09 16:26 | CT_ITS ---
PROCEDURE INFORMATION: Exam: CT Abdomen And Pelvis Without Contrast Exam date and time: 05/09/2024 4:56 PM Age: 53 years old Clinical indication: Abdominal pain; Flank; Left; Additional info: Left flank TECHNIQUE: Imaging protocol: Computed tomography of the abdomen and pelvis without contrast. Radiation optimization: All CT scans at this facility use at least one of these dose optimization techniques: automated exposure control; mA and/or kV adjustment per patient size (includes targeted exams where dose is matched to clinical indication); or iterative reconstruction. COMPARISON: CT ABDOMEN PELVIS WO CON 28/10/2023 08:06 FINDINGS: Tubes, catheters and devices: Spine stimulator leads at the midthoracic level. Lungs: Calcified granuloma in the lingula. Liver: Mild fatty liver. Gallbladder and biliary ducts: Cholecystectomy. Pancreas: Normal. No ductal dilation. Spleen: Punctate calcification in the spleen. Adrenal glands: Normal. No mass. Kidneys and ureters: 2 mm stone in the mid left ureter, with mild hydronephrosis. Scattered nonobstructing left kidney stones with the largest measuring 3 mm. Right kidney unremarkable. Stomach and bowel: Unremarkable. No obstruction. No mucosal thickening. Appendix: No evidence of appendicitis. Intraperitoneal space: Unremarkable. No free air. No significant fluid collection. Vasculature: Atherosclerosis. Lymph nodes: Unremarkable. No enlarged lymph nodes. Urinary bladder: Unremarkable as visualized. Reproductive: Hysterectomy. Bones/joints: Internal fixation of the right sacroiliac joint. Soft tissues: Anterior abdominopelvic wall repair material. Small fat containing ventral abdominal hernia approximately 2 cm above the umbilicus. Other findings: Calcified left hilar granulomata. IMPRESSION: 1. 2 mm stone in the mid left ureter, with mild hydronephrosis. 2. Scattered nonobstructing left kidney stones with the largest measuring 3 mm. 3. Additional chronic/nonemergent findings as detailed above.
[2024-05-09] MEDS: KETOROLAC 30MG/ML VIAL 15 MG IV (16:30)
[2024-05-09] MEDS: ONDANSETRON 4MG/2ML VIAL 4 MG IV (16:30)
[2024-05-09] MEDS: LACTATED RINGERS 1000ML 500 ML 999 ML IV (16:30)
[2024-05-09 16:44] LABS: Basophils % 0.4 % (0.1-2.0); Eosinophils # 0.1 K/mm3 (0.0-0.4); Hematocrit 45.5 % (37.0-47.0); Hemoglobin 15.7 g/dL (12.2-16.2); Lymphocytes # 2.7 K/mm3 (0.7-4.5); Mean Corpuscular HGB Conc 34.5 g/dL (31.8-35.4); Mean Corpuscular Hemoglobin 29.9 pg (27.0-31.2); Mean Corpuscular Volume 86.7 fl (81-99); Mean Platelet Volume 11.1 fl (7.4-10.4); Monocytes # 0.6 K/mm3 (0.1-1.0); Monocytes % 5.1 % (1.7-9.3); Neutrophils # 7.8 K/mm3 (1.8-7.8); Neutrophils % 69.2 % (37.0-80.0); Platelet Count 267 K/mm3 (142-424); Red Blood Count 5.25 M/mm3 (4.20-5.40); Red Cell Distribution Width 12.2 % (11.5-17.5); White Blood Count 11.3 K/mm3 (4.8-10.8)
[2024-05-09 16:53] LABS: Albumin Level 4.7 g/dl (3.5-5.0); Chloride 103 mmol/L (98-107); Potassium 3.8 mmoL/L (3.5-5.1); Sodium 139 mmol/L (136-145)
[2024-05-09 16:56] LABS: Alanine Aminotransferase 29 U/L (12-78); Albumin/Globulin Ratio 1.4 (1.1-1.8); Alkaline Phosphatase 157 U/L (38-126); Anion Gap 9.8 mEq/L (5-15); Aspartate Amino Transferase 31 U/L (14-36); Bilirubin,Total 1.2 mg/dl (0.2-1.3); Blood Urea Nitrogen 16 mg/dl (7-17); Calcium 9.4 mg/dl (8.4-10.2); Carbon Dioxide 30 mmol/L (22.0-30.0); Creatinine Clearance Estimated 96 mL/min (50-200); Estimated Glomerular Filt Rate 87 ml/min (>60); GFR (African American) 105 ML/MIN (>60); Globulin 3.4 g/dL (1.3-3.2); Glucose 131 mg/dl (74-100); Total Protein,Serum 8.1 g/dl (6.3-8.2)
[2024-05-09] MEDS: MORPHINE 4MG/ML SYRINGE 4 MG IV (17:03)
[2024-05-09 17:07] VITALS: BP 145/89; PULSE 104; O2SAT 94
[2024-05-09 17:07] LABS: Urine Pregnancy, HCG Qual. Negative (Negative)
--- NOTE | 2024-05-09 17:09 | PC.NURSE ---
I rounded on the pt and medicated her for pain. I took her another warm blanket for comfort. no other needs voiced. call waldron in reach.
[2024-05-09 17:15] LABS: Appearance,Urine Cloudy (Clear); Color,Urine Red (Yellow)
[2024-05-09 17:17] LABS: Bilirubin,Urine 1+ (Negative)
[2024-05-09 17:30] VITALS: BP 140/87; PULSE 100; O2SAT 94
[2024-05-09 17:30] LABS: Bacteria,Urine 1+ /lpf; RBC,Urine TNTC #/hpf (0-3)
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
[2024-05-09 18:00] VITALS: BP 132/77; PULSE 91; O2SAT 94
[2024-05-09] MEDS: CEFTRIAXONE SODIUM 1 GM in 0.9 % SODIUM CHLORIDE 50 ML IV (18:28)
--- NOTE | 2024-05-09 18:28 | PC.NURSE ---
call [facility] for possible transfer to [facility] for urology for infected stone per joanna chacon
[2024-05-09 18:30] VITALS: BP 147/83; PULSE 89; O2SAT 99
--- NOTE | 2024-05-09 18:53 | PC.NURSE ---
calling [facility] for transfer for urology for infected kidney stone
--- NOTE | 2024-05-09 19:10 | PC.NURSE ---
STEVE WELSH SPEAKING WITH UROLOGY FROM [facility]
[2024-05-09 19:47] VITALS: BP 141/87; PULSE 87; RESP 18; TEMP 36.7; O2SAT 95
== END 2024-05-09 19:35 | disposition home or self-care (01) ==
PROVIDERS: Nurse Practitioner; Emergency Provider Student in an Organized Health Care Education/Training Program; PCP Internal Medicine
DX: N39.0 Urinary tract infection, site not specified (principal); N20.1 Calculus of ureter; M54.50 Low back pain, unspecified
CPT/HCPCS: 74176; 80053; 81001; 81025; 85025; 87086; 96361; 96365; 96374; 96375; 99284; J0696; J1885; J2270; J2405; J7120

== ENCOUNTER 2024-10-21 18:57 | Emergency (ER) | payer MEDICAID, SELFPAY ==
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
[2024-10-21 19:11] VITALS: BP 155/101; PULSE 94; RESP 18; TEMP 36.7; O2SAT 98; BMI 28.3
--- OUTSIDE RECORDS SUMMARY | 2024-10-21 19:16 | XMS_ITS | Encounter Summary ---
Author Organization [employer] ([place], [place], [place], [place]) Address [address] [place] [address] Care Team Providers Care Sanitary Napkin Machine Tender Name Role Phone Unavailable Primary Care Provider Unavailabl e Reason for Referral * Diagnostic X-Ray (Emergency) - New Request Specialty Diagnoses / Procedures Referred By Omi t Referred To Contact Diagnoses Calculus of kidney Procedures X-ray abdomen KUB 1 view Sekou Hernandez Jr., MD [address] [place] [address] [address] [place] [id number] Phone: tel: fax: Referral ID Status Reason Start Date Expiration Date V isits Requested Visits Authorized [id number] New Request 06/25/2024 06/25/2025 1 1 Encounter Details Date Type Department Care Team (Late st Contact Info) Description 06/25/2024 Outside Orders [facility] [place] [facility] [place] [address] [place] [address] [address] [place] [phone] Sekou Hernandez Jr., MD [address] [place] [address] [address] [place] [address] Calculus of kidney (Primary Dx) Social History Tobacco Use Types Packs/Day Years Used Date Smoking Tobacco: Never Assessed Food Insecurity Answer Date Recorded Food run out past 12 months Not on file 10/09 Food did not last past 12 months Not on file 10/30/2023 Employment Answer Date Recorded Help finding and keeping a job Not on file 0 10/30/2023 Family and Community Support Answer Yemi e Recorded Help with Day to Day Activities Not on file 10/30/2023 Feeling Lonely or Isolated Not on file 10/29 Educational Attainment Answer Date Floyd rded Speak language other than Ghanaian at home Not on file 10/30/2023 Want help with school or training Not on file 10/30/2023 Substance Use Answer Date Recorded Used prescription meds for non-medical reasons N ot on file 10/30/2023 Used illegal drugs past 12 months Not on file 10/30/2023 Comments Unknown Sex and Gender Information Value Date Recorded Sex Assigned at Not on file Legal Sex Female 1:29 PM CDT Gender Identity Not on file Sexual Orientation Not on file documented as of this encounter Plan of Treatment Scheduled Orders Name Type Priority Associated Diagnoses Orde r Schedule X-ray abdomen KUB 1 view Imaging STAT Calculus of kidney Expected: 06/25/2024, Expires: 07/25/2025 documented as of this encounter Visit Diagnoses Diagnosis Calculus of kidney- Primary documented in this encounter
--- OUTSIDE RECORDS SUMMARY | 2024-10-21 19:16 | XMS_ITS | Clinical Summary ---
Author Organization [facility] Address [address] [place] [address] Care Team Providers Care Data Warehouse Consultant Name Role Phone Duke Esquivel DO Primary [...] 71 10/14/2022 9:15 AM EDT Temperature 36.4 C (97.5 F) 08/16/2020 9:57 AM EDT Respiratory Rate - - Oxygen Saturation 98% 10/14/2022 9:15 AM EDT Inhaled Oxygen Concentration - - Weight 62.6 kg (138 lb) 10/14/2022 9:15 AM EDT Height 152.4 cm (5') 10/14/2022 9:15 AM EDT Body Mass Index 26.95 10/14/2022 9:15 AM EDT Plan of Treatment Health Maintenance Due Date Last Done Comments Annual Gynecologic Pelvic an d Breast Exam 1968 DIABETIC EYE EXAM 1978 URINE MICROALBUMIN-CREATININ E RATIO (uACR) 1978 Pneumococcal Vaccine 50+ (1 of 2 - PCV) 08/02/1987 TDAP/TD VACCINES (1 - Tdap) 09/25/1989 09/24/1989 MAMMOGRAM 2008 COLOGUARD 2013 COLON CANCER SCREENING 5 YEA R SIGMOIDOSCOPY 2013 CT COLONOGRAPHY 2013 FECAL OCCULT BLOOD TEST 2013 FIT Testing (1 year) 2013 ZOSTER VACCINE (1 of 2) 2018 ANNUAL PHYSICAL 08/16/2020 HEPATITIS C SCREENING 08/16/2020 HEMOGLOBIN A1C 04/16/2023 10/14/2022 DIABETIC FOOT EXAM 10/15/2023 10/14/2022, 0 10/14/2022, 10/14/2022 LIPID PANEL 10/15/2023 10/14/2022 COVID-19 Vaccine ( season) 2023 04/02/2021, 09/02/2020, 08/04/2020 INFLUENZA VACCINE 12/08/2024 12/25/2016 COLONOSCOPY 02/28/2030 02/29/2020 COLORECTAL CANCER SCREENING 02/28/2030 Hepatitis B Completed 03/16/2008, 09/07, 08/06/2007 Procedures Procedure Name Priority Date/Time Associated Diagnosis Comments LIPID PANEL Routine 10/14/2022 10:16 AM EDT Mixed hyperlipidemia POCT GLYCOSYLATED HEMOGLOBIN (HGB A1C) Routine 10/14/2022 9:32 AM EDT Type 2 diabetes mellitus with hyperglycemia, with long-term current use of insulin SCANNED - COLONOSCOPY 02/29/2020 from Last 3 Months or Most Recently Relevant to Health Maintenance Results * (ABNORMAL) Lipid Panel (10/14/2022 10:16 AM EDT) Total Cholesterol 181 0 - 200 mg/dL 10/14/2022 6:55 PM EDT [facility] Triglycerides 193(H) 0 - 150 mg/dL 10/14/2022 6:55 PM EDT [facility] HDL Cholesterol 51 40 - 60 mg/dL 10/14/2022 6:55 PM EDT [facility] LDL Cholesterol 97 0 - 100 mg/dL 10/14/2022 6:55 PM EDT [facility] VLDL Cholesterol 33 5 - 40 mg/dL 10/14/2022 6:55 PM EDT [facility] LDL/HDL Ratio 1.79 10/14/2022 6:55 PM EDT [facility] Blood Venipuncture / Unknown 10/14/2022 10:16 AM EDT 10/14/2022 10:16 AM EDT Narrative [facility] - 10/14/2022 6:55 PM EDT Cholesterol Reference Ranges (U.S. Department of Health and Human Services ATP III Classifications) Desirable <200 mg/dL Borderline High 200-239 mg/dL High Risk >240 mg/dL Triglyceride Reference Ranges (U.S. Department of Health and Human Services ATP III Classifications) Normal <150 mg/dL Borderline High 150-199 mg/dL High 200-499 mg/dL Very High >500 mg/dL HDL Reference Ranges (U.S. Department of Health and Human Services ATP III Classifications) Low <40 mg/dl (major risk factor for CHD) High >60 mg/dl ('negative' risk factor for CHD) LDL Reference Ranges (U.S. Department of Health and Human Services ATP III Classifications) Optimal <100 mg/dL Near Optimal 100-129 mg/dL Borderline High 130-159 mg/dL High 160-189 mg/dL Very High >189 mg/dL Helen Duong DO LAB BLOOD ORDERABLES Delia l Result [facility]
[address] [place] [address], [place] [phone] * POC Glycosylated Hemoglobin (Hb A1C) (10/14/2022 9:32 AM EDT) Hemoglobin A1C 11.8 % [facility] Lot Number [id number] [facility] Expiration Date 02/19/24 [facility] Blood 10/14/2022 9:32 AM EDT Helen Duong DO POINT OF CARE TEST ORDERA BLES Final Result Performing Organization Address City/[facility]/ZIP Co de Phone Number [facility]
[address] [place] [address], [place] [phone] * SCANNED - COLONOSCOPY (02/29/2020) Kelli Tomas DO CHART REVIEW TABS Final Result from Last 3 Months or Most Recently Relevant to Health Maintenance Care Teams Data Warehouse Consultant Relationship Specialty Start Date End Date Duke Esquivel DO [address] [facility] [address] [place] [address] PCP - General Internal Medicine 08/16/20
--- OUTSIDE RECORDS SUMMARY | 2024-10-21 19:16 | XMS_ITS | Clinical Summary ---
Author Organization [employer] ([place], [place], [place], [place]) Address [address] [place] [address] Care Team Providers Care Balance Clerk Name Role Phone Unavailable Primary Care Provider Unavailabl e Social History Tobacco Use Types Packs/Day Years [...] Date Floyd rded Speak language other than Malawian at home Not on file 10/30/2023 Want [...] on file Sexual Orientation Not on file Plan of Treatment Health Maintenance Due Date Last Done Comments CT Colonography 1968 Colonoscopy 1968 Colorectal Cancer Screening 1968 FOBT/FIT 1968 Fit-DNA (Cologuard) 1968 Sigmoidoscopy 1968 Depression Screening (12+) 1980 Tobacco Cessation Counseling and Screening (12+) 08/01 HIV Screening 08/02/1983 Hepatitis C Screening 1986 DTAP/TDAP/TD VACCINES (1 - Tdap) 08/02/1987 Pap Smear 1989 Breast Cancer Screening 2008 Lipid Panel 2013 Pneumococcal 50+ years (1 of 1 - PCV) 2018 Shingles Vaccine (Zoster) (1 of 2) 2018 COVID-19 VACCINE (1 - 2023- season) 2023 Influenza Vaccine (#1) 2024 Insurance [facility]
--- OUTSIDE RECORDS SUMMARY | 2024-10-21 19:16 | XMS_ITS | Encounter Summary ---
Author Organization Healthcare Address [address] [place] [address] Care Team Providers Care Programmer Analyst Name Role Phone Tiffanie Rasheed Primary Care Provider [phone] Reason for Visit * Reason Comments Med Refill Encounter Details Date Type Department Care Team (Late st Contact Info) Description 11/19/2020 Refill [facility] [address] [place] [address] Shelby Sapp, IT DESKTOP SUPPORT SPECIALIST [address] [facility] [address] [place] [address] Social History Tobacco Use Types [...] as of this encounter Plan of Treatment Not on file documented as of this encounter Visit Diagnoses Not on filedocumented in this encounter Care Teams Programmer Analyst Relationship Specialty Start Date End Date Tiffanie Rasheed PA [address] [place] [address] PCP - General 07/21/20 documented as of this encounter
--- OUTSIDE RECORDS SUMMARY | 2024-10-21 19:16 | XMS_ITS | Referral Summary ---
Author Organization [employer] ([place], [place], [place], [place]) Address [address] [place] [address] Care Team Providers Care Neon Light Installer Name Role Phone Unavailable Primary Care Provider [...] Date Floyd rded Speak language other than Bangladeshi at home Not on file 10/30/2023 Want [...] Orientation Not on file Plan of Treatment Not on file Insurance [facility] [place] [phone]
--- OUTSIDE RECORDS SUMMARY | 2024-10-21 19:16 | XMS_ITS | Clinical Summary ---
Author Organization Healthcare Address [address] [place] [address] Care Team Providers Care Health Program Manager Name Role Phone Tiffanie Rasheed Primary Care Provider [phone] Allergies No known active allergies Medications Insulin Pen Needle 32G X 4 MM misc USE DIRECTED 2 TIMES DAILY 03/08/2019 Active amoxicillin-cla vulanate (Augmentin) 875-125 MG tabletIndicatio ns:Caries Take 1 tablet by mouth 2 (two) times a day. 14 tablet 04/22/2024 Active Active Problems No known active problems Family History Medical History Relation Name Comments [...] Sign Reading Time Taken Comments Blood Pressure 150/91 04/22/2024 8:35 AM EST Pulse 77 04/22/2024 8:35 AM EST Temperature 36.9 C (98.4 F) 12/03/2018 8:36 AM EDT Respiratory Rate - - Oxygen Saturation 100% 04/15/2024 1:23 PM EST Inhaled Oxygen Concentration - - Weight 69.4 kg (153 lb) 04/15/2024 1:23 PM EST Height 152.4 cm (5') 04/15/2024 1:23 PM EST Body Mass Index 29.88 04/15/2024 1:23 PM EST Plan of Treatment Health Maintenance Due Date Last Done Comments Dental Prophylaxis 1968 Dental X-Ray: Bitewings 1968 [facility]-Depression Screening 1968 [facility]-HIV Screening 1968 [facility]-Hepatitis C Screening 1968 [facility]-Infant/Child/Adol SDOH Screenings 1968 [facility]- SDOH Screenings 1986 [facility]-Adult SDOH Screenings 1986 [facility]-DTaP,Tdap,and Td Vaccine s (1 - Tdap) 09/25/1989 09/24/1989 CT Colonography 2013 Colonoscopy 2013 FIT-DNA 2013 FIT 2013 FOBT 2013 Sigmoidoscopy 2013 [facility]-Colorectal Cancer Screening 2013 [facility]-Breast Cancer Screening 2018 [facility]-Pneumococcal Vaccine: 50 + Years (1 of 1 - PCV) 2018 [facility]-Zoster Vaccines (1 of 2) 2018 PIL-[id number]-30 Vaccine ( season) 2023 04/02/2021, 09/02/2020, 08/04/2020 Dental Oral Exam 10/14/2024 04/15/2024 [facility]-Influenza Vaccine (#1) 11/08/202405/20, 12/25/2016 Dental X-Ray: Full Mouth 04/16/2027 025, 01/07/2024 [facility]-Hepatitis B Vaccines Completed 009, 09/17/2007, 08/06/2007 [facility]-Hepatitis A Vaccines Aged Out 019, 02/23/2018 No longer eligible based on patient's age to complete this topic [facility]-Obesity Intervention Completed 025, 01/07/2024 HPV Vaccines Aged Out No longer eligi ble based on patient's age to complete this [...] Associated Diagnosis Comments PANORAMIC RADIOGRAPHIC IMAGE Routine 04/15/2024 1:45 PM EST Closed fracture of tooth, initial encounter COMPREHENSIVE ORAL EVALUATION - NEW OR ESTABLISHED PATIENT Routine 04/15/2024 1:45 PM EST Closed fracture of tooth, initial encounter from Last 3 Months or Most Recently Relevant to Health Maintenance Insurance [facility] [id number] [facility] MEDICAID MEDICAID [facility] Care Teams Health Program Manager Relationship Specialty Start Date End Date Tiffanie Rasheed PA [address] [place] [address] PCP - General 07/21/20
[2024-10-21] MEDS: DEXAMETHASONE 4MG TABLET 10 MG PO (19:18)
[2024-10-21 19:38] VITALS: BP 136/86; PULSE 93; RESP 16; TEMP 36.8; O2SAT 98
== END 2024-10-21 19:40 | disposition home or self-care (01) ==
PROVIDERS: Emergency Provider Emergency Medicine; PCP Internal Medicine
DX: T63.441A Toxic effect of venom of bees, accidental (unintentional), initial encounter (principal)
CPT/HCPCS: 99283; J8540

== ENCOUNTER 2024-11-18 12:41 | Outpatient (CLI) | payer MEDICAID, SELFPAY ==
--- OUTSIDE RECORDS SUMMARY | 2024-11-18 12:44 | XMS_ITS | Clinical Summary ---
Author Organization Healthcare Address [address] [place] [address] Care Team Providers Care Cell Liner Name Role Phone Tiffanie Rasheed Primary Care Provider [phone] Allergies No known active allergies Medications Insulin [...] 2018 [facility]-Zoster Vaccines (1 of 2) 2018 Dental Oral Exam 10/14/2024 04/15/2024 [id number] Vaccine (2024- season) 2024 04/02/2021, 09/02/2020, 08/04/2020 [facility]-Influenza Vaccine (#1) 11/08/202405/20, 12/25/2016 Dental X-Ray: [...] Most Recently Relevant to Health Maintenance Insurance [facility] [employer] [facility] MEDICAID MEDICAID [facility] Care Teams Cell Liner Relationship Specialty Start Date End Date Tiffanie Rasheed PA [address] [place] [address] PCP - General 07/21/20
--- OUTSIDE RECORDS SUMMARY | 2024-11-18 12:44 | XMS_ITS | Clinical Summary ---
Author Organization [facility] Address [address] [place] [address] Care Team Providers Care Child Protective Services Social Worker Name Role Phone Duke Esquivel DO Primary [...] PANEL 10/15/2023 10/14/2022 COVID-19 Vaccine ( season) 2024 04/02/2021, 09/02/2020, 08/04/2020 INFLUENZA VACCINE 12/08/2024 12/25/2016 [...] - 200 mg/dL 10/14/2022 6:55 PM EDT [facility] Triglycerides 193(H) 0 - 150 mg/dL 10/14/2022 6:55 PM EDT [facility] HDL Cholesterol 51 40 - 60 mg/dL 10/14/2022 6:55 PM EDT [facility] LDL Cholesterol 97 0 - 100 mg/dL 10/14/2022 6:55 PM EDT [facility] VLDL Cholesterol 33 5 - 40 mg/dL 10/14/2022 6:55 PM EDT [facility] LDL/HDL Ratio 1.79 10/14/2022 6:55 PM EDT [facility] Blood Venipuncture / Unknown 10/14/2022 10:16 AM EDT 10/14/2022 10:16 AM EDT Narrative [facility] - 10/14/2022 6:55 PM EDT [...] DO LAB BLOOD ORDERABLES Delia l Result [facility]
[address] [place] [address], [place] [phone] * POC Glycosylated Hemoglobin (Hb A1C) (10/14/2022 9:32 AM EDT) Hemoglobin A1C 11.8 % [facility] Lot Number [id number] [facility] Expiration Date 02/19/24 [facility] Blood 10/14/2022 9:32 AM EDT Helen Duong DO POINT OF CARE TEST ORDERA BLES Final Result Performing Organization Address City/[facility]/ZIP Co de Phone Number [facility]
[address] [place] [address], [place] [phone] * SCANNED - COLONOSCOPY (02/29/2020) Kelli Tomas DO CHART REVIEW TABS Final Result from Last 3 Months or Most Recently Relevant to Health Maintenance Care Teams Child Protective Services Social Worker Relationship Specialty Start Date End Date Duke Esquivel DO [address] [facility] [address] [place] [address] PCP - General Internal Medicine 08/16/20
--- OUTSIDE RECORDS SUMMARY | 2024-11-18 12:44 | XMS_ITS | Encounter Summary ---
Author Organization Healthcare Address [address] [place] [address] Care Team Providers Care Furnace Filler Name Role Phone Tiffanie Rasheed Primary Care Provider Reason for Visit * Reason Comments Med Refill Encounter Details Date Type Department Care Team (Late st Contact Info) Description 11/19/2020 Refill [facility] [address] [place] [address] Shelby Sapp, [employer]PER[employer] [address] [facility] [address] [place] [address] Social History Tobacco Use Types [...] on filedocumented in this encounter Care Teams Furnace Filler Relationship Specialty Start Date End Date Tiffanie Rasheed PA [address] [place] [address] PCP - General 07/21/20 documented as of this encounter
[2024-11-18 13:33] LABS: Hemoglobin A1C 7.8 % (4.0-6.0)
[2024-11-18 14:19] LABS: 25-OH Vitamin D, Total 35.2 ng/mL (30-100)
[2024-11-18 17:57] LABS: Cholesterol 191 mg/dl (140-200); HDL Cholesterol 43 mg/dl (40-60); Triglycerides 185 mg/dl (30-150)
== END 2024-11-18 23:59 | disposition home or self-care (01) ==
LOC: LAB 12:42
PROVIDERS: PCP Internal Medicine; Visit Provider Student in an Organized Health Care Education/Training Program
DX: E11.40 Type 2 diabetes mellitus with diabetic neuropathy, unspecified (principal)
CPT/HCPCS: 36415; 80061; 82043; 82306; 83036